=== PATIENT | male | born 1960 | race Caucasian/White ===

== ENCOUNTER 2016-08-20 18:14 | Emergency (ER) | payer OTHER ==
[2016-08-20 19:01] VITALS: BP 133/77; PULSE 77; TEMP 98.3; BMI 33.9
[2016-08-20] MEDS ORDERED: SODIUM CHLORIDE 0.9% 1000 ML INFUS.BAG IV ONE (19:52)
--- NOTE | 2016-08-20 20:05 | PDOC ---
History of Present Illness - General Chief Complaint: Pain Stated Complaint: LEG PAIN Time Seen by Provider: 08/20/16 19:13 - History of Present Illness Initial Comments: 08/20/16 19:59 CHIEF COMPLAINT: leg pain, blood sugar HISTORY OF PRESENT ILLNESS: 56 yo M with hx of HTN, IDDM, and HLD presents to ED with pain to left leg starting this afternoon at 5 pm. Patient reports that he went to his doctor around 4 pm today and was told that he needed to go to the hospital for a blood sugar of over 600, but he didn't want to go to the hospital at first. Around 5 pm he was walking with his son and suddenly he felt pain to his left leg down to the knee, "like a nerve pain and a cramping." PAST MEDICAL HISTORY: as per HPI FAMILY HISTORY: Denies SOCIAL HISTORY: Denies tobacco, alcohol, illicit drug use. SURGICAL HISTORY: Denies ALLERGIES: No known drug allergies REVIEW OF SYSTEMS General/Constitutional: Denies fever or chills. Denies weakness, weight change. HEENT: Denies change in vision. Denies ear pain or discharge. Denies sore throat. Cardiovascular: Denies chest pain or shortness of breath. Respiratory: Denies cough, wheezing, or hemoptysis. Gastrointestinal: Denies nausea, vomiting, diarrhea or constipation. Denies rectal bleeding. Genitourinary: Denies dysuria, frequency, or change in urination. Musculoskeletal: Pain to left leg, from groin to knee. Right lower back pain. Skin and breasts: Denies rash or easy bruising. Neurologic: Denies headache, vertigo, loss of consciousness, or loss of sensation. PHYSICAL EXAM General Appearance: Well-appearing, appropriately dressed. No apparent distress. HEENT: EOMI, PERRLA, normal ENT inspection, normal voice, TMs normal, pharynx normal. No conjunctival pallor. No photophobia, scleral icterus. Neck: Supple. Trachea midline. No tenderness, rigidity, carotid bruit, stridor , lymphadenopathy, or thyromegaly. Respiratory/Chest: Lungs CTAB. No shortness of breath, chest tenderness, respiratory distress, accessory muscle use. No crackles, rales, rhonchi, stridor , wheezing, dullness Cardiovascular: RRR. S1, S2. No JVD, murmur, bradycardia, tachycardia. Vascular Pulses: Dorsalis-Pedis (R): 2+, Dorsalis-Pedis (L): 2+ Gastrointestinal/Abdominal: Normal bowel sounds. Abdomen soft, non-distended. No tenderness or rebound tenderness. No organomegaly, pulsatile mass, guarding , hernia, hepatomegaly, splenomegaly. Lymphatic: No adenopathy, tenderness. Musculoskeletal/Extremities: Pain elicited to left leg with knee flexion, negative straight leg test. FROM of all other extremities, normal capillary refill. Pelvis Stable. No CVA tenderness. No tenderness to extremities, pedal edema, swelling, erythema or deformity. Integumentary: Appropriate color, dry, warm. 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 Fully oriented, alert. Appropriate mood/affect. Motor strength 5/5. No appreciable EOM palsy, facial droop or sensory deficit. Past History - Past Medical History Allergies/Adverse Reactions: Allergies Allergy/AdvReac Type Severity Reaction Status Date / Time No Known Allergies Allergy Verified 06/09/15 10:05 Home Medications: Ambulatory Orders Insulin (Levemir) [Levemir Vial] 2 unit SQ DAILY 08/20/16 Losartan Potassium 25 mg PO DAILY 08/20/16 Simvastatin 20 mg PO DAILY 08/20/16 Anemia: No Asthma: No Cancer: No Cardiac Disorders: No CVA: No COPD: No DVT: No Dementia: No Diabetes: Yes GI Disorders: No Disorders: No HTN: Yes Hypercholesterolemia: Yes HIV: No Kidney Stones: No Liver Disease: No Psychiatric Problems: No Seizures: No Thyroid Disease: No Lung CA: No Other medical history: Bilateral Inguinal Hernias - Surgical History Appendectomy: Yes - Psycho/Social/Smoking Cessation Hx Suicidal Ideation: No Smoking History: Never smoked Hx Alcohol Use: No Drug/Substance Use Hx: No Substance Use Type: None *Physical Exam - Vital Signs Last Vital Signs Temp Pulse Resp BP Pulse Ox 98.3 F 77 20 133/77 99 08/20/16 18:55 08/20/16 18:55 08/20/16 18:55 08/20/16 18:55 08/20/16 18:55 ED Treatment Course - LABORATORY CBC & Chemistry Diagram: 08/20/16 20:12 08/20/16 20:12 Medical Decision Making - Medical Decision Making 08/20/16 20:05 56 yo M with hx of HTN, IDDM, and HLD presents to ED with pain to left leg starting this afternoon at 5 pm. Concern for rhabdo -CBC, CMP, Mg, CPK, Acetone -Dopple US r/o DVT Labs: Creatinine 2.5, no baseline for comparison, otherwise unremarkable. -1L VS US negative for DVT. At this time patient reports that his leg pain has resolved. Advised patient to f/u with PMD for further evaluation of renal failure and of signs and symptoms for return to ER. Patient verbalized understanding and agrees to plan. *DC/Admit/Observation/Transfer Diagnosis at time of Disposition: Acute kidney injury, Left leg pain - Discharge Dispostion Disposition: HOME Condition at time of disposition: Stable Admit: No - Referrals Referrals: Jace Tatum [Primary Care Provider] - Marcel Martin MD [Staff Physician] - - Patient Instructions Printed Discharge Instructions: DI for Kidney Failure Additional Instructions: You must follow up with the urologist within the next week for further evaluation of your kidneys. Please monitor your blood sugar daily and take your diabetes medication as prescribed by your doctor. If you experience any worsening leg pain, shortness of breath, chest pain, dizziness, or any new or worsening symptoms, please return to the ER. Debe seguir con el urlogo en la prxima semana para satish evaluacin ms profunda de stevie riones. Por favor, monitoree caldera nivel de azcar en la tee diariamente y tome stevie medicamentos para la diabetes segn lo recetado por caldera m dico. Si experimenta cualquier empeoramiento del dolor en las piernas, dificultad para respirar, dolor en el pecho, mareos, o cualquier nuevo o empeoramiento de los sntomas, por favor regrese a la medina de emergencias. Print Language: HAITIAN - Post Discharge Activity Work/School Note: Back to Work
--- NOTE | 2016-08-20 20:15 | PDOC ---
*Physical Exam - Vital Signs Last Vital Signs Temp Pulse Resp BP Pulse Ox 98.3 F 77 20 133/77 99 08/20/16 18:55 08/20/16 18:55 08/20/16 18:55 08/20/16 18:55 08/20/16 18:55 Medical Decision Making - Medical Decision Making 08/20/16 20:14 agree with care from FILM CRITIC Lopez
[2016-08-20 20:26] LABS: BASOPHIL 1.1 % (0-2.0); EOSINOPHIL 4.1 % (0-4.5); MCH 29.1 pg (25.7-33.7); MCHC 34.2 g/dl (32.0-35.9); MEAN CELL VOLUME 85.2 fl (80-96); MEAN PLT VOLUME 8.1 fl (7.5-11.1); NEUTROPHILS 41.4 % (42.8-82.8); PLATELET COUNT 218 K/MM3 (134-434); RDW 12.8 % (11.9-15.9); WHITE BLOOD COUNT 4.2 K/mm3 (4.0-10.0)
[2016-08-20 20:38] LABS: INR 0.97 (0.82-1.09); PROTHROMBIN TIME (PATIENT) 10.7 SEC (9.98-11.88)
[2016-08-20 20:42] LABS: URINE APPEARANCE CLEAR; URINE BILIRUBIN NEGATIVE (NEGATIVE); URINE COLOR LTYELLOW; URINE GLUCOSE (UA) 2+ (NEGATIVE); URINE KETONE NEGATIVE (NEGATIVE); URINE LEUK ESTERASE NEGATIVE (NEGATIVE); URINE NITRITE NEGATIVE (NEGATIVE); URINE UROBILINOGEN NEGATIVE E.U./dl (0.2-1.0)
[2016-08-20 20:48] LABS: URINE BLOOD 1+ (NEGATIVE); URINE PROTEIN 2+ (NEGATIVE)
[2016-08-20 20:49] LABS: URINE MUCUS RARE; URINE RBC 1 /hpf (0-3); URINE WBC <1 /hpf (3-5)
[2016-08-20 21:08] LABS: ALBUMIN 3.3 g/dl (3.4-5.0); ANION GAP 7 (8-16); CALCIUM 8.9 mg/dL (8.5-10.1); CO2 26 mmol/L (21-32); GLUCOSE,RANDOM 104 mg/dL (74-106)
[2016-08-20 21:12] LABS: ALK PHOS 109 U/L (45-117); BILIRUBIN,TOTAL 0.3 mg/dL (0.2-1.0); CREATININE 2.5 mg/dL (0.7-1.3); SGOT/AST 14 U/L (15-37); SGPT/ALT 26 U/L (12-78)
[2016-08-20 22:33] LABS: ACETONE SERUM NEGATIVE (NEGATIVE)
== END 2016-08-21 00:11 | disposition home or self-care (01) ==
LOC: JER 18:14
DX: M79.605 Pain in left leg (principal); N17.9 Acute kidney failure, unspecified; E11.9 Type 2 diabetes mellitus without complications; Z79.4 Long term (current) use of insulin; I10 Essential (primary) hypertension; E78.00 Pure hypercholesterolemia, unspecified
CPT/HCPCS: 36415; 80053; 81003; 81015; 82009; 82550; 82553; 83735; 85025; 85610; 87086; 93971-TC; 99281-25

== ENCOUNTER 2018-08-27 16:02 | Inpatient (IN) | payer OTHER ==
[2018-08-27] MEDS ORDERED: ALBUTEROL SO4 2.5/IPRATROPIUM 0.5 INH SOL 3 ML VIAL.NEB. NEB ONE ×3 (16:37→18:01)
[2018-08-27] MEDS ORDERED: guaiFENesin/CODEINE 10 ML UNIT-DOSE CUPS PO ONE (16:37)
[2018-08-27] MEDS ORDERED: guaiFENesin/CODEINE 10 ML UNIT-DOSE CUPS ONE (16:43)
[2018-08-27] MEDS ORDERED: AZITHROMYCIN 250 MG TABLET PO ONE (16:45)
--- NOTE | 2018-08-27 16:59 | PDOC ---
Documentation entered by Ninfa Luna SCRIBE, acting as scribe for Prachi Mendiola MD. Prachi Mendiola MD: This documentation has been prepared by the scribe, Ninfa Luna SCRIBE, under my direction and personally reviewed by me in its entirety. I confirm that the documentation accurately reflects all work, treatment, procedures, and medical decision making performed by me. History of Present Illness - General Chief Complaint: Cold Symptoms Stated Complaint: COUGH,FEVER Time Seen by Provider: 08/27/18 16:04 History Source: Patient Exam Limitations: No Limitations - History of Present Illness Initial Comments: 08/27/18 16:41 The patient is a 58-year-old male with a past medical history significant for HTN, DM, anemia, HLD, and prior surgical history of appendectomy presents to the emergency department with a cough, fever, shortness of breath, elevated blood sugar and elevated blood pressure. Per daughter at bedside, the patients been having a 1-day history of a cough, associated with high-grade fever to 103s. The daughter reports, the patient took Tylenol last night. The patient was also noted to have elevated blood pressure, states the machine was unable to read it, and elevated glucose levels. The daughter reports the patient has a blocked vein in his heart, for which he was scheduled for a procedure, which he was unable to complete secondary to kidney not working. Allergies: NKA Social history: No tobacco, alcohol or recreational drug use reported. PCP: Dr. Mable Tatum. Past History - Past Medical History Allergies/Adverse Reactions: Allergies Allergy/AdvReac Type Severity Reaction Status Date / Time No Known Allergies Allergy Verified 08/27/18 16:04 Home Medications: Ambulatory Orders Losartan Potassium 25 mg PO DAILY 08/20/16 Atorvastatin Ca [Lipitor] 20 mg PO HS 08/27/18 Carvedilol 3.125 mg PO DAILY 08/27/18 Insulin Degludec [Tresiba Flextouch U-100] 40 unit SQ DAILY 08/27/18 Anemia: No Asthma: No Cancer: No Cardiac Disorders: No CVA: No COPD: No DVT: No Dementia: No Diabetes: Yes GI Disorders: No Disorders: No HTN: Yes Hypercholesterolemia: Yes Kidney Stones: No Liver Disease: No Psychiatric Problems: No Seizures: No Thyroid Disease: No Lung CA: No - Surgical History Appendectomy: Yes - Suicide/Smoking/Psychosocial Hx Smoking History: Never smoked Hx Alcohol Use: No Drug/Substance Use Hx: No Substance Use Type: None Review of Systems - Review of Systems Able to Perform ROS?: Yes Comments:: 08/27/18 16:19 GENERAL/CONSTITUTIONAL: +fever. No chills. No weakness. HEAD, EYES, EARS, NOSE AND THROAT: No change in vision. No ear pain or discharge. No sore throat. CARDIOVASCULAR: +elevated BP. No chest pain or shortness of breath. RESPIRATORY: +cough. No wheezing, or hemoptysis. GASTROINTESTINAL: No nausea, vomiting, diarrhea or constipation. GENITOURINARY: No dysuria, frequency, or change in urination. MUSCULOSKELETAL: No joint or muscle swelling or pain. No neck or back pain. SKIN: No rash NEUROLOGIC: No headache, vertigo, loss of consciousness, or change in strength/ sensation. ENDOCRINE: +elevated glucose levels. No increased thirst. No abnormal weight change. HEMATOLOGIC/LYMPHATIC: No anemia, easy bleeding, or history of blood clots. ALLERGIC/IMMUNOLOGIC: No hives or skin allergy. *Physical Exam - Vital Signs Last Vital Signs Temp Pulse Resp BP Pulse Ox 99.6 F 88 20 190/90 H 95 08/27/18 16:03 08/27/18 16:03 08/27/18 16:03 08/27/18 16:03 08/27/18 16:03 - Physical Exam Comments: GENERAL: Awake, alert, and fully oriented, in no acute distress HEAD: No signs of trauma EYES: PERRLA, EOMI, sclera anicteric, conjunctiva clear ENT: Auricles normal inspection, hearing grossly normal, nares patent, oropharynx clear without exudates. Moist mucosa NECK: Normal ROM, supple, no lymphadenopathy, JVD, or masses LUNGS: Mild tachypnea. Dec air entry B/L with exp wheezes on L side. No rhonchi , no rales. HEART: Regular rate and rhythm, normal S1 and S2, no murmurs, rubs or gallops ABDOMEN: Soft, nontender, normoactive bowel sounds. No guarding, no rebound. No masses EXTREMITIES: Normal range of motion, no edema. No clubbing or cyanosis. No cords, erythema, or tenderness NEUROLOGICAL: Cranial nerves II through XII grossly intact. Normal speech, normal gait. Motor and sensation intact SKIN: Warm, Dry, normal turgor, no rashes or lesions noted. ED Treatment Course - LABORATORY CBC & Chemistry Diagram: 08/27/18 17:45 08/27/18 17:45 - RADIOLOGY Radiology Studies Ordered: Category Date Time Status CHEST PA & LAT [RAD] Stat Radiology 08/27/18 16:30 Ordered Medical Decision Making - Medical Decision Making 08/27/18 16:36 DDx includes flu vs pna vs bronchitis. Will give albuterol and robitussin AC for symptoms. CXR to r/o pna. Flu swab. 08/27/18 16:54 CXR c/w pneumonia. Will treat symptomatically. If he does not significantly improve, will admit. 08/27/18 17:36 Pt reassessed. Wheezing has worsened, but air movement has improved. Will send labs and add IV fluids, rocephin, and additional nebs. Will plan for admission. 08/27/18 18:40 Pt accepted for admission by Dr. Perez. *DC/Admit/Observation/Transfer Diagnosis at time of Disposition: Community acquired pneumonia Qualifiers: Laterality: right Lung location: middle lobe of lung Qualified Code(s): J18.1 - Lobar pneumonia, unspecified organism - Discharge Dispostion Condition at time of disposition: Stable Decision to Admit order: Yes - Referrals - Patient Instructions - Post Discharge Activity
[2018-08-27] MEDS ORDERED: AZITHROMYCIN 500 MG TABLET ONE (17:00)
[2018-08-27] MEDS ORDERED: CEFTRIAXONE 1 GM in DEXTROSE 5%-WATER - 50 ML IVPB ONE (17:35)
[2018-08-27] MEDS ORDERED: SODIUM CHLORIDE 1,000 ML IV STA (17:35)
[2018-08-27] MEDS ORDERED: cefTRIAXone SODIUM 1 GM VIAL ONE (18:00)
[2018-08-27] MEDS: ALBUTEROL SO4 2.5/IPRATROPIUM 0.5 INH SOL 3 ML VIAL.NEB. NEB SCH ×3 (18:01→18:20)
[2018-08-27 18:14] LABS: BASO % 1.1 % (0-2.0); EOS % 0.9 % (0-4.5); HEMOGLOBIN 9.7 GM/dl (11.7-16.9); LYMPH % 9.9 % (8-40); MCH 28.6 pg (25.7-33.7); MCHC 32.3 g/dl (32.0-35.9); MEAN CELL VOLUME 88.7 fl (80-96); MEAN PLT VOLUME 8.6 fl (7.5-11.1); MONO % 6.3 % (3.8-10.2); NEUT % 81.8 % (42.8-82.8); PLATELET COUNT 251 K/MM3 (134-434); RBC 3.38 M/mm3 (4.00-5.60); RDW 14.1 % (11.9-15.9); WHITE BLOOD COUNT 9.9 K/mm3 (4.0-10.8)
[2018-08-27 18:23] LABS: ALBUMIN 3.3 g/dl (3.4-5.0); BILIRUBIN,TOTAL 0.9 mg/dl (0.2-1); CALCIUM 8.1 mg/dl (8.5-10); CREATININE 3.1 mg/dl (0.55-1.3); POTASSIUM 5.1 mmol/L (3.5-5.1); TOT PROT 6.9 g/dl (6.4-8.2)
--- NOTE | 2018-08-27 20:20 | HP ---
CHIEF COMPLAINT: SOB, Fever, Elevated BP PCP: Dr. Jace Tatum HISTORY OF PRESENT ILLNESS: This is a 58 y/o man with a PMHx of HTN, DM, Renal Insufficiency, Anemia. Who presents to the ED with his family for SOB, fever, productive yellow cough, elevated BP and BS. The patient is Korean speaking and the daughter translated. Per the daughter the patient had subjective fevers of 103 at home yesterday and he was having difficulty breathing and generalized bodyaches. Per the daughter patient was suppose to have a procedure for a "artery blockage" but it was cancelled due to his kidney function. Patient missed his home meds today due to feeling ill. Patient denies dizziness, CP, palpitations, AP, N/V/D , constipation, dysuria. Patient had recent travel [place] 2 months ago. ER course was notable for: (1) Hgb 9.7 (2) Influenza A+B Negative (3) Recent Travel: [facility] PAST MEDICAL HISTORY: See Above PAST SURGICAL HISTORY: Social History: Smoking: Never Alcohol: None Drugs: None Lives with family Family History: Non-Contributory Allergies No Known Allergies Allergy (Verified 08/27/18 16:04) HOME MEDICATIONS: Home Medications Medication Instructions Recorded Losartan Potassium 25 mg PO DAILY 08/20/16 Atorvastatin Ca [Lipitor] 20 mg PO HS 08/27/18 Carvedilol 3.125 mg PO DAILY 08/27/18 Insulin Degludec [Tresiba 40 unit SQ DAILY 08/27/18 Flextouch U-100] REVIEW OF SYSTEMS CONSTITUTIONAL: fever, chills ,malaise Absent: diaphoresis, generalized weakness, loss of appetite, weight change HEENT: Absent: rhinorrhea, nasal congestion, throat pain, throat swelling, difficulty swallowing, mouth swelling, ear pain, eye pain, visual changes CARDIOVASCULAR: Absent: chest pain, syncope, palpitations, irregular heart rate, lightheadedness , peripheral edema RESPIRATORY: cough, shortness of breath, dyspnea with exertion, Absent: orthopnea, wheezing, stridor, hemoptysis GASTROINTESTINAL: Absent: abdominal pain, abdominal distension, nausea, vomiting, diarrhea, constipation, melena, hematochezia GENITOURINARY: Absent: dysuria, frequency, urgency, hesitancy, hematuria, flank pain, genital pain MUSCULOSKELETAL: myalgia Absent: arthralgia, joint swelling, back pain, neck pain SKIN: Absent: rash, itching, pallor HEMATOLOGIC/IMMUNOLOGIC: Absent: easy bleeding, easy bruising, lymphadenopathy, frequent infections ENDOCRINE: Absent: unexplained weight gain, unexplained weight loss, heat intolerance, cold intolerance NEUROLOGIC: Absent: headache, focal weakness or paresthesias, dizziness, unsteady gait, seizure, mental status changes, bladder or bowel incontinence PSYCHIATRIC: Absent: anxiety, depression, suicidal or homicidal ideation, hallucinations. PHYSICAL EXAMINATION Vital Signs - 24 hr 08/27/18 08/27/18 16:03 19:10 Temperature 99.6 F 99.2 F Pulse Rate 88 Pulse Rate [ 88 Radial] Respiratory 20 18 Rate Blood Pressure 190/90 H Blood Pressure 185/91 H [Arm] O2 Sat by Pulse 95 95 Oximetry (%) GENERAL: Awake, alert, and fully oriented, in mild resp distress. HEAD: Normal with no signs of trauma. EYES: Pupils equal, round and reactive to light, extraocular movements intact, sclera anicteric, conjunctiva clear. No lid lag. EARS, NOSE, THROAT: Ears normal, nares patent, oropharynx clear without exudates. Dry mucous membranes. NECK: Normal range of motion, supple without lymphadenopathy, JVD, or masses. LUNGS: Breath sounds diminished bilaterally. +wheezes, + crackles. + accessory muscle use. HEART: Regular rate and rhythm, normal S1 and S2 without murmur, rub or gallop. ABDOMEN: Soft, nontender, not distended, normoactive bowel sounds, no guarding, no rebound, no masses. No hepatomegaly or splenomegaly. MUSCULOSKELETAL: Normal range of motion at all joints. No bony deformities or tenderness. No CVA tenderness. UPPER EXTREMITIES: 2+ pulses, warm, well-perfused. No cyanosis. No clubbing. No peripheral edema. LOWER EXTREMITIES: 2+ pulses, warm, well-perfused. No calf tenderness.+2 peripheral edema bilaterally. NEUROLOGICAL: Cranial nerves II-XII intact. Normal speech. Normal gait. PSYCHIATRIC: Cooperative. Good eye contact. Appropriate mood and affect. SKIN: Warm, dry, normal turgor, no rashes or lesions noted, normal capillary refill. Laboratory Results - last 24 hr 08/27/18 08/27/18 08/27/18 16:47 17:45 17:45 WBC 9.9 RBC 3.38 L Hgb 9.7 L Hct 30.0 L MCV 88.7 MCH 28.6 MCHC 32.3 RDW 14.1 Plt Count 251 MPV 8.6 Absolute Neuts (auto) 8.1 Neutrophils % 81.8 Lymphocytes % 9.9 Monocytes % 6.3 Eosinophils % 0.9 Basophils % 1.1 Sodium 138 Potassium 5.1 Chloride 111 H Carbon Dioxide 20 L Anion Gap 7 L BUN 42.0 H Creatinine 3.1 H Est GFR (CKD-EPI)AfAm 24.21 Est GFR (CKD-EPI)NonAf 20.89 Random Glucose 101 Calcium 8.1 L Total Bilirubin 0.9 AST 21 ALT 18 Alkaline Phosphatase 58 Total Protein 6.9 Albumin 3.3 L Influenza A (Rapid) Negative Influenza B (Rapid) Negative ASSESSMENT/PLAN: This is a 58 y/o man admitted for Community Acquired Pneumonia, Acute Respiratory Failure, Acute on Chronic CKD for further evaluation of their emergent condition. Plan: See Problem List FEN PO Fluids as tolerated Replete lytes prn Low Na Diabetic Diet DVT ppx OOB SCDs Heparin SQ Dispo: Requires Inpatient Care Problem List - Problem (1) Community acquired pneumonia Assessment/Plan: CURB65 1 Blood Cultures-pending Urine Cultures- pending Urine Legionella Chest Xray image RML Infiltrate, ? LLL Infiltrate Ceftriaxone, Azithromycin given in ED, will continue O2 Duonebs Monitor CBC, BMP Tylenol prn Code(s): J18.9 - PNEUMONIA, UNSPECIFIED ORGANISM Qualifiers: Laterality: right Lung location: middle lobe of lung Qualified Code(s): J18.1 - Lobar pneumonia, unspecified organism (2) Acute kidney injury Assessment/Plan: Likely acute on chronic CKD Patient and patient's daughter report seeing Dr Dumont outpatient Monitor BMP Renal US Consider Nephrology consult if no improvement Avoid Nephrotoxic drugs Code(s): N17.9 - ACUTE KIDNEY FAILURE, UNSPECIFIED (3) HTN (hypertension) Assessment/Plan: sub optimal Per patient's daughter patient did not take his home meds today due to illness Continue home meds Monitor BP Code(s): I10 - ESSENTIAL (PRIMARY) HYPERTENSION (4) HLD (hyperlipidemia) Assessment/Plan: Continue home med Code(s): E78.5 - HYPERLIPIDEMIA, UNSPECIFIED (5) Anemia Assessment/Plan: Likely secondary to CKD Hgb 9.7 Will transfuse if Hgb < 7.0 Monitor CBC Code(s): D64.9 - ANEMIA, UNSPECIFIED Visit type - Emergency Visit Emergency Visit: Yes ED Registration Date: 08/27/18 Care time: The patient presented to the Emergency Department on the above date and was hospitalized for further evaluation of their emergent condition. - New Patient This patient is new to me today: Yes Date on this admission: 08/27/18 - Critical Care Critical Care patient: No
[2018-08-27] MEDS ORDERED: ATORVASTATIN CA 80 MG TABLET (FP) PO SCH (22:00)
[2018-08-27] MEDS: INSULIN SLIDING SCALE (NOVOLOG) 1 VIAL SQ SCH (22:04)
[2018-08-27] MEDS: HEPARIN NA (PORCINE) 5,000 UNITS/ML 1ML VIAL SQ SCH (22:12)
[2018-08-27] MEDS: CARVEDILOL 3.125 MG TABLET (FP) PO SCH (22:12)
[2018-08-27 22:47] LABS: EPITHELIAL CELLS FEW /hpf
[2018-08-28] MEDS: INSULIN SLIDING SCALE (NOVOLOG) 1 VIAL SQ SCH ×4 (06:37→21:31)
--- NOTE | 2018-08-28 08:14 | PN ---
Physical Exam: SUBJECTIVE: Patient seen and examined, pt c/o persistent dry cough,sob, epigastric pain, denies cp, palpitations, N/V/D or urinary symptoms. OBJECTIVE: Vital Signs Period Temp Pulse Resp BP Sys/Newman Pulse Ox Last 24 Hr 98.6 F-99.8 F 71-88 18-21 148-190/70-95 95-100 GENERAL: The patient is awake, alert, and fully oriented, in no acute distress. HEAD: Normal with no signs of trauma. EYES: PERRL, extraocular movements intact, sclera anicteric, conjunctiva clear. No ptosis. ENT: Ears normal, nares patent, oropharynx clear without exudates, moist mucous membranes. NECK: Trachea midline, full range of motion, supple. LUNGS: Breath sounds equal, diminished bilaterally, no wheezes, no crackles, no accessory muscle use. HEART: Regular rate and rhythm, S1, S2 without murmur, rub or gallop. ABDOMEN: Soft, mild epigastric tenderness, non-distended, nor-moactive bowel sounds, no guarding, no rebound, no hepatosplenomegaly, no masses. EXTREMITIES: 2+ pulses, warm, well-perfused, no edema. NEUROLOGICAL: Cranial nerves II through XII grossly intact. Normal speech, gait not observed. PSYCH: Normal mood, normal affect. SKIN: Warm, dry, normal turgor, no rashes or lesions noted Laboratory Results - last 24 hr 08/27/18 08/27/18 08/27/18 16:47 17:45 17:45 WBC 9.9 RBC 3.38 L Hgb 9.7 L Hct 30.0 L MCV 88.7 MCH 28.6 MCHC 32.3 RDW 14.1 Plt Count 251 MPV 8.6 Absolute Neuts (auto) 8.1 Neutrophils % 81.8 Lymphocytes % 9.9 Monocytes % 6.3 Eosinophils % 0.9 Basophils % 1.1 Sodium 138 Potassium 5.1 Chloride 111 H Carbon Dioxide 20 L Anion Gap 7 L BUN 42.0 H Creatinine 3.1 H Est GFR (CKD-EPI)AfAm 24.21 Est GFR (CKD-EPI)NonAf 20.89 POC Glucometer Random Glucose 101 Calcium 8.1 L Total Bilirubin 0.9 AST 21 ALT 18 Alkaline Phosphatase 58 Total Protein 6.9 Albumin 3.3 L Urine Color Urine Appearance Urine pH Urine Protein Urine Glucose (UA) Urine Ketones Urine Blood Urine Nitrite Urine Bilirubin Urine Urobilinogen Ur Leukocyte Esterase Urine RBC Urine WBC Ur Transition Epith Cell Urine Bacteria Influenza A (Rapid) Negative Influenza B (Rapid) Negative 08/27/18 08/27/18 08/28/18 20:59 22:15 06:04 WBC RBC Hgb Hct MCV MCH MCHC RDW Plt Count MPV Absolute Neuts (auto) Neutrophils % Lymphocytes % Monocytes % Eosinophils % Basophils % Sodium Potassium Chloride Carbon Dioxide Anion Gap BUN Creatinine Est GFR (CKD-EPI)AfAm Est GFR (CKD-EPI)NonAf POC Glucometer 107 103 Random Glucose Calcium Total Bilirubin AST ALT Alkaline Phosphatase Total Protein Albumin Urine Color Yellow Urine Appearance Clear Urine pH 5.5 Urine Protein 3+ H Urine Glucose (UA) Negative Urine Ketones Negative Urine Blood 2+ H Urine Nitrite Negative Urine Bilirubin Negative Urine Urobilinogen 0.2 Ur Leukocyte Esterase Negative Urine RBC 5-10 Urine WBC 0-2 Ur Transition Epith Cell Few Urine Bacteria Few Influenza A (Rapid) Influenza B (Rapid) Active Medications Generic Name Dose Route Start Last Admin Trade Name Freq PRN Reason Stop Dose Admin Albuterol/Ipratropium 1 amp 08/27/18 19:26 Duoneb - NEB Q6H PRN SHORTNESS OF BREATH Atorvastatin Calcium 20 mg 08/27/18 22:00 08/27/18 22:12 Lipitor - PO 20 mg HS [facility] Administration Carvedilol 3.125 mg 08/27/18 21:45 08/27/18 22:12 Coreg - PO 3.125 mg BID [facility] Administration Guaifenesin 10 ml 08/27/18 19:28 Robitussin Dm - PO Q6H PRN COUGH Heparin Sodium (Porcine) 5,000 unit 08/27/18 22:00 08/27/18 22:12 Heparin - SQ 5,000 unit BID [facility] Administration Azithromycin 500 mg in 250 mls @ 250 mls/hr 08/28/18 10:00 Zithromax 500mg Ivpb (Pre-Docked) IVPB DAILY [facility] Ceftriaxone Sodium 50 mls @ 100 mls/hr 08/28/18 10:00 Ceftriaxone 1 Gm-D5w Bag IVPB DAILY [facility] Protocol Insulin Aspart 1 vial 08/27/18 22:00 08/28/18 06:37 Novolog Vial Sliding Scale - SQ Not Given ACHS [facility] Protocol ASSESSMENT/PLAN: This is a 58 y/o man with a PMHx of HTN, DM,, CAD,Renal Insufficiency and Anemia , who presents to the ED with his family for SOB, fever, productive yellow cough , elevated BP and BS. Admitted with CAP and acute on chronic CKD. Dr. Leonard Tatum Card Dr. Cardenas Renal Dr. Dumont * Community acquired pneumonia -[id number] 1 -Blood Cultures-pending -Urine Cultures- pending -Urine Legionella neg - Influenza ruled out -Chest Xray image infiltrate and upper lung mass - pulmonary consulted - will get CT chest -will cont on Ceftriaxone, Azithromycin - afebrile with no leukocytosis - monitor O2 -Duonebs/ cough meds -Tylenol prn *r/o TB,recent travel to [facility] -CxR- Upper lung mass - isolation precautions - will check AFB/ sputum culture/ Quantiferon's - PPD ordered - CT chest * Acute kidney injury on chronic CKD - cre 2.5 on 08/20/16 - Bun/cre 42/3.1 >40/3.3 - Nephrology consult - Renal US - IV hydration - will hold off on Losartan -Renal US - will f/u on Gate Agent * CAD - follows with cardiology Dr. Cardenas - reports abnormal stress test, cardiac cath on hold due to CKD - denies cp - will resume on ASA, BB and Statin * HTN-elevated, likely due to medication non complains - will cont on Coreg -will hold off Losartan in view of MARIANO -Monitor BP *HLD - will cont on Statin * Anemia-Likely secondary to CKD -(12.2 on 08/20/16) -Hgb 9.7/30> 8.3/25.7 - will check stool OB, fe studies, b12,Folate -Will transfuse if Hgb < 7.0 -Monitor CBC * DM - FS - Lispro sliding scale - Tresiba NF- will substitute with Levemir (lower dose in view of low BS) - consistent carb diet * VTE: Heparin SQ * F/E/N: Diabetes diet/ IVF Visit type - Emergency Visit Emergency Visit: Yes ED Registration Date: 08/27/18 Care time: The patient presented to the Emergency Department on the above date and was hospitalized for further evaluation of their emergent condition. - New Patient This patient is new to me today: No - Critical Care Critical Care patient: No
[2018-08-28 09:48] LABS: EOS % 1.9 % (0-4.5); HEMATOCRIT 25.7 % (35.4-49); HEMOGLOBIN 8.3 GM/dl (11.7-16.9); MCH 28.5 pg (25.7-33.7); MCHC 32.2 g/dl (32.0-35.9); MEAN CELL VOLUME 88.4 fl (80-96); MEAN PLT VOLUME 8.7 fl (7.5-11.1); MONO % 8.5 % (3.8-10.2); NEUT % 71.6 % (42.8-82.8); PLATELET COUNT 169 K/MM3 (134-434); RBC 2.91 M/mm3 (4.00-5.60); RDW 13.6 % (11.9-15.9); WHITE BLOOD COUNT 6.2 K/mm3 (4.0-10.8)
[2018-08-28 09:52] LABS: CALCIUM 7.8 mg/dl (8.5-10); CREATININE 3.3 mg/dl (0.55-1.3); POTASSIUM 4.9 mmol/L (3.5-5.1)
[2018-08-28] MEDS: SODIUM CHLORIDE 1,000 ML IV SCH (10:13)
[2018-08-28] MEDS: ALBUTEROL SO4 2.5/IPRATROPIUM 0.5 INH SOL 3 ML VIAL.NEB. NEB PRN ×2 (10:14→18:14)
[2018-08-28] MEDS: CEFTRIAXONE 1 G/50 ML PREMIX 50 ML IVPB SCH (10:14)
[2018-08-28] MEDS: ASPIRIN COATED 81 MG TABLET.EC PO SCH (10:14)
[2018-08-28] MEDS: CARVEDILOL 3.125 MG TABLET (FP) PO SCH ×2 (10:14→21:19)
[2018-08-28] MEDS: PANTOPRAZOLE 40 MG TABLET (FP) PO SCH (10:14)
[2018-08-28] MEDS: AZITHROMYCIN IVPB 500 MG/250 ML BAG IVPB SCH (10:15)
[2018-08-28] MEDS: INSULIN (LEVEMIR) 100 UNITS/ML UNITS SQ SCH (10:15)
[2018-08-28] MEDS: HEPARIN NA (PORCINE) 5,000 UNITS/ML 1ML VIAL SQ SCH ×2 (10:16→21:20)
[2018-08-28] MEDS: guaiFENesin/D-METHORPHAN HB 10 ML UNIT-DOSE CUPS PO PRN ×3 (10:16→23:29)
[2018-08-28] MEDS ORDERED: TUBERCULIN PPD 5 TU/0.1ML SYRINGE (IN PATIENT USE ONLY) ID ONE (11:00)
--- NOTE | 2018-08-28 12:55 | EKG ---
Test Reason : Blood Pressure : / mmHG Vent. Rate : 087 BPM Atrial Rate : 087 BPM P-R Int : 162 ms QRS Dur : 072 ms QT Int : 352 ms P-R-T Axes : 060 008 086 degrees QTc Int : 423 ms NORMAL SINUS RHYTHM NORMAL ECG NO PREVIOUS ECGS AVAILABLE Confirmed by JUAN ONEIL MD ([id number]) on 08/28/2018 12:55:35 PM Referred By: DR CORDON Confirmed By:JUAN ONEIL MD
[2018-08-28] MEDS: amLODIPine BESYLATE 5 MG TABLET (FP) PO SCH (13:59)
--- NOTE | 2018-08-28 15:01 | CON.PULM ---
Consult Consult Specialty:: PULM/CCM Referred by:: Hospitalist Reason for Consultation:: SOB - History of Present Illness Chief Complaint: SOB History of Present Illness: 58 M, HTN, DM, Renal Insufficiency, Anemia, and remote smoking history. Patient is mostly Ethiopian speaking and is a poor historian. His family is at the bedside for further information and translation. They report that he was admitted for almost 2 months in the about 10 years ago in the . Does not sound as if he had respiratory failure. Apparently when [place] the [place] he had a normal CXR. No CXR since that time. No previous CT chest. Has had URI symptoms for the past week or so. [place] the [place] about 5 weeks ago. Reports fever, malaise, and pleuritic type CP. No reported hemoptysis or night sweats. No unexplained weight loss. No sick contacts. Family denies any previous P TB contacts. 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 - History Source History Provided By: Patient, Family Member Limitations to Obtaining History: Language Barrier - Past Medical History Pulmonary: Yes: Pneumonia, Other (prolonged 2 month hospitalization ). No: Asthma, Cancer, COPD, O2 Dependent, Previously Intubated, Pulmonary Embolus, Pulmonary Fibrosis, Sleep Apnea - Alcohol/Substance Use Hx Alcohol Use: No - Smoking History Smoking history: Never smoked Have you smoked in the past 12 months: No Home Medications - Allergies Allergies/Adverse Reactions: Allergies Allergy/AdvReac Type Severity Reaction Status Date / Time No Known Allergies Allergy Verified 08/27/18 16:04 - Home Medications Home Medications: Ambulatory Orders Losartan Potassium 25 mg PO DAILY 08/20/16 Atorvastatin Ca [Lipitor] 20 mg PO HS 08/27/18 Carvedilol 3.125 mg PO DAILY 08/27/18 Insulin Degludec [Tresiba Flextouch U-100] 40 unit SQ DAILY 08/27/18 Review of Systems - Review of Systems Constitutional: reports: Chills, Fever, Malaise. denies: Night Sweats Eyes: reports: No Symptoms HENT: reports: No Symptoms Neck: reports: No Symptoms Cardiovascular: reports: Chest Pain, Shortness of Breath. denies: Edema, Palpitations Respiratory: reports: Cough, Snoring, SOB, SOB on Exertion. denies: Hemoptysis , Wheezing Gastrointestinal: reports: No Symptoms Genitourinary: reports: No Symptoms Breasts: reports: No Symptoms Reported Musculoskeletal: reports: No Symptoms Integumentary: reports: No Symptoms Neurological: reports: No Symptoms Endocrine: reports: No Symptoms Hematology/Lymphatic: reports: No Symptoms Psychiatric: reports: No Symptoms Physical Exam Vital Sings: Vital Signs Temperature 99.1 F 08/28/18 12:59 Pulse Rate 66 08/28/18 12:59 Respiratory Rate 19 08/28/18 12:59 Blood Pressure 162/83 08/28/18 12:59 O2 Sat by Pulse Oximetry (%) 100 08/28/18 12:59 Constitutional: Yes: No Distress, Calm Eyes: Yes: Conjunctiva Clear, EOM Intact HENT: Yes: Atraumatic, Normocephalic Neck: Yes: Supple, Trachea Midline Cardiovascular: Yes: Regular Rate and Rhythm Respiratory: Yes: Cough, Diminished, Rhonchi, SOB, SOB on Exertion, Tachypnea. No: Accessory Muscle Use, Stridor, Wheezes ...Inspection: Yes: WNL ...Clubbing: No Gastrointestinal: Yes: Normal Bowel Sounds, Soft Renal/: Yes: WNL Musculoskeletal: Yes: WNL Extremities: Yes: WNL Edema: No Peripheral Pulses WNL: Yes Integumentary: Yes: WNL Neurological: Yes: WNL, Alert, Oriented ...Motor Strength: WNL Psychiatric: Yes: WNL, Alert, Oriented Labs: CBC, BMP 08/28/18 08:00 08/28/18 08:00 Imaging - Results Chest X-ray: Report Reviewed, Image Reviewed Problem List - Problems (1) Pleuritic chest pain Code(s): R07.81 - PLEURODYNIA (2) Anemia Code(s): D64.9 - ANEMIA, UNSPECIFIED (3) Community acquired pneumonia Code(s): J18.9 - PNEUMONIA, UNSPECIFIED ORGANISM Qualifiers: Laterality: right Lung location: middle lobe of lung Qualified Code(s): J18.1 - Lobar pneumonia, unspecified organism (4) HLD (hyperlipidemia) Code(s): E78.5 - HYPERLIPIDEMIA, UNSPECIFIED (5) HTN (hypertension) Code(s): I10 - ESSENTIAL (PRIMARY) HYPERTENSION (6) Bronchitis Code(s): J40 - BRONCHITIS, NOT SPECIFIED ACUTE OR CHRONIC Assessment/Plan Isolation Check AFB CT chest ABX: ID consult has been called O2 to maintain saturation No indication for systemic steroids at this time Quantiferon Gold No smoking counseled VTE prophylaxis Will need repeat imaging as an outpatient to document resolution of findings Will follow Thank you. Dr Cordon
[2018-08-28] MEDS ORDERED: morphine SULFATE 4 MG/ML VIAL IVPUSH PRN (15:08)
[2018-08-28] MEDS ORDERED: MORPHINE SULFATE 2 MG/ML VIAL IVPUSH PRN (15:08)
[2018-08-28] MEDS: ATORVASTATIN CA 20 MG TABLET (FP) PO SCH (21:19)
[2018-08-28] MEDS: MELATONIN 5 MG TABLETS PO PRN (21:19)
[2018-08-28] MEDS: ACETAMINOPHEN 325 MG TABLET (FP) PO PRN (21:19)
[2018-08-29] MEDS ORDERED: morphine CARPU-JECT 2 MG/1 ML DISP.SYRIN IVPUSH PRN (08:07)
[2018-08-29 08:08] LABS: SERUM IRON SATURATION 7 % (15-55); TOTAL IRON BINDING CAPACITY 197 ug/dL (250-450); UIBC 184 ug/dL (111-343)
[2018-08-29 08:17] LABS: BASO % 0.7 % (0-2.0); EOS % 3.3 % (0-4.5); HEMOGLOBIN 7.8 GM/dl (11.7-16.9); LYMPH % 15.6 % (8-40); MCH 27.9 pg (25.7-33.7); MCHC 31.4 g/dl (32.0-35.9); MEAN CELL VOLUME 88.9 fl (80-96); MEAN PLT VOLUME 8.6 fl (7.5-11.1); MONO % 9.2 % (3.8-10.2); NEUT % 71.2 % (42.8-82.8); PLATELET COUNT 162 K/MM3 (134-434); RBC 2.81 M/mm3 (4.00-5.60); RDW 13.9 % (11.9-15.9); WHITE BLOOD COUNT 5.4 K/mm3 (4.0-10.8)
[2018-08-29] MEDS: SODIUM CHLORIDE 1,000 ML IV SCH (09:00)
[2018-08-29 09:22] LABS: CALCIUM 7.6 mg/dl (8.5-10); CREATININE 3.4 mg/dl (0.55-1.3); POTASSIUM 4.7 mmol/L (3.5-5.1)
--- NOTE | 2018-08-29 09:25 | PN ---
Progress Note (short form) - Note Progress Note: ID CONSULT DICTATED MASS-LIKE R PNEUMONIC INFILTRATE RENAL FAILURE ANEMIA OBTAIN SPUTUM C/S SPUTUM AFB QUANTIFERON HIV TEST RENAL EVALUATION TB ISOLATION EMPIRIC CEFTRIAXONE/ZITHROMAX
[2018-08-29] MEDS: CARVEDILOL 3.125 MG TABLET (FP) PO SCH ×2 (09:32→21:29)
[2018-08-29] MEDS: AZITHROMYCIN IVPB 500 MG/250 ML BAG IVPB SCH (09:32)
[2018-08-29] MEDS: amLODIPine BESYLATE 5 MG TABLET (FP) PO SCH (09:32)
[2018-08-29] MEDS: HEPARIN NA (PORCINE) 5,000 UNITS/ML 1ML VIAL SQ SCH ×2 (09:32→21:29)
[2018-08-29] MEDS: PANTOPRAZOLE 40 MG TABLET (FP) PO SCH (09:33)
[2018-08-29] MEDS: ASPIRIN COATED 81 MG TABLET.EC PO SCH (09:33)
--- NOTE | 2018-08-29 09:33 | PN ---
Physical Exam: SUBJECTIVE: Patient seen and examined at bedside. Used [employer] tape coater [id number]. Feeling better. Denies fever, sweats, chills. +cough OBJECTIVE: Vital Signs Period Temp Pulse Resp BP Sys/Newman Pulse Ox Last 24 Hr 98.8 F-99.6 F 66-80 18-20 133-195/64-93 96-100 GENERAL: The patient is awake, alert, and fully oriented, in no acute distress. LUNGS: Diminished breath sounds, no wheezing HEART: Regular rate and rhythm, S1, S2 ABDOMEN: Soft, nontender, nondistended EXTREMITIES: 2+ pulses, warm, well-perfused, no edema. NEUROLOGICAL: Cranial nerves II through XII grossly intact. Normal speech, moves all extremities freely Laboratory Results - last 24 hr 08/28/18 08/28/18 08/28/18 08:00 08:00 11:49 WBC 6.2 RBC 2.91 L Hgb 8.3 L Hct 25.7 L MCV 88.4 MCH 28.5 MCHC 32.2 RDW 13.6 Plt Count 169 D MPV 8.7 Absolute Neuts (auto) 4.4 Neutrophils % 71.6 Lymphocytes % 17.0 D Monocytes % 8.5 Eosinophils % 1.9 D Basophils % 1.0 Sodium 139 Potassium 4.9 Chloride 110 H Carbon Dioxide 21 Anion Gap 8 BUN 40.0 H Creatinine 3.3 H Est GFR (CKD-EPI)AfAm 22.44 Est GFR (CKD-EPI)NonAf 19.36 POC Glucometer 117 Random Glucose 95 Calcium 7.8 L Iron TIBC Iron Saturation Unsaturated IBC Ferritin Vitamin B12 Serum Folate Ur Random Creatinine 08/28/18 08/28/18 08/28/18 12:09 12:09 12:09 WBC RBC Hgb Hct MCV MCH MCHC RDW Plt Count MPV Absolute Neuts (auto) Neutrophils % Lymphocytes % Monocytes % Eosinophils % Basophils % Sodium Potassium Chloride Carbon Dioxide Anion Gap BUN Creatinine Est GFR (CKD-EPI)AfAm Est GFR (CKD-EPI)NonAf POC Glucometer Random Glucose Calcium Iron 13 L TIBC 197 L Iron Saturation 7 L Unsaturated IBC 184 Ferritin 142.8 Cancelled Vitamin B12 437 Cancelled Serum Folate 31 H Ur Random Creatinine 08/28/18 08/28/18 08/28/18 14:35 16:17 21:26 WBC RBC Hgb Hct MCV MCH MCHC RDW Plt Count MPV Absolute Neuts (auto) Neutrophils % Lymphocytes % Monocytes % Eosinophils % Basophils % Sodium Potassium Chloride Carbon Dioxide Anion Gap BUN Creatinine Est GFR (CKD-EPI)AfAm Est GFR (CKD-EPI)NonAf POC Glucometer 126 173 Random Glucose Calcium Iron TIBC Iron Saturation Unsaturated IBC Ferritin Vitamin B12 Serum Folate Ur Random Creatinine 77.5 08/29/18 08/29/18 08/29/18 06:19 07:04 07:04 WBC 5.4 RBC 2.81 L Hgb 7.8 L Hct 25.0 L MCV 88.9 MCH 27.9 MCHC 31.4 L RDW 13.9 Plt Count 162 MPV 8.6 Absolute Neuts (auto) 3.8 Neutrophils % 71.2 Lymphocytes % 15.6 Monocytes % 9.2 Eosinophils % 3.3 Basophils % 0.7 Sodium 136 Potassium 4.7 Chloride 106 Carbon Dioxide 21 Anion Gap 9 BUN 41.0 H Creatinine 3.4 H Est GFR (CKD-EPI)AfAm 21.65 Est GFR (CKD-EPI)NonAf 18.68 POC Glucometer 95 Random Glucose 101 Calcium 7.6 L Iron TIBC Iron Saturation Unsaturated IBC Ferritin Vitamin B12 Serum Folate Ur Random Creatinine Active Medications Generic Name Dose Route Start Last Admin Trade Name Freq PRN Reason Stop Dose Admin Acetaminophen 650 mg 08/28/18 20:29 08/28/18 21:19 Tylenol - PO 650 mg Q6H PRN Administration PAIN OR FEVER Albuterol/Ipratropium 1 amp 08/27/18 19:26 08/28/18 18:14 Duoneb - NEB 1 amp Q6H PRN Administration SHORTNESS OF BREATH Amlodipine Besylate 5 mg 08/28/18 13:15 08/28/18 13:59 Norvasc - PO 5 mg DAILY [facility] Administration Aspirin 81 mg 08/28/18 10:00 08/28/18 10:14 Ecotrin - PO 81 mg DAILY [facility] Administration Atorvastatin Calcium 20 mg 08/28/18 22:00 08/28/18 21:19 Lipitor - PO 20 mg HS [facility] Administration Carvedilol 3.125 mg 08/27/18 21:45 08/28/18 21:19 Coreg - PO 3.125 mg BID [facility] Administration Guaifenesin 10 ml 08/27/18 19:28 06/23/19 23:29 Robitussin Dm - PO 10 ml Q6H PRN Administration COUGH Heparin Sodium (Porcine) 5,000 unit 08/27/18 22:00 08/28/18 21:20 Heparin - SQ 5,000 unit BID [facility] Administration Azithromycin 500 mg in 250 mls @ 250 mls/hr 08/28/18 10:00 08/28/18 10:15 Zithromax 500mg Ivpb (Pre-Docked) IVPB 250 mls/hr DAILY [facility] Administration Ceftriaxone Sodium 50 mls @ 100 mls/hr 08/28/18 10:00 08/28/18 10:14 Ceftriaxone 1 Gm-D5w Bag IVPB 100 mls/hr DAILY [facility] Administration Protocol Sodium Chloride 1,000 mls @ 75 mls/hr 08/28/18 09:00 08/28/18 10:13 Normal Saline - IV 75 mls/hr ASDIR [facility] Administration Insulin Aspart 1 vial 08/27/18 22:00 08/28/18 21:31 Novolog Vial Sliding Scale - SQ 2 units ACHS [facility] Administration Protocol Insulin Detemir 20 units 08/28/18 10:00 08/28/18 10:15 Levemir Vial SQ 20 units DAILY@0700 [facility] Administration Melatonin 5 mg 08/28/18 20:29 08/28/18 21:19 Melatonin PO 5 mg HS PRN Administration INSOMNIA Morphine Sulfate 4 mg 08/28/18 15:08 08/28/18 16:20 Morphine Sulfate IVPUSH 4 mg Q4H PRN Administration PAIN LEVEL 6-10 Morphine Sulfate 2 mg 08/29/18 08:07 Morphine Injection - IVPUSH Q4H PRN PAIN LEVEL 1-5 Pantoprazole Sodium 40 mg 08/28/18 10:00 08/28/18 10:14 Protonix - PO 40 mg DAILY [facility] Administration PCP: Dr. Jace Tatum Nephrology: Dr. Aguiar ASSESSMENT/PLAN 58 year-old male with a PMH significant for HTN, HLD, IDDM, CKD, and anemia. Admitted for CAP, MARIANO. CAP Right lung mass --CXR: rounded mass or pseudotumor by the right horizontal fissure; CT done pending dictation --afebrile, no leukocytosis --continue ceftriaxone, azithromycin --continue duonebs --Legionella negative, flu negative --ID following r/o TB --sputum culture, AFB, Quantiferon ordered --HIV ordered --TB isolation Acute on chronic kidney disease --Cr 3.1 on admission, 3.4 today; baseline unknown (2.5 in 08/2016) --follows with Dr. Aguiar, consult placed Hypertension --continue carvedilol, amlodipine; hold losartan due to MARIANO Hyperlipidemia --continue atorvastatin IDDM --Novolog sliding scale coverage --Levemir 20U FEN Fluids: NS@75mL/hr Electrolytes: replete as indicated Nutrition: diabetic, low sodium DVT prophylaxis: subq heparin Dispo: continues to require inpatient care. Full code. Visit type - Emergency Visit Emergency Visit: Yes ED Registration Date: 08/27/18 Care time: The patient presented to the Emergency Department on the above date and was hospitalized for further evaluation of their emergent condition. - New Patient This patient is new to me today: Yes Date on this admission: 08/29/18 - Critical Care Critical Care patient: No
[2018-08-29] MEDS: INSULIN (LEVEMIR) 100 UNITS/ML UNITS SQ SCH (11:00)
[2018-08-29] MEDS: CEFTRIAXONE 1 G/50 ML PREMIX 50 ML IVPB SCH (11:00)
[2018-08-29] MEDS: guaiFENesin/D-METHORPHAN HB 10 ML UNIT-DOSE CUPS PO PRN ×2 (15:00→21:38)
[2018-08-29] MEDS: INSULIN SLIDING SCALE (NOVOLOG) 1 VIAL SQ SCH ×4 (15:28→21:29)
--- NOTE | 2018-08-29 16:58 | CONSULT ---
Consult Consult Specialty:: Nephrology Reason for Consultation:: MARIANO - History of Present Illness Chief Complaint: cough and SOB History of Present Illness: Pt is a 58 year old male with pmhx of CKD, HTN, DM, anemia, and HLD who presents to the ER complaining of cough, fever and shortness of breath. He says that he has had the cough for a few days. He was found to have elevated creatinine and I was called to evaluate him. He does not know his baseline guide visitor. He denies dysuria or hematuria. He denies chest pain. He was found to have a lung lesion and is being transferred to [facility]. - History Source History Provided By: Patient, Medical Record - Past Medical History Cardio/Vascular: Yes: HTN, Hyperlipdemia Pulmonary: Yes: Pneumonia, Other (prolonged 2 month hospitalization ) Renal/: Yes: Renal Inusuff Endocrine: Yes: Diabetes Mellitus - Alcohol/Substance Use Hx Alcohol Use: No - Smoking History Smoking history: Never smoked Have you smoked in the past 12 months: No Home Medications - Allergies Allergies/Adverse Reactions: Allergies Allergy/AdvReac Type Severity Reaction Status Date / Time No Known Allergies Allergy Verified 08/27/18 16:04 - Home Medications Home Medications: Ambulatory Orders Losartan Potassium 25 mg PO DAILY 08/20/16 Atorvastatin Ca [Lipitor] 20 mg PO HS 08/27/18 Carvedilol 3.125 mg PO DAILY 08/27/18 Insulin Degludec [Tresiba Flextouch U-100] 40 unit SQ DAILY 08/27/18 Family Disease History - Family Disease History Family History: Denies Review of Systems - Review of Systems Constitutional: reports: Fever, Malaise Eyes: reports: No Symptoms HENT: reports: No Symptoms Cardiovascular: reports: Shortness of Breath. denies: Chest Pain, Edema, Palpitations Respiratory: reports: Cough, SOB, SOB on Exertion Gastrointestinal: reports: No Symptoms Genitourinary: reports: No Symptoms Musculoskeletal: reports: No Symptoms Integumentary: reports: No Symptoms Neurological: reports: No Symptoms Endocrine: reports: No Symptoms Hematology/Lymphatic: reports: No Symptoms Psychiatric: reports: No Symptoms Physical Exam Vital Signs: Vital Signs Temperature 98.8 F 08/29/18 07:08 Pulse Rate 66 08/29/18 07:08 Respiratory Rate 19 08/29/18 07:08 Blood Pressure 163/79 08/29/18 07:08 O2 Sat by Pulse Oximetry (%) 98 08/29/18 08:06 Constitutional: Yes: Calm Eyes: Yes: Conjunctiva Clear HENT: Yes: Atraumatic Neck: Yes: Supple Cardiovascular: Yes: S1, S2 Respiratory: Yes: CTA Bilaterally Gastrointestinal: Yes: Normal Bowel Sounds, Soft Renal/: Yes: WNL Musculoskeletal: Yes: WNL Edema: No Neurological: Yes: Oriented Psychiatric: Yes: Oriented Labs: CBC, BMP 08/29/18 07:04 08/29/18 07:04 Laboratory Tests 08/20/16 08/27/18 08/27/18 20:12 16:47 17:45 Hgb Creatinine 2.5 H 3.1 H Urine Protein Urine Blood Influenza A (Rapid) Negative Influenza B (Rapid) Negative TB Test (QFT) 08/27/18 08/28/18 08/28/18 22:15 08:00 08:00 Hgb 8.3 L Creatinine 3.3 H Urine Protein 3+ H Urine Blood 2+ H Influenza A (Rapid) Influenza B (Rapid) TB Test (QFT) 08/28/18 08/29/18 08/29/18 12:50 07:04 07:04 Hgb 7.8 L Creatinine 3.4 H Urine Protein Urine Blood Influenza A (Rapid) Influenza B (Rapid) TB Test (QFT) Pending Imaging - Results Ultrasound: Report Reviewed Problem List - Problems (1) CKD (chronic kidney disease) Code(s): N18.9 - CHRONIC KIDNEY DISEASE, UNSPECIFIED (2) Anemia Code(s): D64.9 - ANEMIA, UNSPECIFIED (3) Community acquired pneumonia Code(s): J18.9 - PNEUMONIA, UNSPECIFIED ORGANISM Qualifiers: Laterality: right Lung location: middle lobe of lung Qualified Code(s): J18.1 - Lobar pneumonia, unspecified organism (4) HTN (hypertension) Code(s): I10 - ESSENTIAL (PRIMARY) HYPERTENSION Assessment/Plan Current Medications Generic Name Dose Route Start Last Admin Trade Name Freq PRN Reason Stop Dose Admin Acetaminophen 650 mg 08/28/18 20:29 08/28/18 21:19 Tylenol - PO 650 mg Q6H PRN Administration PAIN OR FEVER Albuterol/Ipratropium 1 amp 08/27/18 19:26 08/28/18 18:14 Duoneb - NEB 1 amp Q6H PRN Administration SHORTNESS OF BREATH Amlodipine Besylate 5 mg 08/28/18 13:15 08/29/18 09:32 Norvasc - PO 5 mg DAILY [facility] Administration Aspirin 81 mg 08/28/18 10:00 08/29/18 09:33 Ecotrin - PO 81 mg DAILY [facility] Administration Atorvastatin Calcium 20 mg 08/28/18 22:00 08/28/18 21:19 Lipitor - PO 20 mg HS [facility] Administration Carvedilol 3.125 mg 08/27/18 21:45 08/29/18 09:32 Coreg - PO 3.125 mg BID [facility] Administration Guaifenesin 10 ml 08/27/18 19:28 08/29/18 15:00 Robitussin Dm - PO 10 ml Q6H PRN Administration COUGH Heparin Sodium (Porcine) 5,000 unit 08/27/18 22:00 08/29/18 09:32 Heparin - SQ 5,000 unit BID [facility] Administration Azithromycin 500 mg in 250 mls @ 250 mls/hr 08/28/18 10:00 08/29/18 09:32 Zithromax 500mg Ivpb (Pre-Docked) IVPB 250 mls/hr DAILY [facility] Administration Ceftriaxone Sodium 50 mls @ 100 mls/hr 08/28/18 10:00 08/29/18 11:00 Ceftriaxone 1 Gm-D5w Bag IVPB 100 mls/hr DAILY [facility] Administration Protocol Sodium Chloride 1,000 mls @ 75 mls/hr 08/28/18 09:00 08/29/18 09:00 Normal Saline - IV 75 mls/hr ASDIR [facility] Administration Insulin Aspart 1 vial 08/27/18 22:00 08/29/18 16:11 Novolog Vial Sliding Scale - SQ Not Given ACHS [facility] Protocol Insulin Detemir 20 units 08/28/18 10:00 08/29/18 11:00 Levemir Vial SQ 20 units DAILY@0700 [facility] Administration Melatonin 5 mg 08/28/18 20:29 08/28/18 21:19 Melatonin PO 5 mg HS PRN Administration INSOMNIA Morphine Sulfate 2 mg 08/29/18 08:07 Morphine Injection - IVPUSH Q4H PRN PAIN LEVEL 1-5 Pantoprazole Sodium 40 mg 08/28/18 10:00 08/29/18 09:33 Protonix - PO 40 mg DAILY [facility] Administration Impression 1. CKD with unclear baseline 2. HTN 3. DM 4. HLD 5. possible lung mass Plan - cont to monitor renal function - renal ultrasound reviewed - repeat labs in am - can stop fluids for now - monitor volume status - will call for outpt records to evaluate baseline - follow ct chest results - check ua with abbe
--- NOTE | 2018-08-29 19:26 | CONS ---
INFECTIOUS DISEASE CONSULTATION DATE OF CONSULTATION: DATE OF DICTATION: 08/29/2018 The patient is a 58-year-old male evaluated for pneumonia. He was admitted to the hospital on August 27, 2018, with complaints of cough and fever. He had developed a cough approximately 1 day prior to admission, productive of yellowish sputum, associated with shortness of breath and fever to 103. He presented to the emergency room where a chest x-ray was performed and showed a round mass-like consolidation in the right lung field. He was empirically treated with Zithromax and ceftriaxone. The patient reports cough productive of yellowish sputum. He denies any hemoptysis. No reports of chest pain. He denies any weight loss. The patient is originally from the [facility], has been residing in the . He denies any recent travel. No known ill contacts. He is a nonsmoker. His HIV status is not known. PAST MEDICAL HISTORY: Positive for hypertension, diabetes, hyperlipidemia, chronic renal insufficiency. PAST SURGICAL HISTORY: Status post appendectomy. ALLERGIES: No known allergies. MEDICATIONS: Losartan, Lipitor, carvedilol, insulin. SOCIAL HISTORY: Originally from the [place]. 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 He is a nonsmoker, nondrinker. LABORATORY DATA: White count 5.4, hematocrit 25.1, platelets 162. BUN 40, creatinine 3.3. Liver enzymes normal. Urinalysis: White cells 0-2, red cells 5-10. Influenza swab negative. PHYSICAL EXAMINATION: General: He is awake and alert. He is not acutely toxic appearing. Vital Signs: Temperature 99.8; blood pressure 163/79; pulse 66, regular; respirations 18 per minute. HEENT: Sclerae anicteric. Heart: Sounds S1, S2. Lungs: Scattered rhonchi bilaterally. Abdomen: Soft. No tenderness elicited. No mass, rebound, or rigidity. Extremities: Negative for edema. IMPRESSION: 1. Mass-like, right-sided pneumonic infiltrate. 2. Renal failure. 3. Anemia. Etiology of lung consolidation/mass not clear. Would obtain sputum culture, urine legionella, and pneumococcal antigens. Obtain sputum AFB and PCR. Obtain QuantiFERON, HIV test, blood cultures. Empiric antibiotic coverage with Zithromax and ceftriaxone. AFB precautions pending workup. Pulmonary and renal evaluation. Requires workup for possible vasculitis including Goodpasture's and Carmen's involving abnormal chest x-ray and renal function. Will follow. Thank you for the kind referral. JUAN STEIN M.D. [facility]IAN/[id number]
[2018-08-29] MEDS: ALBUTEROL SO4 2.5/IPRATROPIUM 0.5 INH SOL 3 ML VIAL.NEB. NEB PRN (21:00)
[2018-08-29 21:09] LABS: RATIO URIN PROTEIN/URIN CREAT 6.26 MG/DL
[2018-08-29] MEDS: ATORVASTATIN CA 20 MG TABLET (FP) PO SCH (21:29)
[2018-08-29] MEDS ORDERED: MORPHINE SULFATE 2 MG/ML VIAL IVPUSH PRN (21:36)
--- NOTE | 2018-08-29 22:55 | HOSP ---
Subjective - Review of Symptoms Events since last encounter: Hospitalist Encounter Patient was transferred from [place] [facility] [place] Negative Pressure room r/o TB secondary to ?right lung mass Patient is awake, alert and oriented, family all at bedside The daughter translated, patient is Romansh speaking. Per the daughter the patient is still SOB worse on exertion, coughing and has abdominal pain when he coughs. Pulmonary: Yes: Dyspnea, Cough Gastrointestinal: Yes: Abdominal Pain Physical Examination Vital Signs: Vital Signs Temperature 98.4 F 08/29/18 19:00 Pulse Rate 80 08/29/18 19:00 Respiratory Rate 20 08/29/18 19:00 Blood Pressure 170/100 08/29/18 19:00 O2 Sat by Pulse Oximetry (%) 98 08/29/18 08:06 Constitutional: Yes: Mild Distress, Obese Eyes: Yes: WNL, Conjunctiva Clear, EOM Intact HENT: Yes: WNL, Atraumatic, Normocephalic Neck: Yes: WNL, Supple, Trachea Midline Cardiovascular: Yes: WNL, Regular Rate and Rhythm, S1, S2 Respiratory: Yes: Diminished, On Nasal O2, Rhonchi, SOB, SOB on Exertion Gastrointestinal: Yes: WNL, Normal Bowel Sounds, Soft, Abdomen, Obese Peripheral Pulses WNL: Yes Neurological: Yes: WNL, Alert, Oriented ...Motor Strength: WNL Psychiatric: Yes: WNL, Alert, Oriented Labs: CBC, BMP 08/29/18 07:04 08/29/18 07:04 Hospitalist Encounter Assessment: This is a 58 y/o man with a PMH significant for HTN, HLD, IDDM, CKD, and anemia. Admitted for CAP, MARIANO. Outcome: Continue Isolation Precautions- Airborne Continue with current regimen ID following Pulm following Continue to monitor
[2018-08-29] MEDS: MELATONIN 5 MG TABLETS PO PRN (23:16)
[2018-08-30] MEDS: ACETAMINOPHEN 325 MG TABLET (FP) PO PRN ×3 (01:56→20:35)
[2018-08-30] MEDS: INSULIN (LEVEMIR) 100 UNITS/ML UNITS SQ SCH (06:53)
[2018-08-30] MEDS: INSULIN SLIDING SCALE (NOVOLOG) 1 VIAL SQ SCH ×4 (06:54→22:43)
--- NOTE | 2018-08-30 08:07 | PN ---
Progress Note, Physician Chief Complaint: shortness of breath History of Present Illness: This is a 58 y/o man with a PMHx of HTN, DM, Renal Insufficiency, Anemia. Who presents to the ED with his family for SOB, fever, productive yellow cough, elevated BP and BS. The patient is Malawian speaking and the daughter translated. Per the daughter the patient had subjective fevers of 103 at home yesterday and he was having difficulty breathing and generalized bodyaches. Per the daughter patient was suppose to have a procedure for a "artery blockage" but it was cancelled due to his kidney function. Patient missed his home meds today due to feeling ill. Patient denies dizziness, CP, palpitations, AP, N/V/D , constipation, dysuria. Patient had recent travel [place] 2 months ago. - Current Medication List Current Medications: Active Medications Acetaminophen (Tylenol -) 650 mg PO Q6H PRN PRN Reason: PAIN OR FEVER Last Admin: 08/30/18 01:56 Dose: 650 mg Albuterol/Ipratropium (Duoneb -) 1 amp NEB Q6H PRN PRN Reason: SHORTNESS OF BREATH Last Admin: 08/29/18 21:00 Dose: 1 amp Amlodipine Besylate (Norvasc -) 5 mg PO DAILY [facility] Last Admin: 08/29/18 09:32 Dose: 5 mg Aspirin (Ecotrin -) 81 mg PO DAILY [facility] Last Admin: 08/29/18 09:33 Dose: 81 mg Atorvastatin Calcium (Lipitor -) 20 mg PO HS [facility] Last Admin: 08/29/18 21:29 Dose: 20 mg Carvedilol (Coreg -) 3.125 mg PO BID [facility] Last Admin: 08/29/18 21:29 Dose: 3.125 mg Guaifenesin (Robitussin Dm -) 10 ml PO Q6H PRN PRN Reason: COUGH Last Admin: 08/29/18 21:38 Dose: 10 ml Heparin Sodium (Porcine) (Heparin -) 5,000 unit SQ BID [facility] Last Admin: 08/29/18 21:29 Dose: 5,000 unit Azithromycin (Zithromax 500mg Ivpb (Pre-Docked)) 500 mg in 250 mls @ 250 mls/ hr IVPB DAILY [facility] Last Admin: 08/29/18 09:32 Dose: 250 mls/hr Ceftriaxone Sodium (Ceftriaxone 1 Gm-D5w Bag) 50 mls @ 100 mls/hr IVPB DAILY [facility]; Protocol Last Admin: 08/29/18 11:00 Dose: 100 mls/hr Insulin Aspart (Novolog Vial Sliding Scale -) 1 vial SQ ACHS [facility]; Protocol Last Admin: 08/30/18 06:54 Dose: Not Given Insulin Detemir (Levemir Vial) 20 units SQ DAILY@0700 [facility] Last Admin: 08/30/18 06:53 Dose: 20 units Melatonin (Melatonin) 5 mg PO HS PRN PRN Reason: INSOMNIA Last Admin: 08/29/18 23:16 Dose: 5 mg Morphine Sulfate (Morphine Sulfate) 2 mg IVPUSH Q4H PRN PRN Reason: PAIN LEVEL 1-5 Pantoprazole Sodium (Protonix -) 40 mg PO DAILY [facility] Last Admin: 08/29/18 09:33 Dose: 40 mg - Objective Vital Signs: Vital Signs Temperature 98.9 F 08/30/18 06:00 Pulse Rate 80 08/30/18 06:00 Respiratory Rate 20 08/30/18 06:00 Blood Pressure 158/84 08/30/18 06:00 O2 Sat by Pulse Oximetry (%) 96 08/29/18 21:00 Constitutional: Yes: Well Nourished, No Distress, Calm Eyes: Yes: WNL, Conjunctiva Clear, EOM Intact HENT: Yes: WNL, Atraumatic, Normocephalic Neck: Yes: WNL, Supple, Trachea Midline Cardiovascular: Yes: WNL, Regular Rate and Rhythm Respiratory: Yes: WNL, Regular, CTA Bilaterally (at bases), Diminished Gastrointestinal: Yes: WNL, Normal Bowel Sounds, Soft ...Rectal Exam: Yes: Deferred Genitourinary: Yes: WNL Musculoskeletal: Yes: WNL Extremities: Yes: WNL Edema: No Peripheral Pulses WNL: Yes Integumentary: Yes: WNL Neurological: Yes: WNL, Alert, Oriented, Other (marshallese speaking, cyracom translation) ...Motor Strength: WNL Psychiatric: Yes: WNL, Alert, Oriented Labs: CBC, BMP 08/29/18 07:04 08/29/18 07:04 - ....Imaging Chest X-ray: Report Reviewed (BL pleural effusion, RML opacity), Image Reviewed Ultrasound: Report Reviewed (Renal:no acute pathology) Problem List - Problems (1) Community acquired pneumonia Assessment/Plan: continue azithromycin and ceftriaxone -cultures as follows: Bcx NGTD, Sputum for AFB pending, legionalla negative - Isolation precautions with HEPA filter in room -Quantiferon Gold pending -continue bronchdilators -supplemental O2 to mainatin sat >92 % Code(s): J18.9 - PNEUMONIA, UNSPECIFIED ORGANISM Qualifiers: Laterality: right Lung location: middle lobe of lung Qualified Code(s): J18.1 - Lobar pneumonia, unspecified organism (2) HLD (hyperlipidemia) Assessment/Plan: continue home nagel of atrovastatin low cholesterol/low fat diet Code(s): E78.5 - HYPERLIPIDEMIA, UNSPECIFIED (3) HTN (hypertension) Assessment/Plan: continue home dose of carvedilol Code(s): I10 - ESSENTIAL (PRIMARY) HYPERTENSION (4) [id number]-[id number] kidney injury Assessment/Plan: Cr 3.4 now,unclear to baseline -cont to monitor renal function - renal ultrasound reviewed by Dr Martin and no acute pathology seen -urine lytes: Una95, Ucr77.5, FeNa 2.95%, suggestive or pre-renal state given any absence of pathology on renal US -IVF stopped, continue to monitor volume status Code(s): N17.9 - ACUTE KIDNEY FAILURE, UNSPECIFIED; N18.9 - CHRONIC KIDNEY DISEASE, UNSPECIFIED (5) Pleuritic chest pain Assessment/Plan: MSO4/tylenol PRN for pain encourage patient to use a pillow to splint when coughing Code(s): R07.81 - PLEURODYNIA (6) Prophylactic measure Assessment/Plan: FEN low fat/cholesterol diabetic diet no need for IVF at this time daily CMP DVT Proph heparin 5000 u bid DIspo mainatin as in patient full code discharge planning Code(s): Z29.9 - ENCOUNTER FOR PROPHYLACTIC MEASURES, UNSPECIFIED (7) Diabetes Assessment/Plan: BGM AC/qhs novolog sliding scale continue am levemir Code(s): E11.9 - TYPE 2 DIABETES MELLITUS WITHOUT COMPLICATIONS (8) Lung mass Assessment/Plan: BL pleural effusion, RML opacity SPutum cx, QUANTIFERON & HIV pending Code(s): R91.8 - OTHER NONSPECIFIC ABNORMAL FINDING OF LUNG FIELD Impression/Plan Impression/Plan: Isolation Check AFB ABX per ID O2 to maintain saturation Follow Quantiferon Gold No smoking counseled VTE prophylaxis May need cardiac workup prior to any anticipated procedures (ie need for Bronch / biopsy) Visit type - Emergency Visit Emergency Visit: Yes ED Registration Date: 08/27/18 Care time: The patient presented to the Emergency Department on the above date and was hospitalized for further evaluation of their emergent condition. - New Patient This patient is new to me today: Yes Date on this admission: 08/30/18 - Critical Care Critical Care patient: No - Discharge Referral Referred to [facility] No
[2018-08-30 08:40] LABS: BASO % 0.4 % (0-2.0); EOS % 2.2 % (0-4.5); HEMATOCRIT 24.1 % (35.4-49); LYMPH % 16.2 % (8-40); MCH 29.2 pg (25.7-33.7); MCHC 33.3 g/dl (32.0-35.9); MEAN CELL VOLUME 87.8 fl (80-96); MEAN PLT VOLUME 9.1 fl (7.5-11.1); MONO % 8.7 % (3.8-10.2); NEUT % 72.5 % (42.8-82.8); RBC 2.75 M/mm3 (4.00-5.60); RDW 14.1 % (11.9-15.9); WHITE BLOOD COUNT 5.3 K/mm3 (4.0-10.0)
[2018-08-30 08:44] LABS: ALBUMIN 2.5 g/dl (3.4-5.0); BILIRUBIN,TOTAL 0.4 mg/dL (0.2-1); CALCIUM 7.8 mg/dL (8.5-10.1); CREATININE 3.4 mg/dL (0.55-1.3); MAGNESIUM 2.2 mg/dL (1.8-2.4); POTASSIUM 4.4 mmol/L (3.5-5.1)
[2018-08-30 09:27] LABS: PLATELET COUNT 162 K/MM3 (134-434)
--- NOTE | 2018-08-30 10:36 | PN ---
Progress Note (short form) - Note Progress Note: Reports pleuritic type CP when coughing. No hemoptysis. Still with SOB and CLEMENTE. Intake & Output 08/27/18 08/28/18 08/29/18 08/30/18 23:59 23:59 23:59 23:59 Intake Total 1000 750 825 300 Output Total 300 Balance 1000 450 825 300 Weight 223 lb 3 oz 221 lb 7 oz 224 lb 6 oz 229 lb 1.6 oz Last Vital Signs Temp Pulse Resp BP Pulse Ox 98.9 F 80 20 158/84 96 08/30/18 06:00 08/30/18 06:00 08/30/18 06:00 08/30/18 06:00 08/29/18 21:00 Active Medications Acetaminophen (Tylenol -) 650 mg PO Q6H PRN PRN Reason: PAIN OR FEVER Last Admin: 08/30/18 01:56 Dose: 650 mg Albuterol/Ipratropium (Duoneb -) 1 amp NEB Q6H PRN PRN Reason: SHORTNESS OF BREATH Last Admin: 08/29/18 21:00 Dose: 1 amp Amlodipine Besylate (Norvasc -) 5 mg PO DAILY [facility] Last Admin: 08/29/18 09:32 Dose: 5 mg Aspirin (Ecotrin -) 81 mg PO DAILY [facility] Last Admin: 08/29/18 09:33 Dose: 81 mg Atorvastatin Calcium (Lipitor -) 20 mg PO HS [facility] Last Admin: 08/29/18 21:29 Dose: 20 mg Carvedilol (Coreg -) 3.125 mg PO BID [facility] Last Admin: 08/29/18 21:29 Dose: 3.125 mg Guaifenesin (Robitussin Dm -) 10 ml PO Q6H PRN PRN Reason: COUGH Last Admin: 08/29/18 21:38 Dose: 10 ml Heparin Sodium (Porcine) (Heparin -) 5,000 unit SQ BID [facility] Last Admin: 08/29/18 21:29 Dose: 5,000 unit Azithromycin (Zithromax 500mg Ivpb (Pre-Docked)) 500 mg in 250 mls @ 250 mls/ hr IVPB DAILY [facility] Last Admin: 08/29/18 09:32 Dose: 250 mls/hr Ceftriaxone Sodium (Ceftriaxone 1 Gm-D5w Bag) 50 mls @ 100 mls/hr IVPB DAILY [facility]; Protocol Last Admin: 08/29/18 11:00 Dose: 100 mls/hr Insulin Aspart (Novolog Vial Sliding Scale -) 1 vial SQ ACHS [facility]; Protocol Last Admin: 08/30/18 06:54 Dose: Not Given Insulin Detemir (Levemir Vial) 20 units SQ DAILY@0700 [facility] Last Admin: 08/30/18 06:53 Dose: 20 units Melatonin (Melatonin) 5 mg PO HS PRN PRN Reason: INSOMNIA Last Admin: 08/29/18 23:16 Dose: 5 mg Morphine Sulfate (Morphine Sulfate) 2 mg IVPUSH Q4H PRN PRN Reason: PAIN LEVEL 1-5 Pantoprazole Sodium (Protonix -) 40 mg PO DAILY [facility] Last Admin: 08/29/18 09:33 Dose: 40 mg Constitutional: Yes: Awake and alert, No Distress Eyes: Yes: Conjunctiva Clear, EOM Intact HENT: Yes: Atraumatic, Normocephalic Neck: Yes: Supple, Trachea Midline Cardiovascular: Yes: Regular Rate and Rhythm Respiratory: Yes: Cough, Diminished, Rhonchi, SOB, SOB on Exertion, Tachypnea. No: Accessory Muscle Use, Stridor, Wheezes ...Inspection: Yes: WNL ...Clubbing: No Gastrointestinal: Yes: Normal Bowel Sounds, Soft Renal/: Yes: WNL Musculoskeletal: Yes: WNL Extremities: Yes: WNL Edema: No Peripheral Pulses WNL: Yes Integumentary: Yes: WNL Neurological: Yes: WNL, Alert, Oriented ...Motor Strength: WNL Psychiatric: Yes: WNL, Alert, Oriented Labs: Laboratory Results - last 24 hr 08/29/18 08/29/18 08/29/18 15:41 17:30 17:30 WBC RBC Hgb Hct MCV MCH MCHC RDW Plt Count MPV Absolute Neuts (auto) Neutrophils % Lymphocytes % Monocytes % Eosinophils % Basophils % Nucleated RBC % Sodium Potassium Chloride Carbon Dioxide Anion Gap BUN Creatinine Est GFR (CKD-EPI)AfAm Est GFR (CKD-EPI)NonAf POC Glucometer 124 Random Glucose Calcium Magnesium Total Bilirubin AST ALT Alkaline Phosphatase Total Protein Albumin Urine Color Yellow Urine Appearance Clear Urine pH 5.0 Urine Protein 3+ H Urine Glucose (UA) Negative Urine Ketones Negative Urine Blood 2+ H Urine Nitrite Negative Urine Bilirubin Negative Urine Urobilinogen 0.2 Ur Leukocyte Esterase Negative Urine RBC 2-5 Urine WBC 0-2 Ur Random Creatinine U Random Total Protein Ur Random Sodium 95 Ur Random Potassium 17.0 L Ur Random Chloride 93 L Urine Creatinine Protein/Creatinin Ratio 08/29/18 08/29/18 08/29/18 17:30 17:30 21:27 WBC RBC Hgb Hct MCV MCH MCHC RDW Plt Count MPV Absolute Neuts (auto) Neutrophils % Lymphocytes % Monocytes % Eosinophils % Basophils % Nucleated RBC % Sodium Potassium Chloride Carbon Dioxide Anion Gap BUN Creatinine Est GFR (CKD-EPI)AfAm Est GFR (CKD-EPI)NonAf POC Glucometer 105 Random Glucose Calcium Magnesium Total Bilirubin AST ALT Alkaline Phosphatase Total Protein Albumin Urine Color Urine Appearance Urine pH Urine Protein Urine Glucose (UA) Urine Ketones Urine Blood Urine Nitrite Urine Bilirubin Urine Urobilinogen Ur Leukocyte Esterase Urine RBC Urine WBC Ur Random Creatinine 55.2 U Random Total Protein 319.3 H Ur Random Sodium Ur Random Potassium Ur Random Chloride Urine Creatinine 51.0 Protein/Creatinin Ratio 6.260 08/30/18 08/30/18 08/30/18 06:18 07:19 07:19 WBC 5.3 RBC 2.75 L Hgb 8.0 L Hct 24.1 L D MCV 87.8 MCH 29.2 MCHC 33.3 RDW 14.1 D Plt Count 162 D MPV 9.1 D Absolute Neuts (auto) 3.8 Neutrophils % 72.5 D Lymphocytes % 16.2 D Monocytes % 8.7 Eosinophils % 2.2 Basophils % 0.4 Nucleated RBC % 0 Sodium 141 Potassium 4.4 Chloride 113 H Carbon Dioxide 20 L Anion Gap 8 BUN 38.0 H Creatinine 3.4 H Est GFR (CKD-EPI)AfAm 21.65 Est GFR (CKD-EPI)NonAf 18.68 POC Glucometer 126 Random Glucose 120 H Calcium 7.8 L Magnesium 2.2 Total Bilirubin 0.4 AST 17 ALT 17 Alkaline Phosphatase 54 Total Protein 6.0 L Albumin 2.5 L Urine Color Urine Appearance Urine pH Urine Protein Urine Glucose (UA) Urine Ketones Urine Blood Urine Nitrite Urine Bilirubin Urine Urobilinogen Ur Leukocyte Esterase Urine RBC Urine WBC Ur Random Creatinine U Random Total Protein Ur Random Sodium Ur Random Potassium Ur Random Chloride Urine Creatinine Protein/Creatinin Ratio Problem List - Problems (1) Pleuritic chest pain Code(s): R07.81 - PLEURODYNIA (2) Anemia Code(s): D64.9 - ANEMIA, UNSPECIFIED (3) Community acquired pneumonia Code(s): J18.9 - PNEUMONIA, UNSPECIFIED ORGANISM Qualifiers: Laterality: right Lung location: middle lobe of lung Qualified Code(s): J18.1 - Lobar pneumonia, unspecified organism (4) HLD (hyperlipidemia) Code(s): E78.5 - HYPERLIPIDEMIA, UNSPECIFIED (5) HTN (hypertension) Code(s): I10 - ESSENTIAL (PRIMARY) HYPERTENSION (6) Bronchitis Code(s): J40 - BRONCHITIS, NOT SPECIFIED ACUTE OR CHRONIC Assessment/Plan Isolation Check AFB ABX per ID O2 to maintain saturation Follow Quantiferon Gold No smoking counseled VTE prophylaxis May need cardiac workup prior to any anticipated procedures (ie need for Bronch / biopsy) Dr Cordon Problem List - Problems (1) Pleuritic chest pain Code(s): R07.81 - PLEURODYNIA (2) Anemia Code(s): D64.9 - ANEMIA, UNSPECIFIED (3) Community acquired pneumonia Code(s): J18.9 - PNEUMONIA, UNSPECIFIED ORGANISM Qualifiers: Laterality: right Lung location: middle lobe of lung Qualified Code(s): J18.1 - Lobar pneumonia, unspecified organism (4) HLD (hyperlipidemia) Code(s): E78.5 - HYPERLIPIDEMIA, UNSPECIFIED (5) HTN (hypertension) Code(s): I10 - ESSENTIAL (PRIMARY) HYPERTENSION (6) Bronchitis Code(s): J40 - BRONCHITIS, NOT SPECIFIED ACUTE OR CHRONIC
[2018-08-30] MEDS: ALBUTEROL SO4 0.083% IH SOL 2.5 MG/3 ML VIAL.NEB. NEB PRN (11:15)
[2018-08-30] MEDS: guaiFENesin/D-METHORPHAN HB 10 ML UNIT-DOSE CUPS PO PRN ×2 (11:26→22:34)
[2018-08-30] MEDS: ASPIRIN COATED 81 MG TABLET.EC PO SCH (11:27)
[2018-08-30] MEDS: CARVEDILOL 3.125 MG TABLET (FP) PO SCH ×2 (11:27→22:34)
[2018-08-30] MEDS: amLODIPine BESYLATE 5 MG TABLET (FP) PO SCH (11:28)
[2018-08-30] MEDS: HEPARIN NA (PORCINE) 5,000 UNITS/ML 1ML VIAL SQ SCH ×2 (11:28→22:34)
[2018-08-30] MEDS: AZITHROMYCIN IVPB 500 MG/250 ML BAG IVPB SCH (11:30)
[2018-08-30] MEDS: PANTOPRAZOLE 40 MG TABLET (FP) PO SCH (11:30)
[2018-08-30] MEDS ORDERED: CEFTRIAXONE 1 GM in DEXTROSE 5%-WATER - 50 ML IVPB SCH (13:19)
[2018-08-30] MEDS ORDERED: DEXTROSE 5%-WATER - 50 ML IVPB ONE (14:13)
[2018-08-30] MEDS ORDERED: cefTRIAXone SODIUM 1 GM VIAL ONE (14:13)
[2018-08-30] MEDS: CEFTRIAXONE 1 GM in DEXTROSE 5%-WATER - 50 ML IVPB SCH (14:17)
[2018-08-30] MEDS: CEFTRIAXONE 1 G/50 ML PREMIX 50 ML IVPB SCH (14:30)
[2018-08-30] MEDS: ALBUTEROL SO4 2.5/IPRATROPIUM 0.5 INH SOL 3 ML VIAL.NEB. NEB SCH ×2 (14:50→21:10)
--- NOTE | 2018-08-30 19:03 | PN ---
Progress Note, Physician History of Present Illness: Pt seen and examined at bedside. He is awake and alert. He denies shortness of breath. - Current Medication List Current Medications: Active Medications Acetaminophen (Tylenol -) 650 mg PO Q6H PRN PRN Reason: PAIN OR FEVER Last Admin: 08/30/18 11:27 Dose: 650 mg Albuterol Sulfate (Ventolin 0.083% Nebulizer Soln -) 1 amp NEB Q4H PRN PRN Reason: SHORT OF BREATH/WHEEZING Last Admin: 08/30/18 11:15 Dose: 1 amp Albuterol/Ipratropium (Duoneb -) 1 amp NEB TID [facility] Last Admin: 08/30/18 14:50 Dose: 1 amp Amlodipine Besylate (Norvasc -) 5 mg PO DAILY [facility] Last Admin: 08/30/18 11:28 Dose: 5 mg Aspirin (Ecotrin -) 81 mg PO DAILY [facility] Last Admin: 08/30/18 11:27 Dose: 81 mg Atorvastatin Calcium (Lipitor -) 20 mg PO HS [facility] Last Admin: 08/29/18 21:29 Dose: 20 mg Carvedilol (Coreg -) 3.125 mg PO BID [facility] Last Admin: 08/30/18 11:27 Dose: 3.125 mg Guaifenesin (Robitussin Dm -) 10 ml PO Q6H PRN PRN Reason: COUGH Last Admin: 08/30/18 11:26 Dose: 10 ml Heparin Sodium (Porcine) (Heparin -) 5,000 unit SQ BID [facility] Last Admin: 08/30/18 11:28 Dose: 5,000 unit Azithromycin (Zithromax 500mg Ivpb (Pre-Docked)) 500 mg in 250 mls @ 250 mls/ hr IVPB DAILY [facility] Last Admin: 08/30/18 11:30 Dose: 250 mls/hr Ceftriaxone Sodium 1 gm/ (Dextrose) 50 mls @ 100 mls/hr IVPB DAILY [facility]; Protocol Last Admin: 08/30/18 14:17 Dose: 100 mls/hr Insulin Aspart (Novolog Vial Sliding Scale -) 1 vial SQ ACHS [facility]; Protocol Last Admin: 08/30/18 11:33 Dose: Not Given Insulin Detemir (Levemir Vial) 20 units SQ DAILY@0700 [facility] Last Admin: 08/30/18 06:53 Dose: 20 units Melatonin (Melatonin) 5 mg PO HS PRN PRN Reason: INSOMNIA Last Admin: 08/29/18 23:16 Dose: 5 mg Morphine Sulfate (Morphine Sulfate) 2 mg IVPUSH Q4H PRN PRN Reason: PAIN LEVEL 1-5 Pantoprazole Sodium (Protonix -) 40 mg PO DAILY [facility] Last Admin: 08/30/18 11:30 Dose: 40 mg - Objective Vital Signs: Vital Signs Temperature 98.0 F 08/30/18 15:00 Pulse Rate 76 08/30/18 15:00 Respiratory Rate 22 H 08/30/18 15:00 Blood Pressure 143/114 H 08/30/18 15:00 O2 Sat by Pulse Oximetry (%) 96 08/30/18 09:00 Constitutional: Yes: Calm Eyes: Yes: Conjunctiva Clear HENT: Yes: Atraumatic Neck: Yes: Supple Cardiovascular: Yes: S1, S2 Respiratory: Yes: On Nasal O2 Gastrointestinal: Yes: Soft Genitourinary: Yes: WNL Musculoskeletal: Yes: WNL Edema: Yes Edema: LLE: 1+, RLE: 1+ Neurological: Yes: Oriented Psychiatric: Yes: Oriented Labs: CBC, BMP 08/30/18 07:19 08/30/18 07:19 Problem List - Problems (1) CKD (chronic kidney disease) Code(s): N18.9 - CHRONIC KIDNEY DISEASE, UNSPECIFIED (2) Anemia Code(s): D64.9 - ANEMIA, UNSPECIFIED (3) Community acquired pneumonia Code(s): J18.9 - PNEUMONIA, UNSPECIFIED ORGANISM Qualifiers: Laterality: right Lung location: middle lobe of lung Qualified Code(s): J18.1 - Lobar pneumonia, unspecified organism (4) HTN (hypertension) Code(s): I10 - ESSENTIAL (PRIMARY) HYPERTENSION Assessment/Plan Current Medications Generic Name Dose Route Start Last Admin Trade Name Freq PRN Reason Stop Dose Admin Acetaminophen 650 mg 08/28/18 20:29 08/30/18 11:27 Tylenol - PO 650 mg Q6H PRN Administration PAIN OR FEVER Albuterol Sulfate 1 amp 08/30/18 10:37 08/30/18 11:15 Ventolin 0.083% Nebulizer Soln - NEB 1 amp Q4H PRN Administration SHORT OF BREATH/WHEEZING Albuterol/Ipratropium 1 amp 08/30/18 14:00 08/30/18 14:50 Duoneb - NEB 1 amp TID [facility] Administration Amlodipine Besylate 5 mg 08/28/18 13:15 08/30/18 11:28 Norvasc - PO 5 mg DAILY [facility] Administration Aspirin 81 mg 08/28/18 10:00 08/30/18 11:27 Ecotrin - PO 81 mg DAILY [facility] Administration Atorvastatin Calcium 20 mg 08/28/18 22:00 08/29/18 21:29 Lipitor - PO 20 mg HS [facility] Administration Carvedilol 3.125 mg 08/27/18 21:45 08/30/18 11:27 Coreg - PO 3.125 mg BID [facility] Administration Guaifenesin 10 ml 08/27/18 19:28 08/30/18 11:26 Robitussin Dm - PO 10 ml Q6H PRN Administration COUGH Heparin Sodium (Porcine) 5,000 unit 08/27/18 22:00 08/30/18 11:28 Heparin - SQ 5,000 unit BID [facility] Administration Azithromycin 500 mg in 250 mls @ 250 mls/hr 08/28/18 10:00 08/30/18 11:30 Zithromax 500mg Ivpb (Pre-Docked) IVPB 250 mls/hr DAILY [facility] Administration Ceftriaxone Sodium 1 gm/ 50 mls @ 100 mls/hr 08/30/18 13:30 08/30/18 14:17 Dextrose IVPB 100 mls/hr DAILY [facility] Administration Protocol Insulin Aspart 1 vial 08/27/18 22:00 08/30/18 11:33 Novolog Vial Sliding Scale - SQ Not Given ACHS [facility] Protocol Insulin Detemir 20 units 08/28/18 10:00 08/30/18 06:53 Levemir Vial SQ 20 units DAILY@0700 [facility] Administration Melatonin 5 mg 08/28/18 20:29 08/29/18 23:16 Melatonin PO 5 mg HS PRN Administration INSOMNIA Morphine Sulfate 2 mg 08/29/18 21:36 Morphine Sulfate IVPUSH Q4H PRN PAIN LEVEL 1-5 Pantoprazole Sodium 40 mg 08/28/18 10:00 08/30/18 11:30 Protonix - PO 40 mg DAILY [facility] Administration Laboratory Tests 08/29/18 08/29/18 17:30 17:30 Urine Protein 3+ H Protein/Creatinin Ratio 6.260 Impression 1. CKD with unclear baseline 2. HTN 3. DM 4. HLD 5. possible lung mass 6. 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
[2018-08-30] MEDS: ATORVASTATIN CA 20 MG TABLET (FP) PO SCH (22:34)
[2018-08-30] MEDS: MELATONIN 5 MG TABLETS PO PRN (22:34)
[2018-08-31] MEDS: INSULIN SLIDING SCALE (NOVOLOG) 1 VIAL SQ SCH ×4 (06:30→22:05)
[2018-08-31] MEDS: INSULIN (LEVEMIR) 100 UNITS/ML UNITS SQ SCH (06:31)
[2018-08-31 08:25] LABS: BASO % 1.2 % (0-2.0); EOS % 4.3 % (0-4.5); HEMATOCRIT 23.5 % (35.4-49); HEMOGLOBIN 7.9 GM/dL (11.7-16.9); LYMPH % 11.8 % (8-40); MCH 28.5 pg (25.7-33.7); MCHC 33.5 g/dl (32.0-35.9); MEAN CELL VOLUME 85.1 fl (80-96); MEAN PLT VOLUME 9.1 fl (7.5-11.1); MONO % 8.1 % (3.8-10.2); NEUT % 74.6 % (42.8-82.8); PLATELET COUNT 198 K/MM3 (134-434); RBC 2.76 M/mm3 (4.00-5.60); RDW 14.2 % (11.9-15.9); WHITE BLOOD COUNT 4.8 K/mm3 (4.0-10.0)
[2018-08-31] MEDS: ALBUTEROL SO4 2.5/IPRATROPIUM 0.5 INH SOL 3 ML VIAL.NEB. NEB SCH ×3 (08:35→21:25)
[2018-08-31 08:51] LABS: ALBUMIN 2.6 g/dl (3.4-5.0); BILIRUBIN,TOTAL 0.4 mg/dL (0.2-1); BLOOD UREA NITROGEN 35.1 mg/dL (7-18); CALCIUM 8.1 mg/dL (8.5-10.1); MAGNESIUM 2.2 mg/dL (1.8-2.4); POTASSIUM 4.9 mmol/L (3.5-5.1); TOT PROT 6.2 g/dl (6.4-8.2)
[2018-08-31] MEDS ORDERED: cefTRIAXone SODIUM 1 GM VIAL ONE (09:15)
[2018-08-31] MEDS ORDERED: DEXTROSE 5%-WATER - 50 ML IVPB ONE (09:16)
[2018-08-31] MEDS: CEFTRIAXONE 1 GM in DEXTROSE 5%-WATER - 50 ML IVPB SCH (11:10)
[2018-08-31] MEDS: AZITHROMYCIN IVPB 500 MG/250 ML BAG IVPB SCH (11:10)
[2018-08-31] MEDS: ASPIRIN COATED 81 MG TABLET.EC PO SCH (11:11)
[2018-08-31] MEDS: PANTOPRAZOLE 40 MG TABLET (FP) PO SCH (11:11)
[2018-08-31] MEDS: CARVEDILOL 3.125 MG TABLET (FP) PO SCH (11:11)
[2018-08-31] MEDS: amLODIPine BESYLATE 5 MG TABLET (FP) PO SCH (11:11)
[2018-08-31] MEDS: HEPARIN NA (PORCINE) 5,000 UNITS/ML 1ML VIAL SQ SCH ×2 (11:11→22:04)
[2018-08-31] MEDS ORDERED: INSULIN (NOVOLOG) ASPART 100 UNITS/ML 10ML VIAL ONE (12:57)
--- NOTE | 2018-08-31 13:12 | PN ---
Progress Note, Physician History of Present Illness: Pt seen and examined at bedside. He is awake and alert. He denies dysuria. - Current Medication List Current Medications: Active Medications Acetaminophen (Tylenol -) 650 mg PO Q6H PRN PRN Reason: PAIN OR FEVER Last Admin: 08/30/18 20:35 Dose: 650 mg Albuterol Sulfate (Ventolin 0.083% Nebulizer Soln -) 1 amp NEB Q4H PRN PRN Reason: SHORT OF BREATH/WHEEZING Last Admin: 08/30/18 11:15 Dose: 1 amp Albuterol/Ipratropium (Duoneb -) 1 amp NEB TID [facility] Last Admin: 08/31/18 08:35 Dose: 1 amp Amlodipine Besylate (Norvasc -) 5 mg PO DAILY [facility] Last Admin: 08/31/18 11:11 Dose: 5 mg Aspirin (Ecotrin -) 81 mg PO DAILY [facility] Last Admin: 08/31/18 11:11 Dose: 81 mg Atorvastatin Calcium (Lipitor -) 20 mg PO HS [facility] Last Admin: 08/30/18 22:34 Dose: 20 mg Carvedilol (Coreg -) 3.125 mg PO BID [facility] Last Admin: 08/31/18 11:11 Dose: 3.125 mg Guaifenesin (Robitussin Dm -) 10 ml PO Q6H PRN PRN Reason: COUGH Last Admin: 08/30/18 22:34 Dose: 10 ml Heparin Sodium (Porcine) (Heparin -) 5,000 unit SQ BID [facility] Last Admin: 08/31/18 11:11 Dose: 5,000 unit Azithromycin (Zithromax 500mg Ivpb (Pre-Docked)) 500 mg in 250 mls @ 250 mls/ hr IVPB DAILY [facility] Last Admin: 08/31/18 11:10 Dose: 250 mls/hr Ceftriaxone Sodium 1 gm/ (Dextrose) 50 mls @ 100 mls/hr IVPB DAILY [facility]; Protocol Last Admin: 08/31/18 11:10 Dose: 100 mls/hr Insulin Aspart (Novolog Vial Sliding Scale -) 1 vial SQ ACHS [facility]; Protocol Last Admin: 08/31/18 13:01 Dose: 2 units Insulin Detemir (Levemir Vial) 20 units SQ DAILY@0700 [facility] Last Admin: 08/31/18 06:31 Dose: 20 units Melatonin (Melatonin) 5 mg PO HS PRN PRN Reason: INSOMNIA Last Admin: 08/30/18 22:34 Dose: 5 mg Morphine Sulfate (Morphine Sulfate) 2 mg IVPUSH Q4H PRN PRN Reason: PAIN LEVEL 1-5 Pantoprazole Sodium (Protonix -) 40 mg PO DAILY [facility] Last Admin: 08/31/18 11:11 Dose: 40 mg - Objective Vital Signs: Vital Signs Temperature 97.9 F 08/31/18 10:00 Pulse Rate 88 08/31/18 10:00 Respiratory Rate 18 08/31/18 10:00 Blood Pressure 170/90 08/31/18 10:00 O2 Sat by Pulse Oximetry (%) 95 08/30/18 21:00 Constitutional: Yes: Calm Eyes: Yes: Conjunctiva Clear HENT: Yes: Atraumatic Neck: Yes: Supple Cardiovascular: Yes: S1, S2 Respiratory: Yes: CTA Bilaterally, On Nasal O2 Gastrointestinal: Yes: Normal Bowel Sounds, Soft Genitourinary: Yes: WNL Extremities: Yes: WNL Edema: No Integumentary: Yes: WNL Neurological: Yes: Oriented Psychiatric: Yes: Oriented Labs: CBC, BMP 08/31/18 07:20 08/31/18 07:20 Problem List - Problems (1) CKD (chronic kidney disease) Code(s): N18.9 - CHRONIC KIDNEY DISEASE, UNSPECIFIED (2) Anemia Code(s): D64.9 - ANEMIA, UNSPECIFIED (3) Community acquired pneumonia Code(s): J18.9 - PNEUMONIA, UNSPECIFIED ORGANISM Qualifiers: Laterality: right Lung location: middle lobe of lung Qualified Code(s): J18.1 - Lobar pneumonia, unspecified organism (4) HTN (hypertension) Code(s): I10 - ESSENTIAL (PRIMARY) HYPERTENSION Assessment/Plan Current Medications Generic Name Dose Route Start Last Admin Trade Name Freq PRN Reason Stop Dose Admin Acetaminophen 650 mg 08/28/18 20:29 08/30/18 20:35 Tylenol - PO 650 mg Q6H PRN Administration PAIN OR FEVER Albuterol Sulfate 1 amp 08/30/18 10:37 08/30/18 11:15 Ventolin 0.083% Nebulizer Soln - NEB 1 amp Q4H PRN Administration SHORT OF BREATH/WHEEZING Albuterol/Ipratropium 1 amp 08/30/18 14:00 08/31/18 08:35 Duoneb - NEB 1 amp TID [facility] Administration Amlodipine Besylate 5 mg 08/28/18 13:15 08/31/18 11:11 Norvasc - PO 5 mg DAILY [facility] Administration Aspirin 81 mg 08/28/18 10:00 08/31/18 11:11 Ecotrin - PO 81 mg DAILY [facility] Administration Atorvastatin Calcium 20 mg 08/28/18 22:00 08/30/18 22:34 Lipitor - PO 20 mg HS [facility] Administration Carvedilol 3.125 mg 08/27/18 21:45 08/31/18 11:11 Coreg - PO 3.125 mg BID [facility] Administration Guaifenesin 10 ml 08/27/18 19:28 08/30/18 22:34 Robitussin Dm - PO 10 ml Q6H PRN Administration COUGH Heparin Sodium (Porcine) 5,000 unit 08/27/18 22:00 08/31/18 11:11 Heparin - SQ 5,000 unit BID [facility] Administration Azithromycin 500 mg in 250 mls @ 250 mls/hr 08/28/18 10:00 08/31/18 11:10 Zithromax 500mg Ivpb (Pre-Docked) IVPB 250 mls/hr DAILY [facility] Administration Ceftriaxone Sodium 1 gm/ 50 mls @ 100 mls/hr 08/30/18 13:30 08/31/18 11:10 Dextrose IVPB 100 mls/hr DAILY [facility] Administration Protocol Insulin Aspart 1 vial 08/27/18 22:00 08/31/18 13:01 Novolog Vial Sliding Scale - SQ 2 units ACHS [facility] Administration Protocol Insulin Detemir 20 units 08/28/18 10:00 08/31/18 06:31 Levemir Vial SQ 20 units DAILY@0700 [facility] Administration Melatonin 5 mg 08/28/18 20:29 08/30/18 22:34 Melatonin PO 5 mg HS PRN Administration INSOMNIA Morphine Sulfate 2 mg 08/29/18 21:36 Morphine Sulfate IVPUSH Q4H PRN PAIN LEVEL 1-5 Pantoprazole Sodium 40 mg 08/28/18 10:00 08/31/18 11:11 Protonix - PO 40 mg DAILY [facility] Administration Laboratory Tests 08/31/18 08/31/18 08/31/18 07:20 07:20 07:20 JUAN A M-Yakov Pending JULIANA Screen Pending c-ANCA Pending Proteinase 3 (PR3) Pending p-ANCA Pending Atypical p-ANCA Pending Myeloperoxidase Ab Pending Double Strand DNA Ab Pending Glomerular Base Memb Ab Pending Hepatitis A Ab Total Pending Hep Bs Antigen Pending Hep Bs Antibody Pending Hep B Core Total Ab Pending Hep B Core IgM Ab Pending Hepatitis Be Antibody Pending Hepatitis Be Antigen Pending HCV Quantitation Pending Laboratory Tests 08/31/18 07:20 Hemoglobin A1c % 6.9 H Impression 1. CKD with unclear baseline 2. HTN 3. DM 4. HLD 5. possible lung mass 6. nephrotic range proteinuria Plan - manager federal is improving - renal workup in progress - monitor bp and titrate up the dose of coreg as tolerated - pt with nephrotic range prteinuria, a1c is 6.9 - may need kidney biopsy when more stable - pulmonary input appreciated \
--- NOTE | 2018-08-31 13:29 | PN ---
Progress Note, Physician Chief Complaint: sob History of Present Illness: no acute events overnight, has pleuritic chest pain when coughing - Current Medication List Current Medications: Active Medications Acetaminophen (Tylenol -) 650 mg PO Q6H PRN PRN Reason: PAIN OR FEVER Last Admin: 08/30/18 20:35 Dose: 650 mg Albuterol Sulfate (Ventolin 0.083% Nebulizer Soln -) 1 amp NEB Q4H PRN PRN Reason: SHORT OF BREATH/WHEEZING Last Admin: 08/30/18 11:15 Dose: 1 amp Albuterol/Ipratropium (Duoneb -) 1 amp NEB TID [facility] Last Admin: 08/31/18 08:35 Dose: 1 amp Amlodipine Besylate (Norvasc -) 5 mg PO DAILY [facility] Last Admin: 08/31/18 11:11 Dose: 5 mg Aspirin (Ecotrin -) 81 mg PO DAILY [facility] Last Admin: 08/31/18 11:11 Dose: 81 mg Atorvastatin Calcium (Lipitor -) 20 mg PO HS [facility] Last Admin: 08/30/18 22:34 Dose: 20 mg Carvedilol (Coreg -) 3.125 mg PO BID [facility] Last Admin: 08/31/18 11:11 Dose: 3.125 mg Guaifenesin (Robitussin Dm -) 10 ml PO Q6H PRN PRN Reason: COUGH Last Admin: 08/30/18 22:34 Dose: 10 ml Heparin Sodium (Porcine) (Heparin -) 5,000 unit SQ BID [facility] Last Admin: 08/31/18 11:11 Dose: 5,000 unit Azithromycin (Zithromax 500mg Ivpb (Pre-Docked)) 500 mg in 250 mls @ 250 mls/ hr IVPB DAILY [facility] Last Admin: 08/31/18 11:10 Dose: 250 mls/hr Ceftriaxone Sodium 1 gm/ (Dextrose) 50 mls @ 100 mls/hr IVPB DAILY [facility]; Protocol Last Admin: 08/31/18 11:10 Dose: 100 mls/hr Insulin Aspart (Novolog Vial Sliding Scale -) 1 vial SQ ACHS [facility]; Protocol Last Admin: 08/31/18 13:01 Dose: 2 units Insulin Detemir (Levemir Vial) 20 units SQ DAILY@0700 [facility] Last Admin: 08/31/18 06:31 Dose: 20 units Melatonin (Melatonin) 5 mg PO HS PRN PRN Reason: INSOMNIA Last Admin: 08/30/18 22:34 Dose: 5 mg Morphine Sulfate (Morphine Sulfate) 2 mg IVPUSH Q4H PRN PRN Reason: PAIN LEVEL 1-5 Pantoprazole Sodium (Protonix -) 40 mg PO DAILY [facility] Last Admin: 08/31/18 11:11 Dose: 40 mg - Objective Vital Signs: Vital Signs Temperature 97.9 F 08/31/18 10:00 Pulse Rate 88 08/31/18 10:00 Respiratory Rate 18 08/31/18 10:00 Blood Pressure 170/90 08/31/18 10:00 O2 Sat by Pulse Oximetry (%) 95 08/30/18 21:00 Constitutional: Yes: Well Nourished, No Distress, Calm Cardiovascular: Yes: WNL, Regular Rate and Rhythm Respiratory: Yes: Cough, Rhonchi, Wheezes. No: Accessory Muscle Use Gastrointestinal: Yes: WNL, Normal Bowel Sounds, Soft, Abdomen, Obese Musculoskeletal: Yes: WNL Extremities: Yes: WNL Edema: No Labs: CBC, BMP 08/31/18 07:20 08/31/18 07:20 Problem List - Problems (1) [id number] kidney injury Code(s): N17.9 - ACUTE KIDNEY FAILURE, UNSPECIFIED; N18.9 - CHRONIC KIDNEY DISEASE, UNSPECIFIED (2) Community acquired pneumonia Code(s): J18.9 - PNEUMONIA, UNSPECIFIED ORGANISM Qualifiers: Laterality: right Lung location: middle lobe of lung Qualified Code(s): J18.1 - Lobar pneumonia, unspecified organism (3) Diabetes Code(s): E11.9 - TYPE 2 DIABETES MELLITUS WITHOUT COMPLICATIONS (4) HLD (hyperlipidemia) Code(s): E78.5 - HYPERLIPIDEMIA, UNSPECIFIED (5) HTN (hypertension) Code(s): I10 - ESSENTIAL (PRIMARY) HYPERTENSION (6) Pleuritic chest pain Code(s): R07.81 - PLEURODYNIA (7) Acute kidney injury Code(s): N17.9 - ACUTE KIDNEY FAILURE, UNSPECIFIED Assessment/Plan Assessment: Community acquired pneumonia HLD (hyperlipidemia) HTN (hypertension) [id number] kidney injury Pleuritic chest pain Diabetes Anemia Plan: -continue IV abx -sputum for AFB pending, quantiferon gold pending, c/w isolation precautions -inhaled BD -supplemental O2 as needed -pain control adequate -smoking cessation counseling HLD on statin HTN -uncontrolled -will increase coreg and norvasc doses Acute on chronic kidney disease -renal us unremarkable -workup under way per nephro -monitor DM -c/w current regimen -BS checks -A1C 6.9 Anemia-normocytic -will check basic workup -monitor counts and transfuse if hb<7
--- NOTE | 2018-08-31 14:04 | PN ---
Progress Note (short form) - Note Progress Note: PULMONARY Denies shortness of breath, cough. No fevers or chills. Vital Signs Period Temp Pulse Resp BP Sys/Newman Pulse Ox Last 24 Hr 97.9 F-98.7 F 76-88 18-22 143-197/84-114 95 Gen: NAD at rest Heart: RRR Lung: decreased breath sounds at the bases Abd: soft, nontender Ext: no edema CBC, BMP 08/31/18 07:20 08/31/18 07:20 Active Medications Acetaminophen (Tylenol -) 650 mg PO Q6H PRN PRN Reason: PAIN OR FEVER Last Admin: 08/30/18 20:35 Dose: 650 mg Albuterol Sulfate (Ventolin 0.083% Nebulizer Soln -) 1 amp NEB Q4H PRN PRN Reason: SHORT OF BREATH/WHEEZING Last Admin: 08/30/18 11:15 Dose: 1 amp Albuterol/Ipratropium (Duoneb -) 1 amp NEB TID [facility] Last Admin: 08/31/18 13:47 Dose: 1 amp Amlodipine Besylate (Norvasc -) 10 mg PO DAILY [facility] Aspirin (Ecotrin -) 81 mg PO DAILY [facility] Last Admin: 08/31/18 11:11 Dose: 81 mg Atorvastatin Calcium (Lipitor -) 20 mg PO HS [facility] Last Admin: 08/30/18 22:34 Dose: 20 mg Carvedilol (Coreg -) 6.25 mg PO BID [facility] Guaifenesin (Robitussin Dm -) 10 ml PO Q6H PRN PRN Reason: COUGH Last Admin: 08/30/18 22:34 Dose: 10 ml Heparin Sodium (Porcine) (Heparin -) 5,000 unit SQ BID [facility] Last Admin: 08/31/18 11:11 Dose: 5,000 unit Azithromycin (Zithromax 500mg Ivpb (Pre-Docked)) 500 mg in 250 mls @ 250 mls/ hr IVPB DAILY [facility] Last Admin: 08/31/18 11:10 Dose: 250 mls/hr Ceftriaxone Sodium 1 gm/ (Dextrose) 50 mls @ 100 mls/hr IVPB DAILY [facility]; Protocol Last Admin: 08/31/18 11:10 Dose: 100 mls/hr Insulin Aspart (Novolog Vial Sliding Scale -) 1 vial SQ ACHS [facility]; Protocol Last Admin: 08/31/18 13:01 Dose: 2 units Insulin Detemir (Levemir Vial) 20 units SQ DAILY@0700 [facility] Last Admin: 08/31/18 06:31 Dose: 20 units Melatonin (Melatonin) 5 mg PO HS PRN PRN Reason: INSOMNIA Last Admin: 08/30/18 22:34 Dose: 5 mg Morphine Sulfate (Morphine Sulfate) 2 mg IVPUSH Q4H PRN PRN Reason: PAIN LEVEL 1-5 Pantoprazole Sodium (Protonix -) 40 mg PO DAILY [facility] Last Admin: 08/31/18 11:11 Dose: 40 mg A/P r/o Pneumonia Acute on Chronic Renal Failure HTN DM Hyperlipidmemia Anemia - continue antibiotics - f/u cultures - CT chest findings suggestive of fluid in the fissue, will need outpt f/u of chest imaging to ensure resolution - DVT prophylaxis
[2018-08-31] MEDS: guaiFENesin/D-METHORPHAN HB 10 ML UNIT-DOSE CUPS PO PRN (17:29)
[2018-08-31] MEDS: MELATONIN 5 MG TABLETS PO PRN (22:04)
[2018-08-31] MEDS: CARVEDILOL 6.25 MG TABLET (FP) PO SCH (22:04)
[2018-08-31] MEDS: ATORVASTATIN CA 20 MG TABLET (FP) PO SCH (22:04)
[2018-09-01] MEDS: LIDOCAINE 5% TOPICAL PATCH TP SCH (00:01)
[2018-09-01] MEDS: INSULIN SLIDING SCALE (NOVOLOG) 1 VIAL SQ SCH ×4 (06:26→21:42)
[2018-09-01] MEDS: INSULIN (LEVEMIR) 100 UNITS/ML UNITS SQ SCH (06:28)
[2018-09-01] MEDS: ALBUTEROL SO4 2.5/IPRATROPIUM 0.5 INH SOL 3 ML VIAL.NEB. NEB SCH ×3 (07:31→20:16)
--- NOTE | 2018-09-01 07:45 | PN ---
Progress Note, Physician Chief Complaint: shortness of breath, abdominal pain from coughing History of Present Illness: This is a 58 y/o man with a PMHx of HTN, DM, Renal Insufficiency, Anemia. Who presents to the ED with his family for SOB, fever, productive yellow cough, elevated BP and BS. The patient is Icelandic speaking and the daughter translated. Per the daughter the patient had subjective fevers of 103 at home yesterday and he was having difficulty breathing and generalized bodyaches. Per the daughter patient was suppose to have a procedure for a "artery blockage" but it was cancelled due to his kidney function. Patient missed his home meds today due to feeling ill. Patient denies dizziness, CP, palpitations, AP, N/V/D , constipation, dysuria. Patient had recent travel [place] 2 months ago. - Current Medication List Current Medications: Active Medications Acetaminophen (Tylenol -) 650 mg PO Q6H PRN PRN Reason: PAIN OR FEVER Last Admin: 08/30/18 20:35 Dose: 650 mg Albuterol Sulfate (Ventolin 0.083% Nebulizer Soln -) 1 amp NEB Q4H PRN PRN Reason: SHORT OF BREATH/WHEEZING Last Admin: 08/30/18 11:15 Dose: 1 amp Albuterol/Ipratropium (Duoneb -) 1 amp NEB RTID [facility] Last Admin: 09/01/18 07:31 Dose: 1 amp Amlodipine Besylate (Norvasc -) 10 mg PO DAILY [facility] Aspirin (Ecotrin -) 81 mg PO DAILY [facility] Last Admin: 08/31/18 11:11 Dose: 81 mg Atorvastatin Calcium (Lipitor -) 20 mg PO HS [facility] Last Admin: 08/31/18 22:04 Dose: 20 mg Carvedilol (Coreg -) 6.25 mg PO BID [facility] Last Admin: 08/31/18 22:04 Dose: 6.25 mg Guaifenesin (Robitussin Dm -) 10 ml PO Q6H PRN PRN Reason: COUGH Last Admin: 08/31/18 17:29 Dose: 10 ml Heparin Sodium (Porcine) (Heparin -) 5,000 unit SQ BID [facility] Last Admin: 08/31/18 22:04 Dose: 5,000 unit Azithromycin (Zithromax 500mg Ivpb (Pre-Docked)) 500 mg in 250 mls @ 250 mls/ hr IVPB DAILY [facility] Last Admin: 08/31/18 11:10 Dose: 250 mls/hr Ceftriaxone Sodium 1 gm/ (Dextrose) 50 mls @ 100 mls/hr IVPB DAILY [facility]; Protocol Last Admin: 08/31/18 11:10 Dose: 100 mls/hr Insulin Aspart (Novolog Vial Sliding Scale -) 1 vial SQ ACHS [facility]; Protocol Last Admin: 09/01/18 06:26 Dose: Not Given Insulin Detemir (Levemir Vial) 20 units SQ DAILY@0700 [facility] Last Admin: 09/01/18 06:28 Dose: 20 units Lidocaine (Lidoderm Patch -) 1 patch TP DAILY@0000 [facility] Last Admin: 09/01/18 00:01 Dose: 1 patch Melatonin (Melatonin) 5 mg PO HS PRN PRN Reason: INSOMNIA Last Admin: 08/31/18 22:04 Dose: 5 mg Miscellaneous (Lidoderm Patch Removal) 1 each MC DAILY@1200 [facility] Morphine Sulfate (Morphine Sulfate) 2 mg IVPUSH Q4H PRN PRN Reason: PAIN LEVEL 1-5 Pantoprazole Sodium (Protonix -) 40 mg PO DAILY [facility] Last Admin: 08/31/18 11:11 Dose: 40 mg - Objective Vital Signs: Vital Signs Temperature 99.6 F 09/01/18 06:30 Pulse Rate 80 09/01/18 06:30 Respiratory Rate 20 09/01/18 06:30 Blood Pressure 134/76 09/01/18 06:30 O2 Sat by Pulse Oximetry (%) 94 L 08/31/18 21:00 Constitutional: Yes: Well Nourished, No Distress, Calm Eyes: Yes: WNL, Conjunctiva Clear, EOM Intact HENT: Yes: WNL, Atraumatic, Normocephalic Neck: Yes: WNL, Supple, Trachea Midline Cardiovascular: Yes: WNL, Regular Rate and Rhythm Respiratory: Yes: WNL, Regular, Diminished (at bases), Rhonchi (scattered) Gastrointestinal: Yes: WNL, Normal Bowel Sounds, Soft ...Rectal Exam: Yes: Deferred Genitourinary: Yes: WNL Musculoskeletal: Yes: WNL Extremities: Yes: WNL Edema: No Peripheral Pulses WNL: Yes Integumentary: Yes: WNL Neurological: Yes: WNL, Alert, Oriented ...Motor Strength: WNL Psychiatric: Yes: WNL, Alert, Oriented Labs: CBC, BMP 08/31/18 07:20 08/31/18 07:20 - ....Imaging Chest X-ray: Report Reviewed, Image Reviewed Problem List - Problems (1) Community acquired pneumonia Assessment/Plan: continue azithromycin and ceftriaxone -cultures as follows: Bcx NGTD, Sputum for AFB negatie x 2, legionalla negative , sputum cx 08/31 with GPC, GPB - Isolation precautions with HEPA filter in room -Quantiferon Gold pending -continue bronchdilators -supplemental O2 to mainatin sat >92 % Code(s): J18.9 - PNEUMONIA, UNSPECIFIED ORGANISM Qualifiers: Laterality: right Lung location: middle lobe of lung Qualified Code(s): J18.1 - Lobar pneumonia, unspecified organism (2) HLD (hyperlipidemia) Assessment/Plan: continue home nagel of atrovastatin low cholesterol/low fat diet Code(s): E78.5 - HYPERLIPIDEMIA, UNSPECIFIED (3) HTN (hypertension) Assessment/Plan: increase home dose of carvedilol to 12.5 BID Code(s): I10 - ESSENTIAL (PRIMARY) HYPERTENSION (4) Xwlcy-ro-hivgwsg kidney injury Assessment/Plan: Cr 3.2 now,unclear to baseline -cont to monitor renal function - renal ultrasound reviewed by Dr Martin and no acute pathology seen -urine lytes: Una95, Ucr77.5, FeNa 2.95%, suggestive or pre-renal state given any absence of pathology on renal US -IVF stopped, continue to monitor volume status -renal biopsy when more stable Code(s): N17.9 - ACUTE KIDNEY FAILURE, UNSPECIFIED; N18.9 - CHRONIC KIDNEY DISEASE, UNSPECIFIED (5) Pleuritic chest pain Assessment/Plan: MSO4/tylenol PRN for pain encourage patient to use a pillow to splint when coughing Code(s): R07.81 - PLEURODYNIA (6) Prophylactic measure Assessment/Plan: FEN low fat/cholesterol diabetic diet no need for IVF at this time daily CMP DVT Proph heparin 5000 u bid Dispo mainatin as in patient full code discharge planning Code(s): Z29.9 - ENCOUNTER FOR PROPHYLACTIC MEASURES, UNSPECIFIED (7) Diabetes Assessment/Plan: BGM AC/qhs novolog sliding scale continue am levemir Code(s): E11.9 - TYPE 2 DIABETES MELLITUS WITHOUT COMPLICATIONS (8) Lung mass Assessment/Plan: BL pleural effusion, RML opacity will need further imaging as outpt SPutum cx, QUANTIFERON & HIV pending Code(s): R91.8 - OTHER NONSPECIFIC ABNORMAL FINDING OF LUNG FIELD Visit type - Emergency Visit Emergency Visit: Yes ED Registration Date: 08/27/18 Care time: The patient presented to the Emergency Department on the above date and was hospitalized for further evaluation of their emergent condition. - New Patient This patient is new to me today: No - Critical Care Critical Care patient: No - Discharge Referral Referred to [facility] Med P.C.: No
[2018-09-01] MEDS ORDERED: DEXTROSE 5%-WATER - 50 ML IVPB ONE (09:38)
[2018-09-01] MEDS ORDERED: cefTRIAXone SODIUM 1 GM VIAL ONE (09:38)
[2018-09-01] MEDS: CARVEDILOL 6.25 MG TABLET (FP) PO SCH (09:43)
[2018-09-01] MEDS: PANTOPRAZOLE 40 MG TABLET (FP) PO SCH (09:43)
[2018-09-01] MEDS: ASPIRIN COATED 81 MG TABLET.EC PO SCH (09:43)
[2018-09-01] MEDS: HEPARIN NA (PORCINE) 5,000 UNITS/ML 1ML VIAL SQ SCH ×2 (09:43→21:20)
[2018-09-01] MEDS: CEFTRIAXONE 1 GM in DEXTROSE 5%-WATER - 50 ML IVPB SCH (09:43)
[2018-09-01] MEDS: amLODIPine BESYLATE 10 MG TABLET (FP) PO SCH (09:43)
[2018-09-01] MEDS: AZITHROMYCIN IVPB 500 MG/250 ML BAG IVPB SCH (10:43)
[2018-09-01 11:11] LABS: BASO % 0.7 % (0-2.0); EOS % 5.3 % (0-4.5); HEMATOCRIT 24.4 % (35.4-49); HEMOGLOBIN 8.2 GM/dL (11.7-16.9); LYMPH % 18.3 % (8-40); MCH 28.6 pg (25.7-33.7); MCHC 33.5 g/dl (32.0-35.9); MEAN CELL VOLUME 85.3 fl (80-96); MEAN PLT VOLUME 8.5 fl (7.5-11.1); NEUT % 65.7 % (42.8-82.8); PLATELET COUNT 202 K/MM3 (134-434); RBC 2.86 M/mm3 (4.00-5.60); WHITE BLOOD COUNT 4.5 K/mm3 (4.0-10.0)
[2018-09-01 11:38] LABS: ALBUMIN 2.5 g/dl (3.4-5.0); BILIRUBIN,TOTAL 0.3 mg/dL (0.2-1); BLOOD UREA NITROGEN 34.1 mg/dL (7-18); CALCIUM 8.3 mg/dL (8.5-10.1); CREATININE 3.2 mg/dL (0.55-1.3); POTASSIUM 5.2 mmol/L (3.5-5.1); TOT PROT 6.2 g/dl (6.4-8.2)
--- NOTE | 2018-09-01 13:18 | PN ---
Progress Note (short form) - Note Progress Note: PULMONARY Still feels weak, some shortness of breath with exertion. No fevers or chills. Vital Signs Period Temp Pulse Resp BP Sys/Newman Pulse Ox Last 24 Hr 98.2 F-99.6 F 80-82 18-22 134-167/76-86 94 Gen: NAD at rest Heart: RRR Lung: decreased breath sounds at the bases Abd: soft, nontender Ext: no edema CBC, BMP 09/01/18 10:35 09/01/18 10:35 Active Medications Acetaminophen (Tylenol -) 650 mg PO Q6H PRN PRN Reason: PAIN OR FEVER Last Admin: 08/30/18 20:35 Dose: 650 mg Albuterol Sulfate (Ventolin 0.083% Nebulizer Soln -) 1 amp NEB Q4H PRN PRN Reason: SHORT OF BREATH/WHEEZING Last Admin: 08/30/18 11:15 Dose: 1 amp Albuterol/Ipratropium (Duoneb -) 1 amp NEB RTID [facility] Last Admin: 09/01/18 07:31 Dose: 1 amp Amlodipine Besylate (Norvasc -) 10 mg PO DAILY [facility] Last Admin: 09/01/18 09:43 Dose: 10 mg Aspirin (Ecotrin -) 81 mg PO DAILY [facility] Last Admin: 09/01/18 09:43 Dose: 81 mg Atorvastatin Calcium (Lipitor -) 20 mg PO HS [facility] Last Admin: 08/31/18 22:04 Dose: 20 mg Carvedilol (Coreg -) 6.25 mg PO BID [facility] Last Admin: 09/01/18 09:43 Dose: 6.25 mg Guaifenesin (Robitussin Dm -) 10 ml PO Q6H PRN PRN Reason: COUGH Last Admin: 08/31/18 17:29 Dose: 10 ml Heparin Sodium (Porcine) (Heparin -) 5,000 unit SQ BID [facility] Last Admin: 09/01/18 09:43 Dose: 5,000 unit Azithromycin (Zithromax 500mg Ivpb (Pre-Docked)) 500 mg in 250 mls @ 250 mls/ hr IVPB DAILY [facility] Last Admin: 09/01/18 10:43 Dose: 250 mls/hr Ceftriaxone Sodium 1 gm/ (Dextrose) 50 mls @ 100 mls/hr IVPB DAILY [facility]; Protocol Last Admin: 09/01/18 09:43 Dose: 100 mls/hr Insulin Aspart (Novolog Vial Sliding Scale -) 1 vial SQ ACHS [facility]; Protocol Last Admin: 09/01/18 12:12 Dose: Not Given Insulin Detemir (Levemir Vial) 20 units SQ DAILY@0700 [facility] Last Admin: 09/01/18 06:28 Dose: 20 units Lidocaine (Lidoderm Patch -) 1 patch TP DAILY@0000 [facility] Last Admin: 09/01/18 00:01 Dose: 1 patch Melatonin (Melatonin) 5 mg PO HS PRN PRN Reason: INSOMNIA Last Admin: 08/31/18 22:04 Dose: 5 mg Miscellaneous (Lidoderm Patch Removal) 1 each MC DAILY@1200 [facility] Morphine Sulfate (Morphine Sulfate) 2 mg IVPUSH Q4H PRN PRN Reason: PAIN LEVEL 1-5 Pantoprazole Sodium (Protonix -) 40 mg PO DAILY [facility] Last Admin: 09/01/18 09:43 Dose: 40 mg A/P r/o Pneumonia Acute on Chronic Renal Failure HTN DM Hyperlipidmemia Anemia - continue antibiotics - f/u cultures - CT chest findings suggestive of fluid in the fissue, will need outpt f/u of chest imaging to ensure resolution - DVT prophylaxis
[2018-09-01] MEDS: LIDOCAINE PATCH REMOVAL MC SCH (14:06)
[2018-09-01] MEDS: BUDESONIDE/FORMETEROL FUMARATE 160/4.5 mcg INHALER IH SCH ×2 (14:36→21:43)
--- NOTE | 2018-09-01 15:00 | PN ---
Progress Note, Physician History of Present Illness: AWAKE, ALERT SUPINE IN BED REPORTS COUGH, WHITE SPUTUM NO HEMOPTYSIS NO C/O CHEST PAIN/ DYSPNEA NO F/C - Current Medication List Current Medications: Active Medications Acetaminophen (Tylenol -) 650 mg PO Q6H PRN PRN Reason: PAIN OR FEVER Last Admin: 08/30/18 20:35 Dose: 650 mg Albuterol Sulfate (Ventolin 0.083% Nebulizer Soln -) 1 amp NEB Q4H PRN PRN Reason: SHORT OF BREATH/WHEEZING Last Admin: 08/30/18 11:15 Dose: 1 amp Albuterol/Ipratropium (Duoneb -) 1 amp NEB RTID [facility] Last Admin: 09/01/18 13:30 Dose: 1 amp Amlodipine Besylate (Norvasc -) 10 mg PO DAILY [facility] Last Admin: 09/01/18 09:43 Dose: 10 mg Aspirin (Ecotrin -) 81 mg PO DAILY [facility] Last Admin: 09/01/18 09:43 Dose: 81 mg Atorvastatin Calcium (Lipitor -) 20 mg PO HS [facility] Last Admin: 08/31/18 22:04 Dose: 20 mg Budesonide/Formoterol Fumarate (Symbicort 160/4.5mcg -) 2 puff IH BID [facility] Last Admin: 09/01/18 14:36 Dose: 2 puff Carvedilol (Coreg -) 6.25 mg PO BID [facility] Last Admin: 09/01/18 09:43 Dose: 6.25 mg Guaifenesin (Robitussin Dm -) 10 ml PO Q6H PRN PRN Reason: COUGH Last Admin: 08/31/18 17:29 Dose: 10 ml Heparin Sodium (Porcine) (Heparin -) 5,000 unit SQ BID [facility] Last Admin: 09/01/18 09:43 Dose: 5,000 unit Azithromycin (Zithromax 500mg Ivpb (Pre-Docked)) 500 mg in 250 mls @ 250 mls/ hr IVPB DAILY [facility] Last Admin: 09/01/18 10:43 Dose: 250 mls/hr Ceftriaxone Sodium 1 gm/ (Dextrose) 50 mls @ 100 mls/hr IVPB DAILY [facility]; Protocol Last Admin: 09/01/18 09:43 Dose: 100 mls/hr Insulin Aspart (Novolog Vial Sliding Scale -) 1 vial SQ ACHS [facility]; Protocol Last Admin: 09/01/18 12:12 Dose: Not Given Insulin Detemir (Levemir Vial) 20 units SQ DAILY@0700 [facility] Last Admin: 09/01/18 06:28 Dose: 20 units Lidocaine (Lidoderm Patch -) 1 patch TP DAILY@0000 [facility] Last Admin: 09/01/18 00:01 Dose: 1 patch Melatonin (Melatonin) 5 mg PO HS PRN PRN Reason: INSOMNIA Last Admin: 08/31/18 22:04 Dose: 5 mg Miscellaneous (Lidoderm Patch Removal) 1 each MC DAILY@1200 [facility] Last Admin: 09/01/18 14:06 Dose: 1 each Morphine Sulfate (Morphine Sulfate) 2 mg IVPUSH Q4H PRN PRN Reason: PAIN LEVEL 1-5 Pantoprazole Sodium (Protonix -) 40 mg PO DAILY [facility] Last Admin: 09/01/18 09:43 Dose: 40 mg - Objective Vital Signs: Vital Signs Temperature 98.7 F 09/01/18 09:00 Pulse Rate 76 09/01/18 09:00 Respiratory Rate 20 09/01/18 11:00 Blood Pressure 123/76 09/01/18 09:00 O2 Sat by Pulse Oximetry (%) 94 L 09/01/18 11:00 Constitutional: Yes: No Distress Eyes: Yes: Conjunctiva Clear Cardiovascular: Yes: Regular Rate and Rhythm, S1, S2 Respiratory: Yes: Rhonchi Gastrointestinal: Yes: Normal Bowel Sounds, Soft. No: Tenderness Labs: CBC, BMP 09/01/18 10:35 09/01/18 10:35 Assessment/Plan MASS-LIKE RUL CONSOLIDATION/ LOCULATED FLUID COLLECTION RENAL INSUFICIENCY AWAIT SPUTUM [employer] CONTINUE ZITHROMAX/ CEFTRIXONE
--- NOTE | 2018-09-01 16:12 | PN ---
Progress Note, Physician History of Present Illness: Pt seen and examined at bedside. He is awake and alert. He denies shortness of breath. - Current Medication List Current Medications: Active Medications Acetaminophen (Tylenol -) 650 mg PO Q6H PRN PRN Reason: PAIN OR FEVER Last Admin: 08/30/18 20:35 Dose: 650 mg Albuterol Sulfate (Ventolin 0.083% Nebulizer Soln -) 1 amp NEB Q4H PRN PRN Reason: SHORT OF BREATH/WHEEZING Last Admin: 08/30/18 11:15 Dose: 1 amp Albuterol/Ipratropium (Duoneb -) 1 amp NEB RTID [facility] Last Admin: 09/01/18 13:30 Dose: 1 amp Amlodipine Besylate (Norvasc -) 10 mg PO DAILY [facility] Last Admin: 09/01/18 09:43 Dose: 10 mg Aspirin (Ecotrin -) 81 mg PO DAILY [facility] Last Admin: 09/01/18 09:43 Dose: 81 mg Atorvastatin Calcium (Lipitor -) 20 mg PO HS [facility] Last Admin: 08/31/18 22:04 Dose: 20 mg Budesonide/Formoterol Fumarate (Symbicort 160/4.5mcg -) 2 puff IH BID [facility] Last Admin: 09/01/18 14:36 Dose: 2 puff Carvedilol (Coreg -) 6.25 mg PO BID [facility] Last Admin: 09/01/18 09:43 Dose: 6.25 mg Guaifenesin (Robitussin Dm -) 10 ml PO Q6H PRN PRN Reason: COUGH Last Admin: 08/31/18 17:29 Dose: 10 ml Heparin Sodium (Porcine) (Heparin -) 5,000 unit SQ BID [facility] Last Admin: 09/01/18 09:43 Dose: 5,000 unit Azithromycin (Zithromax 500mg Ivpb (Pre-Docked)) 500 mg in 250 mls @ 250 mls/ hr IVPB DAILY [facility] Last Admin: 09/01/18 10:43 Dose: 250 mls/hr Ceftriaxone Sodium 1 gm/ (Dextrose) 50 mls @ 100 mls/hr IVPB DAILY [facility]; Protocol Last Admin: 09/01/18 09:43 Dose: 100 mls/hr Insulin Aspart (Novolog Vial Sliding Scale -) 1 vial SQ ACHS [facility]; Protocol Last Admin: 09/01/18 12:12 Dose: Not Given Insulin Detemir (Levemir Vial) 20 units SQ DAILY@0700 [facility] Last Admin: 09/01/18 06:28 Dose: 20 units Lidocaine (Lidoderm Patch -) 1 patch TP DAILY@0000 [facility] Last Admin: 09/01/18 00:01 Dose: 1 patch Melatonin (Melatonin) 5 mg PO HS PRN PRN Reason: INSOMNIA Last Admin: 08/31/18 22:04 Dose: 5 mg Miscellaneous (Lidoderm Patch Removal) 1 each MC DAILY@1200 [facility] Last Admin: 09/01/18 14:06 Dose: 1 each Morphine Sulfate (Morphine Sulfate) 2 mg IVPUSH Q4H PRN PRN Reason: PAIN LEVEL 1-5 Pantoprazole Sodium (Protonix -) 40 mg PO DAILY [facility] Last Admin: 09/01/18 09:43 Dose: 40 mg - Objective Vital Signs: Vital Signs Temperature 99.4 F 09/01/18 15:00 Pulse Rate 74 09/01/18 15:00 Respiratory Rate 20 09/01/18 15:00 Blood Pressure 168/102 H 09/01/18 15:00 O2 Sat by Pulse Oximetry (%) 94 L 09/01/18 11:00 Constitutional: Yes: Calm Eyes: Yes: Conjunctiva Clear HENT: Yes: Atraumatic Neck: Yes: Supple Cardiovascular: Yes: S1, S2 Respiratory: Yes: CTA Bilaterally, On Nasal O2 Gastrointestinal: Yes: Soft Genitourinary: Yes: WNL Musculoskeletal: Yes: WNL Edema: No Neurological: Yes: Oriented Psychiatric: Yes: Oriented Labs: CBC, BMP 09/01/18 10:35 09/01/18 10:35 Problem List - Problems (1) CKD (chronic kidney disease) Code(s): N18.9 - CHRONIC KIDNEY DISEASE, UNSPECIFIED (2) Anemia Code(s): D64.9 - ANEMIA, UNSPECIFIED (3) Community acquired pneumonia Code(s): J18.9 - PNEUMONIA, UNSPECIFIED ORGANISM Qualifiers: Laterality: right Lung location: middle lobe of lung Qualified Code(s): J18.1 - Lobar pneumonia, unspecified organism (4) HTN (hypertension) Code(s): I10 - ESSENTIAL (PRIMARY) HYPERTENSION Assessment/Plan Current Medications Generic Name Dose Route Start Last Admin Trade Name Freq PRN Reason Stop Dose Admin Acetaminophen 650 mg 08/28/18 20:29 08/30/18 20:35 Tylenol - PO 650 mg Q6H PRN Administration PAIN OR FEVER Albuterol Sulfate 1 amp 08/30/18 10:37 08/30/18 11:15 Ventolin 0.083% Nebulizer Soln - NEB 1 amp Q4H PRN Administration SHORT OF BREATH/WHEEZING Albuterol/Ipratropium 1 amp 09/01/18 08:00 09/01/18 13:30 Duoneb - NEB 1 amp RTID [facility] Administration Amlodipine Besylate 10 mg 08/31/18 13:48 09/01/18 09:43 Norvasc - PO 10 mg DAILY [facility] Administration Aspirin 81 mg 08/28/18 10:00 09/01/18 09:43 Ecotrin - PO 81 mg DAILY [facility] Administration Atorvastatin Calcium 20 mg 08/28/18 22:00 08/31/18 22:04 Lipitor - PO 20 mg HS [facility] Administration Budesonide/Formoterol Fumarate 2 puff 09/01/18 13:45 09/01/18 14:36 Symbicort 160/4.5mcg - IH 2 puff BID [facility] Administration Carvedilol 6.25 mg 08/31/18 13:48 09/01/18 09:43 Coreg - PO 6.25 mg BID [facility] Administration Guaifenesin 10 ml 08/27/18 19:28 08/31/18 17:29 Robitussin Dm - PO 10 ml Q6H PRN Administration COUGH Heparin Sodium (Porcine) 5,000 unit 08/27/18 22:00 09/01/18 09:43 Heparin - SQ 5,000 unit BID [facility] Administration Azithromycin 500 mg in 250 mls @ 250 mls/hr 08/28/18 10:00 09/01/18 10:43 Zithromax 500mg Ivpb (Pre-Docked) IVPB 250 mls/hr DAILY [facility] Administration Ceftriaxone Sodium 1 gm/ 50 mls @ 100 mls/hr 08/30/18 13:30 09/01/18 09:43 Dextrose IVPB 100 mls/hr DAILY [facility] Administration Protocol Insulin Aspart 1 vial 08/27/18 22:00 09/01/18 12:12 Novolog Vial Sliding Scale - SQ Not Given ACHS [facility] Protocol Insulin Detemir 20 units 08/28/18 10:00 09/01/18 06:28 Levemir Vial SQ 20 units DAILY@0700 [facility] Administration Lidocaine 1 patch 09/01/18 00:00 09/01/18 00:01 Lidoderm Patch - TP 1 patch DAILY@0000 [facility] Administration Melatonin 5 mg 08/28/18 20:29 08/31/18 22:04 Melatonin PO 5 mg HS PRN Administration INSOMNIA Miscellaneous 1 each 09/01/18 12:00 09/01/18 14:06 Lidoderm Patch Removal MC 1 each DAILY@1200 [facility] Administration Morphine Sulfate 2 mg 08/29/18 21:36 Morphine Sulfate IVPUSH Q4H PRN PAIN LEVEL 1-5 Pantoprazole Sodium 40 mg 08/28/18 10:00 09/01/18 09:43 Protonix - PO 40 mg DAILY [facility] Administration Impression 1. CKD with unclear baseline 2. HTN 3. DM 4. HLD 5. possible lung mass 6. nephrotic range proteinuria 7. hyperkalemia Plan - follow renal workup - repeat labs in am - discussed low potassium diet - increase coreg dose - may need kidney biopsy when more stable - pulmonary input appreciated
[2018-09-01] MEDS ORDERED: INSULIN (NOVOLOG) ASPART 100 UNITS/ML 10ML VIAL ONE ×2 (17:41→20:31)
[2018-09-01 19:12] LABS: HEP A AB, IGM Negative (Negative); HEP B CORE AB, TOT Negative (Negative)
[2018-09-01] MEDS: CARVEDILOL 12.5 MG TABLET (FP) PO SCH (21:19)
[2018-09-01] MEDS: ATORVASTATIN CA 20 MG TABLET (FP) PO SCH (21:24)
[2018-09-02] MEDS: LIDOCAINE 5% TOPICAL PATCH TP SCH ×2 (01:14→23:40)
[2018-09-02] MEDS: ALBUTEROL SO4 0.083% IH SOL 2.5 MG/3 ML VIAL.NEB. NEB PRN (03:15)
[2018-09-02] MEDS: INSULIN SLIDING SCALE (NOVOLOG) 1 VIAL SQ SCH ×4 (06:03→21:29)
[2018-09-02] MEDS: INSULIN (LEVEMIR) 100 UNITS/ML UNITS SQ SCH (06:04)
--- NOTE | 2018-09-02 07:41 | PN ---
Progress Note, Physician Chief Complaint: shortness of breath, abdominal pain from coughing History of Present Illness: This is a 58 y/o man with a PMHx of HTN, DM, Renal Insufficiency, Anemia. Who presents to the ED with his family for SOB, fever, productive yellow cough, elevated BP and BS. The patient is Citizen [place] speaking and the daughter translated. Per the daughter the patient had subjective fevers of 103 at home yesterday and he was having difficulty breathing and generalized bodyaches. Per the daughter patient was suppose to have a procedure for a "artery blockage" but it was cancelled due to his kidney function. Patient missed his home meds today due to feeling ill. Patient denies dizziness, CP, palpitations, AP, N/V/D , constipation, dysuria. Patient had recent travel [place] 2 months ago. - Current Medication List Current Medications: Active Medications Acetaminophen (Tylenol -) 650 mg PO Q6H PRN PRN Reason: PAIN OR FEVER Last Admin: 08/30/18 20:35 Dose: 650 mg Albuterol Sulfate (Ventolin 0.083% Nebulizer Soln -) 1 amp NEB Q4H PRN PRN Reason: SHORT OF BREATH/WHEEZING Last Admin: 09/02/18 03:15 Dose: 1 amp Albuterol/Ipratropium (Duoneb -) 1 amp NEB RTID [facility] Last Admin: 09/01/18 20:16 Dose: 1 amp Amlodipine Besylate (Norvasc -) 10 mg PO DAILY [facility] Last Admin: 09/01/18 09:43 Dose: 10 mg Aspirin (Ecotrin -) 81 mg PO DAILY [facility] Last Admin: 09/01/18 09:43 Dose: 81 mg Atorvastatin Calcium (Lipitor -) 20 mg PO HS [facility] Last Admin: 09/01/18 21:24 Dose: 20 mg Budesonide/Formoterol Fumarate (Symbicort 160/4.5mcg -) 2 puff IH BID [facility] Last Admin: 09/01/18 21:43 Dose: 2 puff Carvedilol (Coreg -) 12.5 mg PO BID [facility] Last Admin: 09/01/18 21:19 Dose: 12.5 mg Guaifenesin (Robitussin Dm -) 10 ml PO Q6H PRN PRN Reason: COUGH Last Admin: 08/31/18 17:29 Dose: 10 ml Heparin Sodium (Porcine) (Heparin -) 5,000 unit SQ BID [facility] Last Admin: 09/01/18 21:20 Dose: 5,000 unit Azithromycin (Zithromax 500mg Ivpb (Pre-Docked)) 500 mg in 250 mls @ 250 mls/ hr IVPB DAILY [facility] Last Admin: 09/01/18 10:43 Dose: 250 mls/hr Ceftriaxone Sodium 1 gm/ (Dextrose) 50 mls @ 100 mls/hr IVPB DAILY [facility]; Protocol Last Admin: 09/01/18 09:43 Dose: 100 mls/hr Insulin Aspart (Novolog Vial Sliding Scale -) 1 vial SQ ACHS [facility]; Protocol Last Admin: 09/02/18 06:03 Dose: Not Given Insulin Detemir (Levemir Vial) 20 units SQ DAILY@0700 [facility] Last Admin: 09/02/18 06:04 Dose: 20 units Lidocaine (Lidoderm Patch -) 1 patch TP DAILY@0000 [facility] Last Admin: 09/02/18 01:14 Dose: 1 patch Melatonin (Melatonin) 5 mg PO HS PRN PRN Reason: INSOMNIA Last Admin: 08/31/18 22:04 Dose: 5 mg Miscellaneous (Lidoderm Patch Removal) 1 each MC DAILY@1200 [facility] Last Admin: 09/01/18 14:06 Dose: 1 each Pantoprazole Sodium (Protonix -) 40 mg PO DAILY [facility] Last Admin: 09/01/18 09:43 Dose: 40 mg - Objective Vital Signs: Vital Signs Temperature 99.3 F 09/02/18 06:00 Pulse Rate 87 09/02/18 06:00 Respiratory Rate 20 09/02/18 06:00 Blood Pressure 178/84 H 09/02/18 06:00 O2 Sat by Pulse Oximetry (%) 93 L 09/01/18 22:15 Constitutional: Yes: Well Nourished, No Distress, Calm Eyes: Yes: WNL, Conjunctiva Clear, EOM Intact HENT: Yes: WNL, Atraumatic, Normocephalic Neck: Yes: WNL, Supple, Trachea Midline Cardiovascular: Yes: WNL, Regular Rate and Rhythm Respiratory: Yes: WNL, Regular, CTA Bilaterally, Diminished (at bases) Gastrointestinal: Yes: WNL, Normal Bowel Sounds, Soft, Other (abdmonial muscle pain secondary to coughing) ...Rectal Exam: Yes: Deferred Genitourinary: Yes: WNL Musculoskeletal: Yes: WNL Extremities: Yes: WNL Edema: No Peripheral Pulses WNL: Yes Integumentary: Yes: WNL Neurological: Yes: WNL, Alert, Oriented ...Motor Strength: WNL Psychiatric: Yes: WNL, Alert, Oriented - ....Imaging Chest X-ray: Report Reviewed, Image Reviewed Cat Scan: Image Reviewed Problem List - Problems (1) Community acquired pneumonia Assessment/Plan: continue azithromycin and ceftriaxone -will consult with pulm to change abx to augmentin 875MG PO BID 7D -cultures as follows: Bcx NGTD, Sputum for AFB negatie x 3, legionalla negative , sputum cx 08/31 with [facility], GPB - Isolation precautions lifted -Quantiferon Gold pending -continue bronchdilators -supplemental O2 to mainatin sat >92 % -needs F/U chest CT post discharge Code(s): J18.9 - PNEUMONIA, UNSPECIFIED ORGANISM Qualifiers: Laterality: right Lung location: middle lobe of lung Qualified Code(s): J18.1 - Lobar pneumonia, unspecified organism (2) HLD (hyperlipidemia) Assessment/Plan: continue home nagel of atrovastatin low cholesterol/low fat diet Code(s): E78.5 - HYPERLIPIDEMIA, UNSPECIFIED (3) HTN (hypertension) Assessment/Plan: remains hypertensive increase home dose of carvedilol to 25mg bid, will continue to monitor Code(s): I10 - ESSENTIAL (PRIMARY) HYPERTENSION (4) [id number] kidney injury Assessment/Plan: Cr 3.2 now,unclear to baseline -cont to monitor renal function - renal ultrasound reviewed by Dr Martin and no acute pathology seen -urine lytes: Una95, Ucr77.5, FeNa 2.95%, suggestive or pre-renal state given any absence of pathology on renal US -IVF stopped, continue to monitor volume status -renal biopsy when more stable Code(s): N17.9 - ACUTE KIDNEY FAILURE, UNSPECIFIED; N18.9 - CHRONIC KIDNEY DISEASE, UNSPECIFIED (5) Pleuritic chest pain Assessment/Plan: MSO4/tylenol PRN for pain encourage patient to use a pillow to splint when coughing Code(s): R07.81 - PLEURODYNIA (6) Prophylactic measure Assessment/Plan: FEN low fat/cholesterol diabetic diet no need for IVF at this time daily CMP DVT Proph heparin 5000 u bid Dispo mainatin as in patient full code discharge planning Code(s): Z29.9 - ENCOUNTER FOR PROPHYLACTIC MEASURES, UNSPECIFIED (7) Diabetes Assessment/Plan: BGM AC/qhs novolog sliding scale continue am levemir Code(s): E11.9 - TYPE 2 DIABETES MELLITUS WITHOUT COMPLICATIONS (8) Lung mass Assessment/Plan: BL pleural effusion, RML opacity will need further imaging as outpt SPutum for AFB neagtive x QUANTIFERON pending & HIV negative Code(s): R91.8 - OTHER NONSPECIFIC ABNORMAL FINDING OF LUNG FIELD Visit type - Emergency Visit Emergency Visit: Yes ED Registration Date: 08/27/18 Care time: The patient presented to the Emergency Department on the above date and was hospitalized for further evaluation of their emergent condition. - New Patient This patient is new to me today: No - Critical Care Critical Care patient: No - Discharge Referral Referred to [facility] Med P.C.: No
[2018-09-02 07:43] LABS: EOS % 4.4 % (0-4.5); HEMATOCRIT 23.1 % (35.4-49); HEMOGLOBIN 7.8 GM/dL (11.7-16.9); LYMPH % 20.6 % (8-40); MCH 28.8 pg (25.7-33.7); MCHC 33.8 g/dl (32.0-35.9); MEAN CELL VOLUME 85.1 fl (80-96); MEAN PLT VOLUME 8.8 fl (7.5-11.1); MONO % 9.2 % (3.8-10.2); NEUT % 64.8 % (42.8-82.8); RBC 2.72 M/mm3 (4.00-5.60); RDW 14.1 % (11.9-15.9)
[2018-09-02 07:51] LABS: ALBUMIN 2.5 g/dl (3.4-5.0); BILIRUBIN,TOTAL 0.3 mg/dL (0.2-1); BLOOD UREA NITROGEN 35.6 mg/dL (7-18); CALCIUM 8.1 mg/dL (8.5-10.1); CREATININE 3.2 mg/dL (0.55-1.3); PHOSPHOROUS 3.7 mg/dL (2.5-4.9); POTASSIUM 5.2 mmol/L (3.5-5.1); TOT PROT 6.1 g/dl (6.4-8.2)
[2018-09-02] MEDS: ALBUTEROL SO4 2.5/IPRATROPIUM 0.5 INH SOL 3 ML VIAL.NEB. NEB SCH ×3 (07:52→21:45)
[2018-09-02 08:12] LABS: PLATELET COUNT 204 K/MM3 (134-434)
[2018-09-02] MEDS ORDERED: DEXTROSE 5%-WATER - 50 ML IVPB ONE (08:43)
[2018-09-02] MEDS ORDERED: cefTRIAXone SODIUM 1 GM VIAL ONE (08:43)
[2018-09-02] MEDS: CEFTRIAXONE 1 GM in DEXTROSE 5%-WATER - 50 ML IVPB SCH (09:06)
[2018-09-02] MEDS: HEPARIN NA (PORCINE) 5,000 UNITS/ML 1ML VIAL SQ SCH ×2 (09:07→21:27)
[2018-09-02] MEDS: ASPIRIN COATED 81 MG TABLET.EC PO SCH (09:07)
[2018-09-02] MEDS: PANTOPRAZOLE 40 MG TABLET (FP) PO SCH (09:07)
[2018-09-02] MEDS: amLODIPine BESYLATE 10 MG TABLET (FP) PO SCH (09:07)
[2018-09-02] MEDS: CARVEDILOL 12.5 MG TABLET (FP) PO SCH (09:07)
[2018-09-02] MEDS: BUDESONIDE/FORMETEROL FUMARATE 160/4.5 mcg INHALER IH SCH ×3 (09:08→21:31)
[2018-09-02 10:10] LABS: ANTIGLOMERULAR BASEMENT MEN.AB 4 units (0-20)
[2018-09-02] MEDS: AZITHROMYCIN IVPB 500 MG/250 ML BAG IVPB SCH (10:26)
--- NOTE | 2018-09-02 11:29 | EKG ---
Test Reason : Blood Pressure : / mmHG Vent. Rate : 086 BPM Atrial Rate : 086 BPM P-R Int : 154 ms QRS Dur : 072 ms QT Int : 362 ms P-R-T Axes : 054 017 097 degrees QTc Int : 433 ms NORMAL SINUS RHYTHM NONSPECIFIC T WAVE ABNORMALITY ABNORMAL ECG WHEN COMPARED WITH ECG OF 27-AUG-2018 19:43, NO SIGNIFICANT CHANGE WAS FOUND Confirmed by JUAN ONEIL MD ([id number]) on 09/02/2018 11:29:37 AM Referred By: Confirmed By:JUAN ONEIL MD
--- NOTE | 2018-09-02 13:11 | PN ---
Progress Note, Physician History of Present Illness: Pt seen and examined at bedside. He is awake and alert. He denies shortness of breath. - Current Medication List Current Medications: Active Medications Acetaminophen (Tylenol -) 650 mg PO Q6H PRN PRN Reason: PAIN OR FEVER Last Admin: 08/30/18 20:35 Dose: 650 mg Albuterol Sulfate (Ventolin 0.083% Nebulizer Soln -) 1 amp NEB Q4H PRN PRN Reason: SHORT OF BREATH/WHEEZING Last Admin: 09/02/18 03:15 Dose: 1 amp Albuterol/Ipratropium (Duoneb -) 1 amp NEB RTID [facility] Last Admin: 09/02/18 07:52 Dose: 1 amp Amlodipine Besylate (Norvasc -) 10 mg PO DAILY [facility] Last Admin: 09/02/18 09:07 Dose: 10 mg Aspirin (Ecotrin -) 81 mg PO DAILY [facility] Last Admin: 09/02/18 09:07 Dose: 81 mg Atorvastatin Calcium (Lipitor -) 20 mg PO HS [facility] Last Admin: 09/01/18 21:24 Dose: 20 mg Budesonide/Formoterol Fumarate (Symbicort 160/4.5mcg -) 2 puff IH BID [facility] Last Admin: 09/02/18 09:13 Dose: Not Given Carvedilol (Coreg -) 12.5 mg PO BID [facility] Last Admin: 09/02/18 09:07 Dose: 12.5 mg Guaifenesin (Robitussin Dm -) 10 ml PO Q6H PRN PRN Reason: COUGH Last Admin: 08/31/18 17:29 Dose: 10 ml Heparin Sodium (Porcine) (Heparin -) 5,000 unit SQ BID [facility] Last Admin: 09/02/18 09:07 Dose: 5,000 unit Azithromycin (Zithromax 500mg Ivpb (Pre-Docked)) 500 mg in 250 mls @ 250 mls/ hr IVPB DAILY [facility] Last Admin: 09/02/18 10:26 Dose: 250 mls/hr Ceftriaxone Sodium 1 gm/ (Dextrose) 50 mls @ 100 mls/hr IVPB DAILY [facility]; Protocol Last Admin: 09/02/18 09:06 Dose: 100 mls/hr Insulin Aspart (Novolog Vial Sliding Scale -) 1 vial SQ ACHS [facility]; Protocol Last Admin: 09/02/18 06:03 Dose: Not Given Insulin Detemir (Levemir Vial) 20 units SQ DAILY@0700 [facility] Last Admin: 09/02/18 06:04 Dose: 20 units Lidocaine (Lidoderm Patch -) 1 patch TP DAILY@0000 [facility] Last Admin: 09/02/18 01:14 Dose: 1 patch Melatonin (Melatonin) 5 mg PO HS PRN PRN Reason: INSOMNIA Last Admin: 08/31/18 22:04 Dose: 5 mg Miscellaneous (Lidoderm Patch Removal) 1 each MC DAILY@1200 [facility] Last Admin: 09/01/18 14:06 Dose: 1 each Pantoprazole Sodium (Protonix -) 40 mg PO DAILY [facility] Last Admin: 09/02/18 09:07 Dose: 40 mg - Objective Vital Signs: Vital Signs Temperature 99.3 F 09/02/18 06:00 Pulse Rate 87 09/02/18 06:00 Respiratory Rate 20 09/02/18 06:00 Blood Pressure 178/84 H 09/02/18 06:00 O2 Sat by Pulse Oximetry (%) 93 L 09/01/18 22:15 Constitutional: Yes: Calm Eyes: Yes: Conjunctiva Clear HENT: Yes: Atraumatic Neck: Yes: Supple Cardiovascular: Yes: S1, S2 Respiratory: Yes: CTA Bilaterally, On Nasal O2 Gastrointestinal: Yes: Soft Genitourinary: Yes: WNL Musculoskeletal: Yes: WNL Edema: No Integumentary: Yes: WNL Neurological: Yes: Oriented Psychiatric: Yes: Oriented Labs: CBC, BMP 09/02/18 06:08 09/02/18 06:08 Problem List - Problems (1) CKD (chronic kidney disease) Code(s): N18.9 - CHRONIC KIDNEY DISEASE, UNSPECIFIED (2) Anemia Code(s): D64.9 - ANEMIA, UNSPECIFIED (3) Community acquired pneumonia Code(s): J18.9 - PNEUMONIA, UNSPECIFIED ORGANISM Qualifiers: Laterality: right Lung location: middle lobe of lung Qualified Code(s): J18.1 - Lobar pneumonia, unspecified organism (4) HTN (hypertension) Code(s): I10 - ESSENTIAL (PRIMARY) HYPERTENSION Assessment/Plan Current Medications Generic Name Dose Route Start Last Admin Trade Name Freq PRN Reason Stop Dose Admin Acetaminophen 650 mg 08/28/18 20:29 08/30/18 20:35 Tylenol - PO 650 mg Q6H PRN Administration PAIN OR FEVER Albuterol Sulfate 1 amp 08/30/18 10:37 09/02/18 03:15 Ventolin 0.083% Nebulizer Soln - NEB 1 amp Q4H PRN Administration SHORT OF BREATH/WHEEZING Albuterol/Ipratropium 1 amp 09/01/18 08:00 09/02/18 07:52 Duoneb - NEB 1 amp RTID [facility] Administration Amlodipine Besylate 10 mg 08/31/18 13:48 09/02/18 09:07 Norvasc - PO 10 mg DAILY [facility] Administration Aspirin 81 mg 08/28/18 10:00 09/02/18 09:07 Ecotrin - PO 81 mg DAILY [facility] Administration Atorvastatin Calcium 20 mg 08/28/18 22:00 09/01/18 21:24 Lipitor - PO 20 mg HS [facility] Administration Budesonide/Formoterol Fumarate 2 puff 09/01/18 13:45 09/02/18 09:13 Symbicort 160/4.5mcg - IH Not Given BID [facility] Carvedilol 12.5 mg 09/01/18 22:00 09/02/18 09:07 Coreg - PO 12.5 mg BID [facility] Administration Guaifenesin 10 ml 08/27/18 19:28 08/31/18 17:29 Robitussin Dm - PO 10 ml Q6H PRN Administration COUGH Heparin Sodium (Porcine) 5,000 unit 08/27/18 22:00 09/02/18 09:07 Heparin - SQ 5,000 unit BID [facility] Administration Azithromycin 500 mg in 250 mls @ 250 mls/hr 08/28/18 10:00 09/02/18 10:26 Zithromax 500mg Ivpb (Pre-Docked) IVPB 250 mls/hr DAILY [facility] Administration Ceftriaxone Sodium 1 gm/ 50 mls @ 100 mls/hr 08/30/18 13:30 09/02/18 09:06 Dextrose IVPB 100 mls/hr DAILY [facility] Protocol Insulin Aspart 1 vial 08/27/18 22:00 09/02/18 06:03 Novolog Vial Sliding Scale - SQ Not Given ACHS [facility] Protocol Insulin Detemir 20 units 08/28/18 10:00 09/02/18 06:04 Levemir Vial SQ 20 units DAILY@0700 [facility] Administration Lidocaine 1 patch 06/27/19 00:00 09/02/18 01:14 Lidoderm Patch - TP 1 patch DAILY@0000 [facility] Administration Melatonin 5 mg 08/28/18 20:29 08/31/18 22:04 Melatonin PO 5 mg HS PRN Administration INSOMNIA Miscellaneous 1 each 09/01/18 12:00 09/01/18 14:06 Lidoderm Patch Removal MC 1 each DAILY@1200 [facility] Administration Pantoprazole Sodium 40 mg 08/28/18 10:00 09/02/18 09:07 Protonix - PO 40 mg DAILY [facility] Administration Impression 1. CKD with unclear baseline 2. HTN 3. DM 4. HLD 5. possible lung mass 6. nephrotic range proteinuria 7. hyperkalemia Plan - low potassium diet - monitor renal function - unable to start yasmin or arb at this time - pulm workup in progress - will need kidney biopsy once stable - monitor bp on 12.5 of coreg and titrate to 25 bid if bp is not controlled
[2018-09-02] MEDS: LIDOCAINE PATCH REMOVAL MC SCH (13:12)
--- NOTE | 2018-09-02 13:19 | PN ---
Progress Note, Physician History of Present Illness: AWAKE, ALERT OOB IN CHAIR OCCASIONAL COUGH NON PRODUCTIVE NO HEMOPTYSIS C/O EPIGASTRIC PAIN WITH COUGH NO F/C - Current Medication List Current Medications: Active Medications Acetaminophen (Tylenol -) 650 mg PO Q6H PRN PRN Reason: PAIN OR FEVER Last Admin: 08/30/18 20:35 Dose: 650 mg Albuterol Sulfate (Ventolin 0.083% Nebulizer Soln -) 1 amp NEB Q4H PRN PRN Reason: SHORT OF BREATH/WHEEZING Last Admin: 09/02/18 03:15 Dose: 1 amp Albuterol/Ipratropium (Duoneb -) 1 amp NEB RTID [facility] Last Admin: 09/02/18 07:52 Dose: 1 amp Amlodipine Besylate (Norvasc -) 10 mg PO DAILY [facility] Last Admin: 09/02/18 09:07 Dose: 10 mg Aspirin (Ecotrin -) 81 mg PO DAILY [facility] Last Admin: 09/02/18 09:07 Dose: 81 mg Atorvastatin Calcium (Lipitor -) 20 mg PO HS [facility] Last Admin: 09/01/18 21:24 Dose: 20 mg Budesonide/Formoterol Fumarate (Symbicort 160/4.5mcg -) 2 puff IH BID [facility] Last Admin: 09/02/18 09:13 Dose: Not Given Carvedilol (Coreg -) 12.5 mg PO BID [facility] Last Admin: 09/02/18 09:07 Dose: 12.5 mg Guaifenesin (Robitussin Dm -) 10 ml PO Q6H PRN PRN Reason: COUGH Last Admin: 08/31/18 17:29 Dose: 10 ml Heparin Sodium (Porcine) (Heparin -) 5,000 unit SQ BID [facility] Last Admin: 09/02/18 09:07 Dose: 5,000 unit Azithromycin (Zithromax 500mg Ivpb (Pre-Docked)) 500 mg in 250 mls @ 250 mls/ hr IVPB DAILY [facility] Last Admin: 09/02/18 10:26 Dose: 250 mls/hr Ceftriaxone Sodium 1 gm/ (Dextrose) 50 mls @ 100 mls/hr IVPB DAILY [facility]; Protocol Last Admin: 09/02/18 09:06 Dose: 100 mls/hr Insulin Aspart (Novolog Vial Sliding Scale -) 1 vial SQ ACHS [facility]; Protocol Last Admin: 09/02/18 13:12 Dose: 2 units Insulin Detemir (Levemir Vial) 20 units SQ DAILY@0700 [facility] Last Admin: 09/02/18 06:04 Dose: 20 units Lidocaine (Lidoderm Patch -) 1 patch TP DAILY@0000 [facility] Last Admin: 09/02/18 01:14 Dose: 1 patch Melatonin (Melatonin) 5 mg PO HS PRN PRN Reason: INSOMNIA Last Admin: 08/31/18 22:04 Dose: 5 mg Miscellaneous (Lidoderm Patch Removal) 1 each MC DAILY@1200 [facility] Last Admin: 09/02/18 13:12 Dose: 1 each Pantoprazole Sodium (Protonix -) 40 mg PO DAILY [facility] Last Admin: 09/02/18 09:07 Dose: 40 mg - Objective Vital Signs: Vital Signs Temperature 99.3 F 09/02/18 06:00 Pulse Rate 87 09/02/18 06:00 Respiratory Rate 20 09/02/18 06:00 Blood Pressure 178/84 H 09/02/18 06:00 O2 Sat by Pulse Oximetry (%) 93 L 09/01/18 22:15 Constitutional: Yes: No Distress Cardiovascular: Yes: Regular Rate and Rhythm Respiratory: Yes: Diminished, Other (DECREASED BS BASES) Gastrointestinal: Yes: Normal Bowel Sounds, Soft. No: Tenderness Labs: CBC, BMP 09/02/18 06:08 09/02/18 06:08 Assessment/Plan MASS-LIKE RUL CONSOLIDATION/ LOCULATED FLUID COLLECTION RENAL INSUFICIENCY SPUTUM [employer] (-) X 3 D/C AFB PRECAUTIONS CONTINUE CEFTRIXONE F/U CXR IF OK WITH PULM SUBSTITUTE AUGMENTIN 875MG PO BID 7D NEEDS F/U CT CHEST POST DISCHARGE TO DOCUMENT CLEARING OF CONSOLIDATION/ LOCULATED FLUID
--- NOTE | 2018-09-02 15:44 | PN ---
Progress Note, Physician History of Present Illness: pulmonary alert,feeling better,-sob at rest, nagel+ cough - Current Medication List Current Medications: Active Medications Acetaminophen (Tylenol -) 650 mg PO Q6H PRN PRN Reason: PAIN OR FEVER Last Admin: 08/30/18 20:35 Dose: 650 mg Albuterol Sulfate (Ventolin 0.083% Nebulizer Soln -) 1 amp NEB Q4H PRN PRN Reason: SHORT OF BREATH/WHEEZING Last Admin: 09/02/18 03:15 Dose: 1 amp Albuterol/Ipratropium (Duoneb -) 1 amp NEB RTID [facility] Last Admin: 09/02/18 13:53 Dose: 1 amp Amlodipine Besylate (Norvasc -) 10 mg PO DAILY [facility] Last Admin: 09/02/18 09:07 Dose: 10 mg Aspirin (Ecotrin -) 81 mg PO DAILY [facility] Last Admin: 09/02/18 09:07 Dose: 81 mg Atorvastatin Calcium (Lipitor -) 20 mg PO HS [facility] Last Admin: 09/01/18 21:24 Dose: 20 mg Budesonide/Formoterol Fumarate (Symbicort 160/4.5mcg -) 2 puff IH BID [facility] Last Admin: 09/02/18 09:13 Dose: Not Given Carvedilol (Coreg -) 25 mg PO BID [facility] Guaifenesin (Robitussin Dm -) 10 ml PO Q6H PRN PRN Reason: COUGH Last Admin: 08/31/18 17:29 Dose: 10 ml Heparin Sodium (Porcine) (Heparin -) 5,000 unit SQ BID [facility] Last Admin: 09/02/18 09:07 Dose: 5,000 unit Ceftriaxone Sodium 1 gm/ (Dextrose) 50 mls @ 100 mls/hr IVPB DAILY [facility]; Protocol Last Admin: 09/02/18 09:06 Dose: 100 mls/hr Insulin Aspart (Novolog Vial Sliding Scale -) 1 vial SQ ACHS [facility]; Protocol Last Admin: 09/02/18 13:12 Dose: 2 units Insulin Detemir (Levemir Vial) 20 units SQ DAILY@0700 [facility] Last Admin: 09/02/18 06:04 Dose: 20 units Lidocaine (Lidoderm Patch -) 1 patch TP DAILY@0000 [facility] Last Admin: 09/02/18 01:14 Dose: 1 patch Melatonin (Melatonin) 5 mg PO HS PRN PRN Reason: INSOMNIA Last Admin: 08/31/18 22:04 Dose: 5 mg Miscellaneous (Lidoderm Patch Removal) 1 each MC DAILY@1200 [facility] Last Admin: 09/02/18 13:12 Dose: 1 each Pantoprazole Sodium (Protonix -) 40 mg PO DAILY [facility] Last Admin: 09/02/18 09:07 Dose: 40 mg - Objective Vital Signs: Vital Signs Temperature 99.3 F 09/02/18 06:00 Pulse Rate 87 09/02/18 06:00 Respiratory Rate 20 09/02/18 06:00 Blood Pressure 178/84 H 09/02/18 06:00 O2 Sat by Pulse Oximetry (%) 93 L 09/01/18 22:15 Constitutional: Yes: Well Nourished, Calm Eyes: Yes: WNL HENT: Yes: WNL Neck: Yes: WNL Cardiovascular: Yes: Regular Rate and Rhythm, S1, S2 Respiratory: Yes: Diminished Gastrointestinal: Yes: Normal Bowel Sounds, Soft Extremities: Yes: WNL Edema: No Labs: CBC, BMP 09/02/18 06:08 09/02/18 06:08 Problem List - Problems (1) Anemia Code(s): D64.9 - ANEMIA, UNSPECIFIED (2) CKD (chronic kidney disease) Code(s): N18.9 - CHRONIC KIDNEY DISEASE, UNSPECIFIED (3) Community acquired pneumonia Code(s): J18.9 - PNEUMONIA, UNSPECIFIED ORGANISM Qualifiers: Laterality: right Lung location: middle lobe of lung Qualified Code(s): J18.1 - Lobar pneumonia, unspecified organism (4) HLD (hyperlipidemia) Code(s): E78.5 - HYPERLIPIDEMIA, UNSPECIFIED (5) HTN (hypertension) Code(s): I10 - ESSENTIAL (PRIMARY) HYPERTENSION (6) Bronchitis Code(s): J40 - BRONCHITIS, NOT SPECIFIED ACUTE OR CHRONIC Assessment/Plan A/P r/o Pneumonia Acute on Chronic Renal Failure HTN DM Hyperlipidmemia Anemia - antibiotics - CT chest findings suggestive of fluid in the fissue, will need outpt f/u of chest imaging to ensure resolution - DVT prophylaxis - normal transfusion threshold DR MARTINS
[2018-09-02] MEDS: guaiFENesin/D-METHORPHAN HB 10 ML UNIT-DOSE CUPS PO PRN (18:06)
[2018-09-02 18:09] LABS: ATYPICAL pANCA <1:20 titer (Neg:<1:20); C-ANCA <1:20 titer (Neg:<1:20); P-ANCA <1:20 titer (Neg:<1:20)
[2018-09-02] MEDS: ATORVASTATIN CA 20 MG TABLET (FP) PO SCH (21:26)
[2018-09-02] MEDS: CARVEDILOL 25 MG TABLET (FP) PO SCH (21:26)
[2018-09-03] MEDS: INSULIN SLIDING SCALE (NOVOLOG) 1 VIAL SQ SCH ×4 (06:03→21:08)
[2018-09-03] MEDS: INSULIN (LEVEMIR) 100 UNITS/ML UNITS SQ SCH (06:03)
[2018-09-03] MEDS: ALBUTEROL SO4 2.5/IPRATROPIUM 0.5 INH SOL 3 ML VIAL.NEB. NEB SCH ×3 (07:30→20:30)
[2018-09-03 07:34] LABS: BASO % 0.4 % (0-2.0); EOS % 6.1 % (0-4.5); LYMPH % 23.8 % (8-40); MCH 28.4 pg (25.7-33.7); MCHC 33.2 g/dl (32.0-35.9); MEAN CELL VOLUME 85.6 fl (80-96); MEAN PLT VOLUME 8.5 fl (7.5-11.1); MONO % 11.7 % (3.8-10.2); PLATELET COUNT 216 K/MM3 (134-434); RDW 13.8 % (11.9-15.9); WHITE BLOOD COUNT 4.6 K/mm3 (4.0-10.0)
[2018-09-03 07:59] LABS: ALBUMIN 2.6 g/dl (3.4-5.0); BILIRUBIN,TOTAL 0.3 mg/dL (0.2-1); BLOOD UREA NITROGEN 39.6 mg/dL (7-18); CALCIUM 8.2 mg/dL (8.5-10.1); CREATININE 3.2 mg/dL (0.55-1.3); MAGNESIUM 2.3 mg/dL (1.8-2.4); POTASSIUM 5.2 mmol/L (3.5-5.1); TOT PROT 6.3 g/dl (6.4-8.2)
[2018-09-03] MEDS ORDERED: cefTRIAXone SODIUM 1 GM VIAL ONE (08:59)
[2018-09-03] MEDS ORDERED: DEXTROSE 5%-WATER - 50 ML IVPB ONE (08:59)
[2018-09-03] MEDS: CEFTRIAXONE 1 GM in DEXTROSE 5%-WATER - 50 ML IVPB SCH (09:05)
[2018-09-03] MEDS: CARVEDILOL 25 MG TABLET (FP) PO SCH ×2 (09:05→21:09)
[2018-09-03] MEDS: BUDESONIDE/FORMETEROL FUMARATE 160/4.5 mcg INHALER IH SCH ×2 (09:05→21:08)
[2018-09-03] MEDS: HEPARIN NA (PORCINE) 5,000 UNITS/ML 1ML VIAL SQ SCH (09:05)
[2018-09-03] MEDS: PANTOPRAZOLE 40 MG TABLET (FP) PO SCH (09:05)
[2018-09-03] MEDS: amLODIPine BESYLATE 10 MG TABLET (FP) PO SCH (09:05)
[2018-09-03] MEDS: ASPIRIN COATED 81 MG TABLET.EC PO SCH (09:05)
--- NOTE | 2018-09-03 10:26 | PN ---
Physical Exam: SUBJECTIVE: Patient seen and examined he is better , no c/o fever or chills has mild cough but no fever , his bp is on the higher side no nausea or vomiting OBJECTIVE: Vital Signs Period Temp Pulse Resp BP Sys/Newman Pulse Ox Last 24 Hr 98 F-98.4 F 72-87 20-20 148-164/76-88 93-93 GENERAL: The patient is awake, alert, and fully oriented, in no acute distress. HEAD: Normal with no signs of trauma. EYES: PERRL, extraocular movements intact, sclera anicteric, conjunctiva clear. No ptosis. ENT: Ears normal, nares patent, oropharynx clear without exudates, moist mucous membranes. NECK: Trachea midline, full range of motion, supple. LUNGS: bilateral coarse bs . HEART: Regular rate and rhythm, S1, S2 without murmur, rub or gallop. ABDOMEN: Soft, nontender, nondistended, normoactive bowel sounds, no guarding, no rebound, no hepatosplenomegaly, no masses. EXTREMITIES: 2+ pulses, warm, well-perfused, no edema. NEUROLOGICAL: Cranial nerves II through XII grossly intact. Normal speech, gait not observed. PSYCH: Normal mood, normal affect. SKIN: Warm, dry, normal turgor, no rashes or lesions noted Laboratory Results - last 24 hr 08/31/18 08/31/18 09/02/18 07:20 07:20 12:44 WBC RBC Hgb Hct MCV MCH MCHC RDW Plt Count MPV Absolute Neuts (auto) Neutrophils % Lymphocytes % Monocytes % Eosinophils % Basophils % Nucleated RBC % Sodium Potassium Chloride Carbon Dioxide Anion Gap BUN Creatinine Est GFR (CKD-EPI)AfAm Est GFR (CKD-EPI)NonAf POC Glucometer 159 Random Glucose Calcium Magnesium Total Bilirubin AST ALT Alkaline Phosphatase Total Protein Albumin c-ANCA <1:20 Proteinase 3 (PR3) <3.5 p-ANCA <1:20 Atypical p-ANCA <1:20 Myeloperoxidase Ab <9.0 HCV Quantitation Hcv not detected HCV RNA log copies/mL [facility] 09/02/18 09/02/18 09/03/18 16:52 21:29 05:50 WBC RBC Hgb Hct MCV MCH MCHC RDW Plt Count MPV Absolute Neuts (auto) Neutrophils % Lymphocytes % Monocytes % Eosinophils % Basophils % Nucleated RBC % Sodium Potassium Chloride Carbon Dioxide Anion Gap BUN Creatinine Est GFR (CKD-EPI)AfAm Est GFR (CKD-EPI)NonAf POC Glucometer 136 229 115 Random Glucose Calcium Magnesium Total Bilirubin AST ALT Alkaline Phosphatase Total Protein Albumin c-ANCA Proteinase 3 (PR3) p-ANCA Atypical p-ANCA Myeloperoxidase Ab HCV Quantitation HCV RNA log copies/mL 09/03/18 09/03/18 06:10 06:10 WBC 4.6 RBC 2.80 L Hgb 8.0 L Hct 24.0 L MCV 85.6 MCH 28.4 MCHC 33.2 RDW 13.8 Plt Count 216 MPV 8.5 Absolute Neuts (auto) 2.7 Neutrophils % 58.0 Lymphocytes % 23.8 Monocytes % 11.7 H Eosinophils % 6.1 H Basophils % 0.4 Nucleated RBC % 0 Sodium 143 Potassium 5.2 H Chloride 112 H Carbon Dioxide 23 Anion Gap 8 BUN 39.6 H Creatinine 3.2 H Est GFR (CKD-EPI)AfAm 23.29 Est GFR (CKD-EPI)NonAf 20.10 POC Glucometer Random Glucose 115 H Calcium 8.2 L Magnesium 2.3 Total Bilirubin 0.3 AST 20 ALT 22 Alkaline Phosphatase 64 Total Protein 6.3 L Albumin 2.6 L c-ANCA Proteinase 3 (PR3) p-ANCA Atypical p-ANCA Myeloperoxidase Ab HCV Quantitation HCV RNA log copies/mL Active Medications Generic Name Dose Route Start Last Admin Trade Name Freq PRN Reason Stop Dose Admin Acetaminophen 650 mg 08/28/18 20:29 08/30/18 20:35 Tylenol - PO 650 mg Q6H PRN Administration PAIN OR FEVER Albuterol Sulfate 1 amp 08/30/18 10:37 09/02/18 03:15 Ventolin 0.083% Nebulizer Soln - NEB 1 amp Q4H PRN Administration SHORT OF BREATH/WHEEZING Albuterol/Ipratropium 1 amp 09/01/18 08:00 09/03/18 07:30 Duoneb - NEB 1 amp RTID [facility] Administration Amlodipine Besylate 10 mg 08/31/18 13:48 09/03/18 09:05 Norvasc - PO 10 mg DAILY [facility] Administration Aspirin 81 mg 08/28/18 10:00 09/03/18 09:05 Ecotrin - PO 81 mg DAILY [facility] Administration Atorvastatin Calcium 20 mg 08/28/18 22:00 09/02/18 21:26 Lipitor - PO 20 mg HS [facility] Administration Budesonide/Formoterol Fumarate 2 puff 09/01/18 13:45 09/03/18 09:05 Symbicort 160/4.5mcg - IH 2 puff BID [facility] Administration Carvedilol 25 mg 09/02/18 14:57 09/03/18 09:05 Coreg - PO 25 mg BID [facility] Administration Guaifenesin 10 ml 08/27/18 19:28 09/02/18 18:06 Robitussin Dm - PO 10 ml Q6H PRN Administration COUGH Heparin Sodium (Porcine) 5,000 unit 08/27/18 22:00 09/03/18 09:05 Heparin - SQ 5,000 unit BID [facility] Administration Ceftriaxone Sodium 1 gm/ 50 mls @ 100 mls/hr 08/30/18 13:30 09/03/18 09:05 Dextrose IVPB 100 mls/hr DAILY [facility] Administration Protocol Insulin Aspart 1 vial 08/27/18 22:00 09/03/18 06:03 Novolog Vial Sliding Scale - SQ Not Given ACHS [facility] Protocol Insulin Detemir 20 units 08/28/18 10:00 09/03/18 06:03 Levemir Vial SQ 20 units DAILY@0700 [facility] Administration Lidocaine 1 patch 09/01/18 00:00 09/02/18 23:40 Lidoderm Patch - TP 1 patch DAILY@0000 [facility] Administration Melatonin 5 mg 08/28/18 20:29 08/31/18 22:04 Melatonin PO 5 mg HS PRN Administration INSOMNIA Miscellaneous 1 each 09/01/18 12:00 09/02/18 13:12 Lidoderm Patch Removal MC 1 each DAILY@1200 [facility] Administration Pantoprazole Sodium 40 mg 08/28/18 10:00 09/03/18 09:05 Protonix - PO 40 mg DAILY [facility] Administration ASSESSMENT/PLAN: Problem List (1) Community acquired pneumonia not on ct chest Assessment/Plan: continue azithromycin and ceftriaxone -will consult with pulm to change abx to augmentin 875MG PO BID 7D -supplemental O2 to mainatin sat >92 % -needs F/U chest CT post discharge as discussed with (2) HLD (hyperlipidemia) Assessment/Plan: continue home nagel of atrovastatin low cholesterol/low fat diet (3) HTN (hypertension) Assessment/Plan: remains hypertensive on amlodipine and carvedilol to 25mg bid, will continue to monitor (4) [id number] kidney injury Assessment/Plan: Cr 3.2 now,unclear to baseline -cont to monitor renal function - renal ultrasound reviewed by Dr Martin and no acute pathology seen -urine lytes: Una95, Ucr77.5, FeNa 2.95%, suggestive or pre-renal state given any absence of pathology on renal US -IVF stopped, continue to monitor volume status -renal biopsy when more stable (5) Pleuritic chest pain Assessment/Plan: MSO4/tylenol PRN for pain encourage patient to use a pillow to splint when coughing (6) Diabetes Assessment/Plan: BGM AC/qhs novolog sliding scale continue am levemir (8) Lung mass Assessment/Plan: BL pleural effusion, RML opacity will need further imaging as outpt SPutum for AFB neagtive x QUANTIFERON pending & HIV negative Visit type - Emergency Visit Emergency Visit: Yes ED Registration Date: 08/27/18 Care time: The patient presented to the Emergency Department on the above date and was hospitalized for further evaluation of their emergent condition. - New Patient This patient is new to me today: Yes Date on this admission: 09/03/18 - Critical Care Critical Care patient: No - Discharge Referral Referred to [facility] No
[2018-09-03] MEDS ORDERED: INSULIN (NOVOLOG) ASPART 100 UNITS/ML 10ML VIAL ONE (11:03)
--- NOTE | 2018-09-03 11:56 | PN ---
Progress Note, Physician History of Present Illness: pulmonary alert,feeling better,less dyspneic,+ cough - Current Medication List Current Medications: Active Medications Acetaminophen (Tylenol -) 650 mg PO Q6H PRN PRN Reason: PAIN OR FEVER Last Admin: 08/30/18 20:35 Dose: 650 mg Albuterol Sulfate (Ventolin 0.083% Nebulizer Soln -) 1 amp NEB Q4H PRN PRN Reason: SHORT OF BREATH/WHEEZING Last Admin: 09/02/18 03:15 Dose: 1 amp Albuterol/Ipratropium (Duoneb -) 1 amp NEB RTID [facility] Last Admin: 09/03/18 07:30 Dose: 1 amp Amlodipine Besylate (Norvasc -) 10 mg PO DAILY [facility] Last Admin: 09/03/18 09:05 Dose: 10 mg Aspirin (Ecotrin -) 81 mg PO DAILY [facility] Last Admin: 09/03/18 09:05 Dose: 81 mg Atorvastatin Calcium (Lipitor -) 20 mg PO HS [facility] Last Admin: 09/02/18 21:26 Dose: 20 mg Budesonide/Formoterol Fumarate (Symbicort 160/4.5mcg -) 2 puff IH BID [facility] Last Admin: 09/03/18 09:05 Dose: 2 puff Carvedilol (Coreg -) 25 mg PO BID [facility] Last Admin: 09/03/18 09:05 Dose: 25 mg Guaifenesin (Robitussin Dm -) 10 ml PO Q6H PRN PRN Reason: COUGH Last Admin: 09/02/18 18:06 Dose: 10 ml Heparin Sodium (Porcine) (Heparin -) 5,000 unit SQ BID [facility] Last Admin: 09/03/18 09:05 Dose: 5,000 unit Ceftriaxone Sodium 1 gm/ (Dextrose) 50 mls @ 100 mls/hr IVPB DAILY [facility]; Protocol Last Admin: 09/03/18 09:05 Dose: 100 mls/hr Insulin Aspart (Novolog Vial Sliding Scale -) 1 vial SQ ACHS [facility]; Protocol Last Admin: 09/03/18 11:05 Dose: 2 units Insulin Detemir (Levemir Vial) 20 units SQ DAILY@0700 [facility] Last Admin: 09/03/18 06:03 Dose: 20 units Lidocaine (Lidoderm Patch -) 1 patch TP DAILY@0000 [facility] Last Admin: 09/02/18 23:40 Dose: 1 patch Melatonin (Melatonin) 5 mg PO HS PRN PRN Reason: INSOMNIA Last Admin: 08/31/18 22:04 Dose: 5 mg Miscellaneous (Lidoderm Patch Removal) 1 each MC DAILY@1200 [facility] Last Admin: 09/02/18 13:12 Dose: 1 each Pantoprazole Sodium (Protonix -) 40 mg PO DAILY [facility] Last Admin: 09/03/18 09:05 Dose: 40 mg - Objective Vital Signs: Vital Signs Temperature 98 F 09/03/18 06:28 Pulse Rate 72 09/03/18 06:28 Respiratory Rate 20 09/03/18 06:28 Blood Pressure 158/88 09/03/18 06:28 O2 Sat by Pulse Oximetry (%) 94 L 09/03/18 09:00 Constitutional: Yes: Well Nourished, Calm Eyes: Yes: WNL HENT: Yes: WNL Neck: Yes: WNL Cardiovascular: Yes: Regular Rate and Rhythm, S1, S2 Respiratory: Yes: Diminished Gastrointestinal: Yes: Normal Bowel Sounds, Soft Extremities: Yes: WNL Edema: No Labs: CBC, BMP 09/03/18 06:10 09/03/18 06:10 Problem List - Problems (1) Anemia Code(s): D64.9 - ANEMIA, UNSPECIFIED (2) CKD (chronic kidney disease) Code(s): N18.9 - CHRONIC KIDNEY DISEASE, UNSPECIFIED (3) Community acquired pneumonia Code(s): J18.9 - PNEUMONIA, UNSPECIFIED ORGANISM Qualifiers: Laterality: right Lung location: middle lobe of lung Qualified Code(s): J18.1 - Lobar pneumonia, unspecified organism (4) HLD (hyperlipidemia) Code(s): E78.5 - HYPERLIPIDEMIA, UNSPECIFIED (5) HTN (hypertension) Code(s): I10 - ESSENTIAL (PRIMARY) HYPERTENSION (6) Bronchitis Code(s): J40 - BRONCHITIS, NOT SPECIFIED ACUTE OR CHRONIC Assessment/Plan A/P r/o Pneumonia Acute on Chronic Renal Failure HTN DM Hyperlipidmemia Anemia - antibiotics - CT chest findings suggestive of fluid in the fissue, will need outpt f/u of chest imaging to ensure resolution - DVT prophylaxis - normal transfusion threshold DR MARTINS
[2018-09-03] MEDS: LIDOCAINE PATCH REMOVAL MC SCH (12:05)
[2018-09-03] MEDS ORDERED: FUROSEMIDE 40 MG TABLET (FP) PO ONE (15:01)
--- NOTE | 2018-09-03 15:01 | PN ---
Progress Note, Physician History of Present Illness: Pt seen and examined at bedside. He is awake and alert. He does have shortness of breath with ambulation. - Current Medication List Current Medications: Active Medications Acetaminophen (Tylenol -) 650 mg PO Q6H PRN PRN Reason: PAIN OR FEVER Last Admin: 08/30/18 20:35 Dose: 650 mg Albuterol Sulfate (Ventolin 0.083% Nebulizer Soln -) 1 amp NEB Q4H PRN PRN Reason: SHORT OF BREATH/WHEEZING Last Admin: 09/02/18 03:15 Dose: 1 amp Albuterol/Ipratropium (Duoneb -) 1 amp NEB RTID [facility] Last Admin: 09/03/18 07:30 Dose: 1 amp Amlodipine Besylate (Norvasc -) 10 mg PO DAILY [facility] Last Admin: 09/03/18 09:05 Dose: 10 mg Aspirin (Ecotrin -) 81 mg PO DAILY [facility] Last Admin: 09/03/18 09:05 Dose: 81 mg Atorvastatin Calcium (Lipitor -) 20 mg PO HS [facility] Last Admin: 09/02/18 21:26 Dose: 20 mg Budesonide/Formoterol Fumarate (Symbicort 160/4.5mcg -) 2 puff IH BID [facility] Last Admin: 09/03/18 09:05 Dose: 2 puff Carvedilol (Coreg -) 25 mg PO BID [facility] Last Admin: 09/03/18 09:05 Dose: 25 mg Guaifenesin (Robitussin Dm -) 10 ml PO Q6H PRN PRN Reason: COUGH Last Admin: 09/02/18 18:06 Dose: 10 ml Heparin Sodium (Porcine) (Heparin -) 5,000 unit SQ BID [facility] Last Admin: 09/03/18 09:05 Dose: 5,000 unit Ceftriaxone Sodium 1 gm/ (Dextrose) 50 mls @ 100 mls/hr IVPB DAILY [facility]; Protocol Last Admin: 09/03/18 09:05 Dose: 100 mls/hr Insulin Aspart (Novolog Vial Sliding Scale -) 1 vial SQ ACHS [facility]; Protocol Last Admin: 09/03/18 11:05 Dose: 2 units Insulin Detemir (Levemir Vial) 20 units SQ DAILY@0700 [facility] Last Admin: 09/03/18 06:03 Dose: 20 units Lidocaine (Lidoderm Patch -) 1 patch TP DAILY@0000 [facility] Last Admin: 09/02/18 23:40 Dose: 1 patch Melatonin (Melatonin) 5 mg PO HS PRN PRN Reason: INSOMNIA Last Admin: 08/31/18 22:04 Dose: 5 mg Miscellaneous (Lidoderm Patch Removal) 1 each MC DAILY@1200 [facility] Last Admin: 09/03/18 12:05 Dose: 1 each Pantoprazole Sodium (Protonix -) 40 mg PO DAILY [facility] Last Admin: 09/03/18 09:05 Dose: 40 mg - Objective Vital Signs: Vital Signs Temperature 97.9 F 09/03/18 14:00 Pulse Rate 71 09/03/18 14:00 Respiratory Rate 20 09/03/18 14:00 Blood Pressure 158/88 09/03/18 14:00 O2 Sat by Pulse Oximetry (%) 94 L 09/03/18 09:00 Constitutional: Yes: Calm Eyes: Yes: Conjunctiva Clear HENT: Yes: Atraumatic Cardiovascular: Yes: S1, S2 Respiratory: Yes: On Nasal O2, Rhonchi Gastrointestinal: Yes: Soft Genitourinary: Yes: WNL Edema: Yes Edema: LLE: Trace, RLE: Trace Neurological: Yes: Oriented Psychiatric: Yes: Oriented Labs: CBC, BMP 09/03/18 06:10 09/03/18 06:10 Problem List - Problems (1) CKD (chronic kidney disease) Code(s): N18.9 - CHRONIC KIDNEY DISEASE, UNSPECIFIED (2) Anemia Code(s): D64.9 - ANEMIA, UNSPECIFIED (3) Community acquired pneumonia Code(s): J18.9 - PNEUMONIA, UNSPECIFIED ORGANISM Qualifiers: Laterality: right Lung location: middle lobe of lung Qualified Code(s): J18.1 - Lobar pneumonia, unspecified organism (4) HTN (hypertension) Code(s): I10 - ESSENTIAL (PRIMARY) HYPERTENSION Assessment/Plan Current Medications Generic Name Dose Route Start Last Admin Trade Name Freq PRN Reason Stop Dose Admin Acetaminophen 650 mg 08/28/18 20:29 08/30/18 20:35 Tylenol - PO 650 mg Q6H PRN Administration PAIN OR FEVER Albuterol Sulfate 1 amp 08/30/18 10:37 09/02/18 03:15 Ventolin 0.083% Nebulizer Soln - NEB 1 amp Q4H PRN Administration SHORT OF BREATH/WHEEZING Albuterol/Ipratropium 1 amp 09/01/18 08:00 09/03/18 07:30 Duoneb - NEB 1 amp RTID [facility] Administration Amlodipine Besylate 10 mg 08/31/18 13:48 09/03/18 09:05 Norvasc - PO 10 mg DAILY [facility] Administration Aspirin 81 mg 08/28/18 10:00 09/03/18 09:05 Ecotrin - PO 81 mg DAILY [facility] Administration Atorvastatin Calcium 20 mg 08/28/18 22:00 09/02/18 21:26 Lipitor - PO 20 mg HS [facility] Administration Budesonide/Formoterol Fumarate 2 puff 09/01/18 13:45 09/03/18 09:05 Symbicort 160/4.5mcg - IH 2 puff BID [facility] Administration Carvedilol 25 mg 09/02/18 14:57 09/03/18 09:05 Coreg - PO 25 mg BID [facility] Administration Guaifenesin 10 ml 08/27/18 19:28 09/02/18 18:06 Robitussin Dm - PO 10 ml Q6H PRN Administration COUGH Heparin Sodium (Porcine) 5,000 unit 08/27/18 22:00 09/03/18 09:05 Heparin - SQ 5,000 unit BID [facility] Administration Ceftriaxone Sodium 1 gm/ 50 mls @ 100 mls/hr 08/30/18 13:30 09/03/18 09:05 Dextrose IVPB 100 mls/hr DAILY [facility] Administration Protocol Insulin Aspart 1 vial 08/27/18 22:00 09/03/18 11:05 Novolog Vial Sliding Scale - SQ 2 units ACHS [facility] Administration Protocol Insulin Detemir 20 units 08/28/18 10:00 09/03/18 06:03 Levemir Vial SQ 20 units DAILY@0700 [facility] Administration Lidocaine 1 patch 09/01/18 00:00 09/02/18 23:40 Lidoderm Patch - TP 1 patch DAILY@0000 [facility] Administration Melatonin 5 mg 08/28/18 20:29 08/31/18 22:04 Melatonin PO 5 mg HS PRN Administration INSOMNIA Miscellaneous 1 each 09/01/18 12:00 09/03/18 12:05 Lidoderm Patch Removal MC 1 each DAILY@1200 [facility] Administration Pantoprazole Sodium 40 mg 08/28/18 10:00 09/03/18 09:05 Protonix - PO 40 mg DAILY [facility] Administration Laboratory Tests 08/31/18 08/31/18 07:20 07:20 JUAN A M-Yakov Not observed JULIANA Screen Negative c-ANCA <1:20 Proteinase 3 (PR3) <3.5 p-ANCA <1:20 Atypical p-ANCA <1:20 Myeloperoxidase Ab <9.0 Double Strand DNA Ab <1 Glomerular Base Memb Ab 4 Impression 1. CKD with unclear baseline 2. HTN 3. DM 4. HLD 5. possible lung mass 6. nephrotic range proteinuria 7. hyperkalemia Plan - will give 40 mg of lasix, should help with potassium as well - repeat labs in am - serologies neg so far - kidney biopsy once stable - monitor bp on 25 mg of coreg bid
[2018-09-03] MEDS: ATORVASTATIN CA 20 MG TABLET (FP) PO SCH (21:09)
[2018-09-03] MEDS: LIDOCAINE 5% TOPICAL PATCH TP SCH (23:24)
[2018-09-04] MEDS: INSULIN SLIDING SCALE (NOVOLOG) 1 VIAL SQ SCH ×4 (06:36→21:46)
[2018-09-04] MEDS: INSULIN (LEVEMIR) 100 UNITS/ML UNITS SQ SCH (06:37)
[2018-09-04] MEDS: ALBUTEROL SO4 2.5/IPRATROPIUM 0.5 INH SOL 3 ML VIAL.NEB. NEB SCH ×2 (07:38→13:53)
[2018-09-04 08:26] LABS: BASO % 1.1 % (0-2.0); EOS % 5.9 % (0-4.5); HEMATOCRIT 23.8 % (35.4-49); LYMPH % 20.9 % (8-40); MCH 28.9 pg (25.7-33.7); MCHC 33.7 g/dl (32.0-35.9); MEAN CELL VOLUME 85.8 fl (80-96); MEAN PLT VOLUME 8.6 fl (7.5-11.1); NEUT % 62.1 % (42.8-82.8); RBC 2.78 M/mm3 (4.00-5.60); RDW 14.5 % (11.9-15.9)
[2018-09-04 08:39] LABS: ALBUMIN 2.6 g/dl (3.4-5.0); BILIRUBIN,TOTAL 0.2 mg/dL (0.2-1); BLOOD UREA NITROGEN 39.8 mg/dL (7-18); CALCIUM 8.2 mg/dL (8.5-10.1); CREATININE 3.4 mg/dL (0.55-1.3); TOT PROT 6.2 g/dl (6.4-8.2)
[2018-09-04 09:18] LABS: PLATELET COUNT 243 K/MM3 (134-434)
[2018-09-04] MEDS ORDERED: DEXTROSE 5%-WATER - 50 ML IVPB ONE (10:46)
[2018-09-04] MEDS ORDERED: cefTRIAXone SODIUM 1 GM VIAL ONE (10:46)
[2018-09-04] MEDS: ASPIRIN COATED 81 MG TABLET.EC PO SCH (10:52)
[2018-09-04] MEDS: PANTOPRAZOLE 40 MG TABLET (FP) PO SCH (10:52)
[2018-09-04] MEDS: amLODIPine BESYLATE 10 MG TABLET (FP) PO SCH (10:52)
[2018-09-04] MEDS: CARVEDILOL 25 MG TABLET (FP) PO SCH ×2 (10:52→21:45)
[2018-09-04] MEDS: CEFTRIAXONE 1 GM in DEXTROSE 5%-WATER - 50 ML IVPB SCH (10:53)
--- NOTE | 2018-09-04 11:36 | PN ---
Progress Note, Physician History of Present Illness: pulmonary alert,comfortable,-resp distress,less cough - Current Medication List Current Medications: Active Medications Acetaminophen (Tylenol -) 650 mg PO Q6H PRN PRN Reason: PAIN OR FEVER Last Admin: 08/30/18 20:35 Dose: 650 mg Albuterol/Ipratropium (Duoneb -) 1 amp NEB RTID [facility] Last Admin: 09/04/18 07:38 Dose: 1 amp Amlodipine Besylate (Norvasc -) 10 mg PO DAILY [facility] Last Admin: 09/04/18 10:52 Dose: 10 mg Aspirin (Ecotrin -) 81 mg PO DAILY [facility] Last Admin: 09/04/18 10:52 Dose: 81 mg Atorvastatin Calcium (Lipitor -) 20 mg PO HS [facility] Last Admin: 09/03/18 21:09 Dose: 20 mg Budesonide/Formoterol Fumarate (Symbicort 160/4.5mcg -) 2 puff IH BID [facility] Last Admin: 09/03/18 21:08 Dose: 2 puff Carvedilol (Coreg -) 25 mg PO BID [facility] Last Admin: 09/04/18 10:52 Dose: 25 mg Guaifenesin (Robitussin Dm -) 10 ml PO Q6H PRN PRN Reason: COUGH Last Admin: 09/02/18 18:06 Dose: 10 ml Ceftriaxone Sodium 1 gm/ (Dextrose) 50 mls @ 100 mls/hr IVPB DAILY [facility]; Protocol Last Admin: 09/04/18 10:53 Dose: 100 mls/hr Insulin Aspart (Novolog Vial Sliding Scale -) 1 vial SQ ACHS [facility]; Protocol Last Admin: 09/04/18 06:36 Dose: Not Given Insulin Detemir (Levemir Vial) 20 units SQ DAILY@0700 [facility] Last Admin: 09/04/18 06:37 Dose: 20 units Lidocaine (Lidoderm Patch -) 1 patch TP DAILY@0000 [facility] Last Admin: 09/03/18 23:24 Dose: 1 patch Melatonin (Melatonin) 5 mg PO HS PRN PRN Reason: INSOMNIA Last Admin: 08/31/18 22:04 Dose: 5 mg Miscellaneous (Lidoderm Patch Removal) 1 each MC DAILY@1200 [facility] Last Admin: 09/03/18 12:05 Dose: 1 each Pantoprazole Sodium (Protonix -) 40 mg PO DAILY [facility] Last Admin: 09/04/18 10:52 Dose: 40 mg - Objective Vital Signs: Vital Signs Temperature 98.4 F 09/03/18 20:27 Pulse Rate 80 09/03/18 20:27 Respiratory Rate 20 09/03/18 20:27 Blood Pressure 165/87 09/03/18 20:27 O2 Sat by Pulse Oximetry (%) 90 L 09/03/18 21:00 Constitutional: Yes: Well Nourished, Calm Eyes: Yes: WNL HENT: Yes: WNL Neck: Yes: WNL Cardiovascular: Yes: Regular Rate and Rhythm, S1, S2 Respiratory: Yes: Rales (few bibasilar crackles) Gastrointestinal: Yes: Normal Bowel Sounds, Soft Extremities: Yes: WNL Edema: No Labs: CBC, BMP 09/04/18 06:51 09/04/18 06:55 Problem List - Problems (1) Anemia Code(s): D64.9 - ANEMIA, UNSPECIFIED (2) CKD (chronic kidney disease) Code(s): N18.9 - CHRONIC KIDNEY DISEASE, UNSPECIFIED (3) Community acquired pneumonia Code(s): J18.9 - PNEUMONIA, UNSPECIFIED ORGANISM Qualifiers: Laterality: right Lung location: middle lobe of lung Qualified Code(s): J18.1 - Lobar pneumonia, unspecified organism (4) HLD (hyperlipidemia) Code(s): E78.5 - HYPERLIPIDEMIA, UNSPECIFIED (5) HTN (hypertension) Code(s): I10 - ESSENTIAL (PRIMARY) HYPERTENSION (6) Bronchitis Code(s): J40 - BRONCHITIS, NOT SPECIFIED ACUTE OR CHRONIC Assessment/Plan A/P r/o Pneumonia Acute on Chronic Renal Failure HTN DM Hyperlipidmemia Anemia - abx - CT chest findings suggestive of fluid in the fissue, will need outpt f/u of chest imaging to ensure resolution - DVT prophylaxis - normal transfusion threshold DR MARTINS
[2018-09-04] MEDS: BUDESONIDE/FORMETEROL FUMARATE 160/4.5 mcg INHALER IH SCH ×2 (11:50→21:47)
[2018-09-04] MEDS: LIDOCAINE PATCH REMOVAL MC SCH (11:54)
--- NOTE | 2018-09-04 15:54 | PN ---
Physical Exam: SUBJECTIVE: Patient seen and examined He is comfortable and has no sob at rest he recieved 40 mg of lasix yesterday , his creatinine is gone slightly up to 3.5 from 3.2 OBJECTIVE: Vital Signs Period Temp Pulse Resp BP Sys/Newman Pulse Ox Last 24 Hr 98.1 F-98.4 F 73-80 20-20 151-167/65-87 90 GENERAL: The patient is awake, alert, and fully oriented, in no acute distress. HEAD: Normal with no signs of trauma. EYES: PERRL, extraocular movements intact, sclera anicteric, conjunctiva clear. No ptosis. ENT: Ears normal, nares patent, oropharynx clear without exudates, moist mucous membranes. NECK: Trachea midline, full range of motion, supple. LUNGS: Breath sounds equal, clear to auscultation bilaterally, no wheezes, no crackles, no accessory muscle use. HEART: Regular rate and rhythm, S1, S2 without murmur, rub or gallop. ABDOMEN: Soft, nontender, nondistended, normoactive bowel sounds, no guarding, no rebound, no hepatosplenomegaly, no masses. EXTREMITIES: 2+ pulses, warm, well-perfused, no edema. NEUROLOGICAL: Cranial nerves II through XII grossly intact. Normal speech, gait not observed. PSYCH: Normal mood, normal affect. SKIN: Warm, dry, normal turgor, no rashes or lesions noted Laboratory Results - last 24 hr 09/03/18 09/03/18 09/04/18 16:28 21:04 06:36 WBC RBC Hgb Hct MCV MCH MCHC RDW Plt Count MPV Absolute Neuts (auto) Neutrophils % Lymphocytes % Monocytes % Eosinophils % Basophils % Nucleated RBC % Sodium Potassium Chloride Carbon Dioxide Anion Gap BUN Creatinine Est GFR (CKD-EPI)AfAm Est GFR (CKD-EPI)NonAf POC Glucometer 145 160 140 Random Glucose Calcium Magnesium Total Bilirubin AST ALT Alkaline Phosphatase Total Protein Albumin 09/04/18 09/04/18 09/04/18 06:51 06:55 11:47 WBC 5.0 RBC 2.78 L Hgb 8.0 L Hct 23.8 L MCV 85.8 MCH 28.9 MCHC 33.7 RDW 14.5 Plt Count 243 MPV 8.6 Absolute Neuts (auto) 3.1 Neutrophils % 62.1 Lymphocytes % 20.9 Monocytes % 10.0 Eosinophils % 5.9 H Basophils % 1.1 Nucleated RBC % 0 Sodium 140 Potassium 5.0 Chloride 110 H Carbon Dioxide 24 Anion Gap 6 L BUN 39.8 H Creatinine 3.4 H Est GFR (CKD-EPI)AfAm 21.65 Est GFR (CKD-EPI)NonAf 18.68 POC Glucometer 129 Random Glucose 136 H Calcium 8.2 L Magnesium 2.0 Total Bilirubin 0.2 AST 23 ALT 25 Alkaline Phosphatase 65 Total Protein 6.2 L Albumin 2.6 L Active Medications Generic Name Dose Route Start Last Admin Trade Name Freq PRN Reason Stop Dose Admin Acetaminophen 650 mg 08/28/18 20:29 08/30/18 20:35 Tylenol - PO 650 mg Q6H PRN Administration PAIN OR FEVER Albuterol/Ipratropium 1 amp 09/01/18 08:00 09/04/18 13:53 Duoneb - NEB 1 amp RTID [facility] Administration Amlodipine Besylate 10 mg 08/31/18 13:48 09/04/18 10:52 Norvasc - PO 10 mg DAILY [facility] Administration Aspirin 81 mg 08/28/18 10:00 09/04/18 10:52 Ecotrin - PO 81 mg DAILY [facility] Administration Atorvastatin Calcium 20 mg 08/28/18 22:00 09/03/18 21:09 Lipitor - PO 20 mg HS [facility] Administration Budesonide/Formoterol Fumarate 2 puff 09/01/18 13:45 09/04/18 11:50 Symbicort 160/4.5mcg - IH 2 puff BID [facility] Administration Carvedilol 25 mg 09/02/18 14:57 09/04/18 10:52 Coreg - PO 25 mg BID [facility] Administration Guaifenesin 10 ml 08/27/18 19:28 09/02/18 18:06 Robitussin Dm - PO 10 ml Q6H PRN Administration COUGH Ceftriaxone Sodium 1 gm/ 50 mls @ 100 mls/hr 08/30/18 13:30 09/04/18 10:53 Dextrose IVPB 100 mls/hr DAILY [facility] Administration Protocol Insulin Aspart 1 vial 08/27/18 22:00 09/04/18 11:52 Novolog Vial Sliding Scale - SQ Not Given [facility]S [facility] Protocol Insulin Detemir 20 units 08/28/18 10:00 09/04/18 06:37 Levemir Vial SQ 20 units DAILY@0700 [facility] Administration Lidocaine 1 patch 09/01/18 00:00 09/03/18 23:24 Lidoderm Patch - TP 1 patch DAILY@0000 [facility] Administration Melatonin 5 mg 08/28/18 20:29 08/31/18 22:04 Melatonin PO 5 mg HS PRN Administration INSOMNIA Miscellaneous 1 each 09/01/18 12:00 09/04/18 11:54 Lidoderm Patch Removal MC Not Given DAILY@1200 [facility] Pantoprazole Sodium 40 mg 08/28/18 10:00 09/04/18 10:52 Protonix - PO 40 mg DAILY [facility] Administration ASSESSMENT/PLAN: H(1) Community acquired pneumonia not on ct chest Assessment/Plan: continue azithromycin and ceftriaxone -supplemental O2 to mainatin sat >92 % -needs F/U chest CT post discharge as discussed with patient (2) HLD (hyperlipidemia) Assessment/Plan: continue home nagel of atrovastatin low cholesterol/low fat diet (3) HTN (hypertension) Assessment/Plan: it is better today. on amlodipine and carvedilol to 25mg bid, will continue to monitor (4) [id number] kidney injury Assessment/Plan: Cr 3.2 now,unclear to baseline -cont to monitor renal function - renal ultrasound reviewed by Dr Martin and no acute pathology seen -urine lytes: Una95, Ucr77.5, FeNa 2.95%, suggestive or pre-renal state given any absence of pathology on renal US -IVF stopped, continue to monitor volume status -renal biopsy when more stable -repeat sma am (5) Pleuritic chest pain Assessment/Plan: MSO4/tylenol PRN for pain encourage patient to use a pillow to splint when coughing (6) Diabetes Assessment/Plan: BGM AC/qhs novolog sliding scale continue am levemir (8) Lung mass Assessment/Plan: BL pleural effusion, RML opacity will need further imaging as outpt SPutum for AFB neagtive x QUANTIFERON pending & HIV negative Visit type - Emergency Visit Emergency Visit: Yes ED Registration Date: 08/27/18 Care time: The patient presented to the Emergency Department on the above date and was hospitalized for further evaluation of their emergent condition. - New Patient This patient is new to me today: No - Critical Care Critical Care patient: No - Discharge Referral Referred to [facility] No
--- NOTE | 2018-09-04 16:54 | PN ---
Progress Note, Physician History of Present Illness: Pt seen and examined at bedside. He is awake and alert. He denies dysuria. - Current Medication List Current Medications: Active Medications Acetaminophen (Tylenol -) 650 mg PO Q6H PRN PRN Reason: PAIN OR FEVER Last Admin: 08/30/18 20:35 Dose: 650 mg Albuterol/Ipratropium (Duoneb -) 1 amp NEB RTID [facility] Last Admin: 09/04/18 13:53 Dose: 1 amp Amlodipine Besylate (Norvasc -) 10 mg PO DAILY [facility] Last Admin: 09/04/18 10:52 Dose: 10 mg Aspirin (Ecotrin -) 81 mg PO DAILY [facility] Last Admin: 09/04/18 10:52 Dose: 81 mg Atorvastatin Calcium (Lipitor -) 20 mg PO HS [facility] Last Admin: 09/03/18 21:09 Dose: 20 mg Budesonide/Formoterol Fumarate (Symbicort 160/4.5mcg -) 2 puff IH BID [facility] Last Admin: 09/04/18 11:50 Dose: 2 puff Carvedilol (Coreg -) 25 mg PO BID [facility] Last Admin: 09/04/18 10:52 Dose: 25 mg Guaifenesin (Robitussin Dm -) 10 ml PO Q6H PRN PRN Reason: COUGH Last Admin: 09/02/18 18:06 Dose: 10 ml Ceftriaxone Sodium 1 gm/ (Dextrose) 50 mls @ 100 mls/hr IVPB DAILY [facility]; Protocol Last Admin: 09/04/18 10:53 Dose: 100 mls/hr Insulin Aspart (Novolog Vial Sliding Scale -) 1 vial SQ ACHS [facility]; Protocol Last Admin: 09/04/18 11:52 Dose: Not Given Insulin Detemir (Levemir Vial) 20 units SQ DAILY@0700 [facility] Last Admin: 09/04/18 06:37 Dose: 20 units Lidocaine (Lidoderm Patch -) 1 patch TP DAILY@0000 [facility] Last Admin: 09/03/18 23:24 Dose: 1 patch Melatonin (Melatonin) 5 mg PO HS PRN PRN Reason: INSOMNIA Last Admin: 08/31/18 22:04 Dose: 5 mg Miscellaneous (Lidoderm Patch Removal) 1 each MC DAILY@1200 [facility] Last Admin: 09/04/18 11:54 Dose: Not Given Pantoprazole Sodium (Protonix -) 40 mg PO DAILY [facility] Last Admin: 09/04/18 10:52 Dose: 40 mg - Objective Vital Signs: Vital Signs Temperature 98.1 F 09/04/18 14:00 Pulse Rate 73 09/04/18 14:00 Respiratory Rate 20 09/04/18 14:00 Blood Pressure 167/65 09/04/18 14:00 O2 Sat by Pulse Oximetry (%) 90 L 09/03/18 21:00 Constitutional: Yes: Calm Eyes: Yes: Conjunctiva Clear HENT: Yes: Atraumatic Neck: Yes: Supple Cardiovascular: Yes: S1, S2 Respiratory: Yes: On Nasal O2 Gastrointestinal: Yes: WNL Genitourinary: Yes: WNL Extremities: Yes: WNL Edema: No Neurological: Yes: Oriented Psychiatric: Yes: Oriented Labs: CBC, BMP 09/04/18 06:51 09/04/18 06:55 Problem List - Problems (1) CKD (chronic kidney disease) Code(s): N18.9 - CHRONIC KIDNEY DISEASE, UNSPECIFIED (2) Anemia Code(s): D64.9 - ANEMIA, UNSPECIFIED (3) Community acquired pneumonia Code(s): J18.9 - PNEUMONIA, UNSPECIFIED ORGANISM Qualifiers: Laterality: right Lung location: middle lobe of lung Qualified Code(s): J18.1 - Lobar pneumonia, unspecified organism (4) HTN (hypertension) Code(s): I10 - ESSENTIAL (PRIMARY) HYPERTENSION Assessment/Plan Current Medications Generic Name Dose Route Start Last Admin Trade Name Freq PRN Reason Stop Dose Admin Acetaminophen 650 mg 08/28/18 20:29 08/30/18 20:35 Tylenol - PO 650 mg Q6H PRN Administration PAIN OR FEVER Albuterol/Ipratropium 1 amp 09/01/18 08:00 09/04/18 13:53 Duoneb - NEB 1 amp RTID [facility] Administration Amlodipine Besylate 10 mg 08/31/18 13:48 09/04/18 10:52 Norvasc - PO 10 mg DAILY [facility] Administration Aspirin 81 mg 08/28/18 10:00 09/04/18 10:52 Ecotrin - PO 81 mg DAILY [facility] Administration Atorvastatin Calcium 20 mg 08/28/18 22:00 09/03/18 21:09 Lipitor - PO 20 mg HS [facility] Administration Budesonide/Formoterol Fumarate 2 puff 09/01/18 13:45 09/04/18 11:50 Symbicort 160/4.5mcg - IH 2 puff BID [facility] Administration Carvedilol 25 mg 09/02/18 14:57 09/04/18 10:52 Coreg - PO 25 mg BID [facility] Administration Guaifenesin 10 ml 08/27/18 19:28 09/02/18 18:06 Robitussin Dm - PO 10 ml Q6H PRN Administration COUGH Ceftriaxone Sodium 1 gm/ 50 mls @ 100 mls/hr 08/30/18 13:30 09/04/18 10:53 Dextrose IVPB 100 mls/hr DAILY [facility] Administration Protocol Insulin Aspart 1 vial 08/27/18 22:00 09/04/18 11:52 Novolog Vial Sliding Scale - SQ Not Given ACHS [facility] Protocol Insulin Detemir 20 units 08/28/18 10:00 09/04/18 06:37 Levemir Vial SQ 20 units DAILY@0700 [facility] Administration Lidocaine 1 patch 09/01/18 00:00 09/03/18 23:24 Lidoderm Patch - TP 1 patch DAILY@0000 [facility] Administration Melatonin 5 mg 08/28/18 20:29 08/31/18 22:04 Melatonin PO 5 mg HS PRN Administration INSOMNIA Miscellaneous 1 each 09/01/18 12:00 09/04/18 11:54 Lidoderm Patch Removal MC Not Given DAILY@1200 [facility] Pantoprazole Sodium 40 mg 08/28/18 10:00 09/04/18 10:52 Protonix - PO 40 mg DAILY [facility] Administration Impression 1. CKD with unclear baseline 2. HTN 3. DM 4. HLD 5. possible lung mass 6. nephrotic range proteinuria 7. hyperkalemia Plan - repeat labs in am - will monitor renal function - kidney biopsy as outpt once stable, he should be off of aspirin for 7 days prior to biopsy - serologies neg so far - will add hydralazine
[2018-09-04] MEDS: hydrALAZINE HCL 10 MG TABLET PO SCH ×2 (17:56→21:45)
[2018-09-04] MEDS: ATORVASTATIN CA 20 MG TABLET (FP) PO SCH (21:46)
[2018-09-05] MEDS: LIDOCAINE 5% TOPICAL PATCH TP SCH (00:49)
[2018-09-05] MEDS: INSULIN SLIDING SCALE (NOVOLOG) 1 VIAL SQ SCH ×4 (06:07→21:31)
[2018-09-05] MEDS: INSULIN (LEVEMIR) 100 UNITS/ML UNITS SQ SCH (06:07)
[2018-09-05] MEDS: ALBUTEROL SO4 2.5/IPRATROPIUM 0.5 INH SOL 3 ML VIAL.NEB. NEB SCH ×4 (06:08→20:20)
--- NOTE | 2018-09-05 07:43 | PN ---
Progress Note, Physician Chief Complaint: abdominal pain from coughing History of Present Illness: This is a 58 y/o man with a PMHx of HTN, DM, Renal Insufficiency, Anemia. Who presents to the ED with his family for SOB, fever, productive yellow cough, elevated BP and BS. The patient is [place] speaking and the daughter translated. Per the daughter the patient had subjective fevers of 103 at home yesterday and he was having difficulty breathing and generalized bodyaches. Per the daughter patient was suppose to have a procedure for a "artery blockage" but it was cancelled due to his kidney function. Patient missed his home meds today due to feeling ill. Patient denies dizziness, CP, palpitations, AP, N/V/D , constipation, dysuria. Patient had recent travel [place] 2 months ago. - Current Medication List Current Medications: Active Medications Acetaminophen (Tylenol -) 650 mg PO Q6H PRN PRN Reason: PAIN OR FEVER Last Admin: 08/30/18 20:35 Dose: 650 mg Albuterol/Ipratropium (Duoneb -) 1 amp NEB RTID [facility] Last Admin: 09/05/18 06:08 Dose: 1 amp Amlodipine Besylate (Norvasc -) 10 mg PO DAILY [facility] Last Admin: 09/04/18 10:52 Dose: 10 mg Aspirin (Ecotrin -) 81 mg PO DAILY [facility] Last Admin: 09/04/18 10:52 Dose: 81 mg Atorvastatin Calcium (Lipitor -) 20 mg PO HS [facility] Last Admin: 09/04/18 21:46 Dose: 20 mg Budesonide/Formoterol Fumarate (Symbicort 160/4.5mcg -) 2 puff IH BID [facility] Last Admin: 09/04/18 21:47 Dose: 2 puff Carvedilol (Coreg -) 25 mg PO BID [facility] Last Admin: 09/04/18 21:45 Dose: 25 mg Guaifenesin (Robitussin Dm -) 10 ml PO Q6H PRN PRN Reason: COUGH Last Admin: 09/02/18 18:06 Dose: 10 ml Hydralazine HCl (Apresoline -) 10 mg PO BID [facility] Last Admin: 09/04/18 21:45 Dose: 10 mg Ceftriaxone Sodium 1 gm/ (Dextrose) 50 mls @ 100 mls/hr IVPB DAILY [facility]; Protocol Last Admin: 09/04/18 10:53 Dose: 100 mls/hr Insulin Aspart (Novolog Vial Sliding Scale -) 1 vial SQ ACHS [facility]; Protocol Last Admin: 09/05/18 06:07 Dose: Not Given Insulin Detemir (Levemir Vial) 20 units SQ DAILY@0700 [facility] Last Admin: 09/05/18 06:07 Dose: 20 units Lidocaine (Lidoderm Patch -) 1 patch TP DAILY@0000 [facility] Last Admin: 09/05/18 00:49 Dose: 1 patch Melatonin (Melatonin) 5 mg PO HS PRN PRN Reason: INSOMNIA Last Admin: 08/31/18 22:04 Dose: 5 mg Miscellaneous (Lidoderm Patch Removal) 1 each MC DAILY@1200 [facility] Last Admin: 09/04/18 11:54 Dose: Not Given Pantoprazole Sodium (Protonix -) 40 mg PO DAILY [facility] Last Admin: 09/04/18 10:52 Dose: 40 mg - Objective Vital Signs: Vital Signs Temperature 98.3 F 09/05/18 06:48 Pulse Rate 75 09/05/18 06:48 Respiratory Rate 18 09/05/18 06:48 Blood Pressure 150/88 09/05/18 06:48 O2 Sat by Pulse Oximetry (%) 100 09/04/18 21:00 Constitutional: Yes: Well Nourished, No Distress, Calm Eyes: Yes: WNL, Conjunctiva Clear, EOM Intact HENT: Yes: WNL, Atraumatic, Normocephalic Neck: Yes: WNL, Supple, Trachea Midline Cardiovascular: Yes: WNL, Regular Rate and Rhythm Respiratory: Yes: WNL, Regular, Diminished (at bases) Gastrointestinal: Yes: WNL, Normal Bowel Sounds, Soft, Other (abdmonial muscle pain secondary to coughing) Genitourinary: Yes: WNL Musculoskeletal: Yes: WNL Extremities: Yes: WNL Edema: Yes Edema: LLE: Trace, RLE: Trace Peripheral Pulses WNL: Yes Integumentary: Yes: WNL Neurological: Yes: WNL, Alert, Oriented ...Motor Strength: WNL Psychiatric: Yes: WNL, Alert, Oriented Labs: CBC, BMP 09/04/18 06:51 09/04/18 06:55 - ....Imaging Chest X-ray: Report Reviewed, Image Reviewed (fluid remains in right fissure, increased artelectasis on right) Problem List - Problems (1) Community acquired pneumonia Assessment/Plan: continue azithromycin and ceftriaxone, tomorrow is 7 days, will discuss with Pulm to stop -will consult with pulm to change abx to augmentin 875MG PO BID 7D -cultures as follows: Bcx NGTD, Sputum for AFB negatie x 3, legionalla negative , sputum cx 08/31 with GPC, GPB -all serologies negative thus far -continue bronchdilators -supplemental O2 to mainatin sat >92 % -needs F/U chest CT post discharge Code(s): J18.9 - PNEUMONIA, UNSPECIFIED ORGANISM Qualifiers: Laterality: right Lung location: middle lobe of lung Qualified Code(s): J18.1 - Lobar pneumonia, unspecified organism (2) HLD (hyperlipidemia) Assessment/Plan: continue home nagel of atrovastatin low cholesterol/low fat diet Code(s): E78.5 - HYPERLIPIDEMIA, UNSPECIFIED (3) HTN (hypertension) Assessment/Plan: remains hypertensive continue dose of carvedilol to 25mg bid, BP better on higher dose conitue hydralazine and norvasc Code(s): I10 - ESSENTIAL (PRIMARY) HYPERTENSION (4) [id number] kidney injury Assessment/Plan: Cr 3.4 now,unclear to baseline -cont to monitor renal function - renal ultrasound reviewed by Dr Martin and no acute pathology seen -urine lytes: Una95, Ucr77.5, FeNa 2.95%, suggestive or pre-renal state given any absence of pathology on renal US -IVF stopped, continue to monitor volume status -renal biopsy when more stable must be off ASA x 1 week prior Code(s): N17.9 - ACUTE KIDNEY FAILURE, UNSPECIFIED; N18.9 - CHRONIC KIDNEY DISEASE, UNSPECIFIED (5) Pleuritic chest pain Assessment/Plan: tylenol PRN for pain encourage patient to use a pillow to splint when coughing Code(s): R07.81 - PLEURODYNIA (6) Prophylactic measure Assessment/Plan: FEN low fat/cholesterol diabetic diet daily CMP DVT Proph heparin 5000 u bid Dispo mainatin as in patient full code discharge planning Code(s): Z29.9 - ENCOUNTER FOR PROPHYLACTIC MEASURES, UNSPECIFIED (7) Diabetes Assessment/Plan: BGM AC/qhs novolog sliding scale continue am levemir Code(s): E11.9 - TYPE 2 DIABETES MELLITUS WITHOUT COMPLICATIONS (8) Lung mass Assessment/Plan: BL pleural effusion, RML opacity will need further imaging as outpt SPutum for AFB neagtive x QUANTIFERON pending & HIV negative Code(s): R91.8 - OTHER NONSPECIFIC ABNORMAL FINDING OF LUNG FIELD (9) Knee pain, acute Assessment/Plan: continue lidoderm patch to knee Code(s): M25.569 - PAIN IN UNSPECIFIED KNEE Visit type - Emergency Visit Emergency Visit: Yes ED Registration Date: 08/27/18 Care time: The patient presented to the Emergency Department on the above date and was hospitalized for further evaluation of their emergent condition. - New Patient This patient is new to me today: No - Critical Care Critical Care patient: No - Discharge Referral Referred to [facility] No
[2018-09-05] MEDS ORDERED: DEXTROSE 5%-WATER - 50 ML IVPB ONE (08:54)
[2018-09-05] MEDS ORDERED: cefTRIAXone SODIUM 1 GM VIAL ONE (08:54)
--- NOTE | 2018-09-05 10:15 | PN ---
Progress Note (short form) - Note Progress Note: PULMONARY States breathing is improving. No fevers or chills. Vital Signs Period Temp Pulse Resp BP Sys/Newman Pulse Ox Last 24 Hr 98 F-98.3 F 73-75 18-20 150-167/65-88 100 Gen: NAD at rest Heart: RRR Lung: decreased breath sounds at the bases Abd: soft, nontender Ext: no edema CBC, BMP 09/04/18 06:51 09/04/18 06:55 Active Medications Acetaminophen (Tylenol -) 650 mg PO Q6H PRN PRN Reason: PAIN OR FEVER Last Admin: 08/30/18 20:35 Dose: 650 mg Albuterol/Ipratropium (Duoneb -) 1 amp NEB RTID [facility] Last Admin: 09/05/18 07:25 Dose: 1 amp Amlodipine Besylate (Norvasc -) 10 mg PO DAILY [facility] Last Admin: 09/04/18 10:52 Dose: 10 mg Aspirin (Ecotrin -) 81 mg PO DAILY [facility] Last Admin: 09/04/18 10:52 Dose: 81 mg Atorvastatin Calcium (Lipitor -) 20 mg PO HS [facility] Last Admin: 09/04/18 21:46 Dose: 20 mg Budesonide/Formoterol Fumarate (Symbicort 160/4.5mcg -) 2 puff IH BID [facility] Last Admin: 09/04/18 21:47 Dose: 2 puff Carvedilol (Coreg -) 25 mg PO BID [facility] Last Admin: 09/04/18 21:45 Dose: 25 mg Guaifenesin (Robitussin Dm -) 10 ml PO Q6H PRN PRN Reason: COUGH Last Admin: 09/02/18 18:06 Dose: 10 ml Hydralazine HCl (Apresoline -) 10 mg PO BID [facility] Last Admin: 09/04/18 21:45 Dose: 10 mg Ceftriaxone Sodium 1 gm/ (Dextrose) 50 mls @ 100 mls/hr IVPB DAILY [facility]; Protocol Last Admin: 09/04/18 10:53 Dose: 100 mls/hr Insulin Aspart (Novolog Vial Sliding Scale -) 1 vial SQ ACHS [facility]; Protocol Last Admin: 09/05/18 06:07 Dose: Not Given Insulin Detemir (Levemir Vial) 20 units SQ DAILY@0700 [facility] Last Admin: 09/05/18 06:07 Dose: 20 units Lidocaine (Lidoderm Patch -) 1 patch TP DAILY@0000 [facility] Last Admin: 09/05/18 00:49 Dose: 1 patch Melatonin (Melatonin) 5 mg PO HS PRN PRN Reason: INSOMNIA Last Admin: 08/31/18 22:04 Dose: 5 mg Miscellaneous (Lidoderm Patch Removal) 1 each MC DAILY@1200 [facility] Last Admin: 09/04/18 11:54 Dose: Not Given Pantoprazole Sodium (Protonix -) 40 mg PO DAILY [facility] Last Admin: 09/04/18 10:52 Dose: 40 mg A/P r/o Pneumonia Acute on Chronic Renal Failure HTN DM Hyperlipidmemia Anemia - complete antibiotics - CT chest findings suggestive of fluid in the fissue, will need outpt f/u of chest imaging to ensure resolution - renal work up in progress - DVT prophylaxis
[2018-09-05] MEDS: CEFTRIAXONE 1 GM in DEXTROSE 5%-WATER - 50 ML IVPB SCH (10:24)
[2018-09-05] MEDS: PANTOPRAZOLE 40 MG TABLET (FP) PO SCH (10:24)
[2018-09-05] MEDS: ASPIRIN COATED 81 MG TABLET.EC PO SCH (10:24)
[2018-09-05] MEDS: amLODIPine BESYLATE 10 MG TABLET (FP) PO SCH (10:24)
[2018-09-05] MEDS: CARVEDILOL 25 MG TABLET (FP) PO SCH ×2 (10:24→21:27)
[2018-09-05] MEDS: hydrALAZINE HCL 10 MG TABLET PO SCH ×2 (10:25→21:27)
[2018-09-05] MEDS: BUDESONIDE/FORMETEROL FUMARATE 160/4.5 mcg INHALER IH SCH ×2 (10:26→21:27)
[2018-09-05] MEDS: LIDOCAINE PATCH REMOVAL MC SCH (12:48)
[2018-09-05 12:55] VITALS: BMI 33.7
--- NOTE | 2018-09-05 16:52 | PN ---
Progress Note, Physician History of Present Illness: Pt seen and examined at bedside. He is awake and alert. He denies fevers or chills. - Current Medication List Current Medications: Active Medications Acetaminophen (Tylenol -) 650 mg PO Q6H PRN PRN Reason: PAIN OR FEVER Last Admin: 08/30/18 20:35 Dose: 650 mg Albuterol/Ipratropium (Duoneb -) 1 amp NEB RTID [facility] Last Admin: 09/05/18 14:25 Dose: 1 amp Amlodipine Besylate (Norvasc -) 10 mg PO DAILY [facility] Last Admin: 09/05/18 10:24 Dose: 10 mg Aspirin (Ecotrin -) 81 mg PO DAILY [facility] Last Admin: 09/05/18 10:24 Dose: 81 mg Atorvastatin Calcium (Lipitor -) 20 mg PO HS [facility] Last Admin: 09/04/18 21:46 Dose: 20 mg Budesonide/Formoterol Fumarate (Symbicort 160/4.5mcg -) 2 puff IH BID [facility] Last Admin: 09/05/18 10:26 Dose: 2 puff Carvedilol (Coreg -) 25 mg PO BID [facility] Last Admin: 09/05/18 10:24 Dose: 25 mg Guaifenesin (Robitussin Dm -) 10 ml PO Q6H PRN PRN Reason: COUGH Last Admin: 09/02/18 18:06 Dose: 10 ml Hydralazine HCl (Apresoline -) 10 mg PO BID [facility] Last Admin: 09/05/18 10:25 Dose: 10 mg Ceftriaxone Sodium 1 gm/ (Dextrose) 50 mls @ 100 mls/hr IVPB DAILY [facility]; Protocol Last Admin: 09/05/18 10:24 Dose: 100 mls/hr Insulin Aspart (Novolog Vial Sliding Scale -) 1 vial SQ ACHS [facility]; Protocol Last Admin: 09/05/18 12:48 Dose: Not Given Insulin Detemir (Levemir Vial) 20 units SQ DAILY@0700 [facility] Last Admin: 09/05/18 06:07 Dose: 20 units Lidocaine (Lidoderm Patch -) 1 patch TP DAILY@0000 [facility] Last Admin: 09/05/18 00:49 Dose: 1 patch Melatonin (Melatonin) 5 mg PO HS PRN PRN Reason: INSOMNIA Last Admin: 08/31/18 22:04 Dose: 5 mg Miscellaneous (Lidoderm Patch Removal) 1 each MC DAILY@1200 [facility] Last Admin: 09/05/18 12:48 Dose: Not Given Pantoprazole Sodium (Protonix -) 40 mg PO DAILY [facility] Last Admin: 09/05/18 10:24 Dose: 40 mg - Objective Vital Signs: Vital Signs Temperature 98.3 F 09/05/18 14:08 Pulse Rate 76 09/05/18 14:08 Respiratory Rate 18 09/05/18 14:08 Blood Pressure 146/82 09/05/18 14:08 O2 Sat by Pulse Oximetry (%) 100 09/04/18 21:00 Constitutional: Yes: Calm Eyes: Yes: Conjunctiva Clear HENT: Yes: Atraumatic Neck: Yes: Supple Cardiovascular: Yes: S1, S2 Respiratory: Yes: CTA Bilaterally, On Nasal O2 Gastrointestinal: Yes: Soft Genitourinary: Yes: WNL Musculoskeletal: Yes: WNL Edema: No Neurological: Yes: Oriented Psychiatric: Yes: Oriented Labs: CBC, BMP 09/04/18 06:51 09/04/18 06:55 Problem List - Problems (1) CKD (chronic kidney disease) Code(s): N18.9 - CHRONIC KIDNEY DISEASE, UNSPECIFIED (2) Anemia Code(s): D64.9 - ANEMIA, UNSPECIFIED (3) Community acquired pneumonia Code(s): J18.9 - PNEUMONIA, UNSPECIFIED ORGANISM Qualifiers: Laterality: right Lung location: middle lobe of lung Qualified Code(s): J18.1 - Lobar pneumonia, unspecified organism (4) HTN (hypertension) Code(s): I10 - ESSENTIAL (PRIMARY) HYPERTENSION Assessment/Plan Current Medications Generic Name Dose Route Start Last Admin Trade Name Freq PRN Reason Stop Dose Admin Acetaminophen 650 mg 08/28/18 20:29 08/30/18 20:35 Tylenol - PO 650 mg Q6H PRN Administration PAIN OR FEVER Albuterol/Ipratropium 1 amp 09/01/18 08:00 09/05/18 14:25 Duoneb - NEB 1 amp RTID [facility] Administration Amlodipine Besylate 10 mg 08/31/18 13:48 09/05/18 10:24 Norvasc - PO 10 mg DAILY [facility] Administration Aspirin 81 mg 08/28/18 10:00 09/05/18 10:24 Ecotrin - PO 81 mg DAILY [facility] Administration Atorvastatin Calcium 20 mg 08/28/18 22:00 09/04/18 21:46 Lipitor - PO 20 mg HS [facility] Administration Budesonide/Formoterol Fumarate 2 puff 09/01/18 13:45 09/05/18 10:26 Symbicort 160/4.5mcg - IH 2 puff BID [facility] Administration Carvedilol 25 mg 09/02/18 14:57 09/05/18 10:24 Coreg - PO 25 mg BID [facility] Administration Guaifenesin 10 ml 08/27/18 19:28 09/02/18 18:06 Robitussin Dm - PO 10 ml Q6H PRN Administration COUGH Hydralazine HCl 10 mg 09/04/18 16:54 09/05/18 10:25 Apresoline - PO 10 mg BID [facility] Administration Ceftriaxone Sodium 1 gm/ 50 mls @ 100 mls/hr 08/30/18 13:30 09/05/18 10:24 Dextrose IVPB 100 mls/hr DAILY [facility] Administration Protocol Insulin Aspart 1 vial 08/27/18 22:00 09/05/18 12:48 Novolog Vial Sliding Scale - SQ Not Given ACHS [facility] Protocol Insulin Detemir 20 units 08/28/18 10:00 09/05/18 06:07 Levemir Vial SQ 20 units DAILY@0700 [facility] Administration Lidocaine 1 patch 09/01/18 00:00 09/05/18 00:49 Lidoderm Patch - TP 1 patch DAILY@0000 [facility] Administration Melatonin 5 mg 08/28/18 20:29 08/31/18 22:04 Melatonin PO 5 mg HS PRN Administration INSOMNIA Miscellaneous 1 each 09/01/18 12:00 09/05/18 12:48 Lidoderm Patch Removal MC Not Given DAILY@1200 [facility] Pantoprazole Sodium 40 mg 08/28/18 10:00 09/05/18 10:24 Protonix - PO 40 mg DAILY [facility] Administration Impression 1. CKD with unclear baseline 2. HTN 3. DM 4. HLD 5. possible lung mass 6. nephrotic range proteinuria 7. hyperkalemia Plan - check bmp in am - kidney biopsy as outpt once stable, he should be off of aspirin for 7 days prior to biopsy - serologies neg so far - bp is improving - can titrate hydralazine dose as needed - pt follows with Dr Aguiar in the office
[2018-09-05] MEDS: guaiFENesin/D-METHORPHAN HB 10 ML UNIT-DOSE CUPS PO PRN (17:09)
[2018-09-05] MEDS: ATORVASTATIN CA 20 MG TABLET (FP) PO SCH (21:27)
[2018-09-05] MEDS: MELATONIN 5 MG TABLETS PO PRN (21:27)
[2018-09-06] MEDS: LIDOCAINE 5% TOPICAL PATCH TP SCH (00:20)
[2018-09-06] MEDS: INSULIN SLIDING SCALE (NOVOLOG) 1 VIAL SQ SCH ×2 (06:31→11:58)
[2018-09-06] MEDS: INSULIN (LEVEMIR) 100 UNITS/ML UNITS SQ SCH (07:01)
[2018-09-06] MEDS ORDERED: INSULIN (LEVEMIR) 100 UNITS/ML UNITS SQ ONE (07:07)
[2018-09-06 07:37] LABS: BASO % 1.1 % (0-2.0); EOS % 4.9 % (0-4.5); HEMATOCRIT 23.8 % (35.4-49); LYMPH % 17.4 % (8-40); MCH 28.8 pg (25.7-33.7); MCHC 33.8 g/dl (32.0-35.9); MEAN CELL VOLUME 85.3 fl (80-96); MEAN PLT VOLUME 7.7 fl (7.5-11.1); MONO % 10.7 % (3.8-10.2); NEUT % 65.9 % (42.8-82.8); PLATELET COUNT 253 K/MM3 (134-434); RBC 2.79 M/mm3 (4.00-5.60); RDW 14.2 % (11.9-15.9); WHITE BLOOD COUNT 5.6 K/mm3 (4.0-10.0)
[2018-09-06 08:04] LABS: ALBUMIN 2.7 g/dl (3.4-5.0); BILIRUBIN,TOTAL 0.5 mg/dL (0.2-1); BLOOD UREA NITROGEN 44.8 mg/dL (7-18); CALCIUM 8.1 mg/dL (8.5-10.1); CREATININE 3.2 mg/dL (0.55-1.3); MAGNESIUM 2.1 mg/dL (1.8-2.4); TOT PROT 6.4 g/dl (6.4-8.2)
[2018-09-06] MEDS: ALBUTEROL SO4 2.5/IPRATROPIUM 0.5 INH SOL 3 ML VIAL.NEB. NEB SCH ×2 (08:30→14:56)
--- NOTE | 2018-09-06 08:46 | PN ---
Progress Note, Physician Chief Complaint: abdominal pain from coughing History of Present Illness: This is a 58 y/o man with a PMHx of HTN, DM, Renal Insufficiency, Anemia. Who presents to the ED with his family for SOB, fever, productive yellow cough, elevated BP and BS. The patient is Welsh speaking and the daughter translated. Per the daughter the patient had subjective fevers of 103 at home yesterday and he was having difficulty breathing and generalized bodyaches. Per the daughter patient was suppose to have a procedure for a "artery blockage" but it was cancelled due to his kidney function. Patient missed his home meds today due to feeling ill. Patient denies dizziness, CP, palpitations, AP, N/V/D , constipation, dysuria. Patient had recent travel [place] 2 months ago. - Current Medication List Current Medications: Active Medications Acetaminophen (Tylenol -) 650 mg PO Q6H PRN PRN Reason: PAIN OR FEVER Last Admin: 08/30/18 20:35 Dose: 650 mg Albuterol/Ipratropium (Duoneb -) 1 amp NEB RTID [facility] Last Admin: 09/05/18 20:20 Dose: 1 amp Amlodipine Besylate (Norvasc -) 10 mg PO DAILY [facility] Last Admin: 09/05/18 10:24 Dose: 10 mg Aspirin (Ecotrin -) 81 mg PO DAILY [facility] Last Admin: 09/05/18 10:24 Dose: 81 mg Atorvastatin Calcium (Lipitor -) 20 mg PO HS [facility] Last Admin: 09/05/18 21:27 Dose: 20 mg Budesonide/Formoterol Fumarate (Symbicort 160/4.5mcg -) 2 puff IH BID [facility] Last Admin: 09/05/18 21:27 Dose: 2 puff Carvedilol (Coreg -) 25 mg PO BID [facility] Last Admin: 09/05/18 21:27 Dose: 25 mg Guaifenesin (Robitussin Dm -) 10 ml PO Q6H PRN PRN Reason: COUGH Last Admin: 09/05/18 17:09 Dose: 10 ml Hydralazine HCl (Apresoline -) 10 mg PO BID [facility] Last Admin: 09/05/18 21:27 Dose: 10 mg Ceftriaxone Sodium 1 gm/ (Dextrose) 50 mls @ 100 mls/hr IVPB DAILY [facility]; Protocol Last Admin: 09/05/18 10:24 Dose: 100 mls/hr Insulin Aspart (Novolog Vial Sliding Scale -) 1 vial SQ ACHS [facility]; Protocol Last Admin: 09/06/18 06:31 Dose: Not Given Insulin Detemir (Levemir Vial) 20 units SQ DAILY@0700 [facility] Last Admin: 09/06/18 07:01 Dose: 20 units Lidocaine (Lidoderm Patch -) 1 patch TP DAILY@0000 [facility] Last Admin: 09/06/18 00:20 Dose: 1 patch Melatonin (Melatonin) 5 mg PO HS PRN PRN Reason: INSOMNIA Last Admin: 09/05/18 21:27 Dose: 5 mg Miscellaneous (Lidoderm Patch Removal) 1 each MC DAILY@1200 [facility] Last Admin: 09/05/18 12:48 Dose: Not Given Pantoprazole Sodium (Protonix -) 40 mg PO DAILY [facility] Last Admin: 09/05/18 10:24 Dose: 40 mg - Objective Vital Signs: Vital Signs Temperature 98.2 F 09/06/18 06:47 Pulse Rate 70 09/06/18 06:47 Respiratory Rate 20 09/06/18 06:47 Blood Pressure 108/57 L 09/06/18 06:47 O2 Sat by Pulse Oximetry (%) 100 09/04/18 21:00 Labs: CBC, BMP 09/06/18 07:10 09/06/18 07:10 Problem List - Problems (1) Community acquired pneumonia Code(s): J18.9 - PNEUMONIA, UNSPECIFIED ORGANISM Qualifiers: Laterality: right Lung location: middle lobe of lung Qualified Code(s): J18.1 - Lobar pneumonia, unspecified organism (2) HLD (hyperlipidemia) Code(s): E78.5 - HYPERLIPIDEMIA, UNSPECIFIED (3) HTN (hypertension) Code(s): I10 - ESSENTIAL (PRIMARY) HYPERTENSION (4) Fsvxb-de-nxdndwn kidney injury Code(s): N17.9 - ACUTE KIDNEY FAILURE, UNSPECIFIED; N18.9 - CHRONIC KIDNEY DISEASE, UNSPECIFIED (5) Pleuritic chest pain Code(s): R07.81 - PLEURODYNIA (6) Prophylactic measure Code(s): Z29.9 - ENCOUNTER FOR PROPHYLACTIC MEASURES, UNSPECIFIED (7) Diabetes Code(s): E11.9 - TYPE 2 DIABETES MELLITUS WITHOUT COMPLICATIONS (8) Lung mass Code(s): R91.8 - OTHER NONSPECIFIC ABNORMAL FINDING OF LUNG FIELD (9) Knee pain, acute Code(s): M25.569 - PAIN IN UNSPECIFIED KNEE
[2018-09-06] MEDS ORDERED: cefTRIAXone SODIUM 1 GM VIAL ONE (09:36)
[2018-09-06] MEDS ORDERED: DEXTROSE 5%-WATER - 50 ML IVPB ONE (09:36)
--- NOTE | 2018-09-06 09:39 | PN ---
Progress Note (short form) - Note Progress Note: PULMONARY Breathing slowly improving. No fevers or chills. Vital Signs Period Temp Pulse Resp BP Sys/Newman Pulse Ox Last 24 Hr 98.2 F-99.1 F 70-80 18-20 108-172/57-83 Gen: NAD at rest Heart: RRR Lung: decreased breath sounds at the bases Abd: soft, nontender Ext: no edema CBC, BMP 09/06/18 07:10 09/06/18 07:10 Active Medications Acetaminophen (Tylenol -) 650 mg PO Q6H PRN PRN Reason: PAIN OR FEVER Last Admin: 08/30/18 20:35 Dose: 650 mg Albuterol/Ipratropium (Duoneb -) 1 amp NEB RTID [facility] Last Admin: 09/06/18 08:30 Dose: 1 amp Amlodipine Besylate (Norvasc -) 10 mg PO DAILY [facility] Last Admin: 09/05/18 10:24 Dose: 10 mg Aspirin (Ecotrin -) 81 mg PO DAILY [facility] Last Admin: 09/05/18 10:24 Dose: 81 mg Atorvastatin Calcium (Lipitor -) 20 mg PO HS [facility] Last Admin: 09/05/18 21:27 Dose: 20 mg Budesonide/Formoterol Fumarate (Symbicort 160/4.5mcg -) 2 puff IH BID [facility] Last Admin: 09/05/18 21:27 Dose: 2 puff Carvedilol (Coreg -) 25 mg PO BID [facility] Last Admin: 09/05/18 21:27 Dose: 25 mg Guaifenesin (Robitussin Dm -) 10 ml PO Q6H PRN PRN Reason: COUGH Last Admin: 09/05/18 17:09 Dose: 10 ml Hydralazine HCl (Apresoline -) 10 mg PO BID [facility] Last Admin: 09/05/18 21:27 Dose: 10 mg Ceftriaxone Sodium 1 gm/ (Dextrose) 50 mls @ 100 mls/hr IVPB DAILY [facility]; Protocol Last Admin: 09/05/18 10:24 Dose: 100 mls/hr Insulin Aspart (Novolog Vial Sliding Scale -) 1 vial SQ ACHS [facility]; Protocol Last Admin: 09/06/18 06:31 Dose: Not Given Insulin Detemir (Levemir Vial) 20 units SQ DAILY@0700 [facility] Last Admin: 09/06/18 07:01 Dose: 20 units Lidocaine (Lidoderm Patch -) 1 patch TP DAILY@0000 [facility] Last Admin: 09/06/18 00:20 Dose: 1 patch Melatonin (Melatonin) 5 mg PO HS PRN PRN Reason: INSOMNIA Last Admin: 09/05/18 21:27 Dose: 5 mg Miscellaneous (Lidoderm Patch Removal) 1 each MC DAILY@1200 [facility] Last Admin: 09/05/18 12:48 Dose: Not Given Pantoprazole Sodium (Protonix -) 40 mg PO DAILY [facility] Last Admin: 09/05/18 10:24 Dose: 40 mg A/P r/o Pneumonia Acute on Chronic Renal Failure HTN DM Hyperlipidmemia Anemia - complete antibiotics, can likely d/c as this is day 8 - CT chest findings suggestive of fluid in the fissue, will need outpt f/u of chest imaging to ensure resolution - renal work up in progress - DVT prophylaxis - can be discharged home from pulmonary standpoint
[2018-09-06] MEDS: hydrALAZINE HCL 10 MG TABLET PO SCH (10:18)
[2018-09-06] MEDS: PANTOPRAZOLE 40 MG TABLET (FP) PO SCH (10:19)
[2018-09-06] MEDS: CARVEDILOL 25 MG TABLET (FP) PO SCH (10:19)
[2018-09-06] MEDS: amLODIPine BESYLATE 10 MG TABLET (FP) PO SCH (10:19)
[2018-09-06] MEDS: ASPIRIN COATED 81 MG TABLET.EC PO SCH (10:19)
[2018-09-06] MEDS: BUDESONIDE/FORMETEROL FUMARATE 160/4.5 mcg INHALER IH SCH (10:21)
[2018-09-06] MEDS: CEFTRIAXONE 1 GM in DEXTROSE 5%-WATER - 50 ML IVPB SCH (10:22)
[2018-09-06] MEDS: LIDOCAINE PATCH REMOVAL MC SCH (11:58)
--- NOTE | 2018-09-06 14:40 | DS ---
Physical Examination Vital Signs: Vital Signs Temperature 98.1 F 09/06/18 10:00 Pulse Rate 77 09/06/18 13:29 Respiratory Rate 20 09/06/18 10:00 Blood Pressure 162/90 09/06/18 10:00 O2 Sat by Pulse Oximetry (%) 92 L 09/06/18 13:29 Constitutional: Yes: Well Nourished, No Distress, Calm Eyes: Yes: WNL, Conjunctiva Clear, EOM Intact HENT: Yes: WNL, Atraumatic, Normocephalic Neck: Yes: WNL, Supple, Trachea Midline Cardiovascular: Yes: WNL, Regular Rate and Rhythm Respiratory: Yes: WNL, Regular, CTA Bilaterally Gastrointestinal: Yes: WNL, Normal Bowel Sounds, Soft Renal/: Yes: WNL Musculoskeletal: Yes: WNL Extremities: Yes: WNL Edema: No Peripheral Pulses WNL: Yes Integumentary: Yes: WNL Neurological: Yes: WNL, Alert, Oriented ...Motor Strength: WNL Psychiatric: Yes: WNL, Alert, Oriented Labs: CBC, BMP 09/06/18 07:10 09/06/18 07:10 Discharge Summary Reason For Visit: COMMUNITY ACQUIRED PNEUMONIA Current Active Problems Govjp-md-cpxgtra kidney injury (Acute) Anemia (Acute) CKD (chronic kidney disease) (Acute) Community acquired pneumonia (Acute) Diabetes (Acute) HLD (hyperlipidemia) (Acute) HTN (hypertension) (Acute) Knee pain, acute (Acute) Lung mass (Acute) Pleuritic chest pain (Acute) Prophylactic measure (Acute) Hospital Course: Chest X-ray: fluid remains in right fissure, increased atelectasis on right Problem List - Problems (1) Community acquired pneumonia Assessment/Plan: completed course of azithromycin and ceftriaxone -all cultures NGTD: Bcx NGTD, Sputum for AFB negatie x 3, legionalla negative -all serologies negative thus far -continue bronchdilators at home and spiriva -pre/post done and ne need for supplemental O2 -needs F/U chest CT post discharge (2) HLD (hyperlipidemia) Assessment/Plan: continue home nagel of atrovastatin low cholesterol/low fat diet (3) HTN (hypertension) Assessment/Plan: blood pressure better controlled continue dose of carvedilol to 25mg bid, BP better on higher dose continue hydralazine and norvasc Code(s): I10 - ESSENTIAL (PRIMARY) HYPERTENSION (4) Nithu-wi-sagglry kidney injury Assessment/Plan: Cr 3.4 now,unclear to baseline - renal ultrasound reviewed by Dr Martin and no acute pathology seen -urine lytes: Una95, Ucr77.5, FeNa 2.95%, suggestive or pre-renal state given any absence of pathology on renal US -IVF stopped, continue to monitor volume status -renal biopsy as outpatient. Will coordinate with Dr Thomas and Dr Yanes. must be off ASA x 1 week prior (5) Pleuritic chest pain Assessment/Plan: resolving tylenol PRN for pain encourage patient to use a pillow to splint when coughing (6) Prophylactic measure Assessment/Plan: FEN low fat/cholesterol diabetic diet daily CMP DVT Proph heparin 5000 u bid while in patient -no need for additional anticoagulation at home (7) Diabetes Assessment/Plan: BGM AC/qhs novolog sliding scale levemir while patient was admitted. Can resume back home medication of Tresiba at conversion rate of 24 units (8) Lung mass Assessment/Plan: BL pleural effusion, RML opacity will need further imaging as outpt SPutum for AFB neagtive x QUANTIFERON pending & HIV negative - Instructions Diet, Activity, Other Instructions: This is a 58 y/o man with a PMHx of HTN, DM, Renal Insufficiency, Anemia. Who presents to the ED with his family for SOB, fever, productive yellow cough, elevated BP and BS. The patient is [place] speaking and the daughter translated. Per the daughter the patient had subjective fevers of 103 at home yesterday and he was having difficulty breathing and generalized body aches. Per the daughter patient was suppose to have a procedure for a "artery blockage " but it was cancelled due to his kidney function. Patient missed his home meds today due to feeling ill. Patient denies dizziness, CP, palpitations, AP, N/V/D , constipation, dysuria. Patient had recent travel [place] 2 months ago. Patient was ruled out for TB and infectious pulmonary diseases. Continue ceftriaxone x 8 days and treated for COPD exacerbation with bronchodilatirs and inhaled steroids. Patient to have follow up Chest CTA as outpatient. MARIANO resolving and nephrology recommending renal biopsy as an outpatient with Dr Aguiar. Patient to call for appointment-office is closed [phone] Rubi from Interventional radiology is aware of upcomming need for Bx. Patient will be instructed on when to stop aspirin Make resume low protein, low potassium diet. CHF/pulmonary rehab program through [facility] being set up by [facility]. Referrals: Corby De Dios MD [Staff Physician] - Felipe Aguiar MD [Staff Physician] - Disposition: [facility] - Home Medications Comprehensive Discharge Medication List: Ambulatory Orders Acetaminophen [Tylenol .Regular Strength -] 650 mg PO Q6H PRN tablet 09/06/18 Albuterol Sulfate Inhaler - [Ventolin HFA Inhaler -] 2 puff IH Q4H PRN #1 inhaler 09/06/18 Alcohol Antiseptic Pads [Alcohol Prep Pads] 1 each TP ACHS #1 500s 09/06/18 Amlodipine Besylate [Norvasc -] 10 mg PO DAILY #30 tablet 09/06/18 Aspirin Coated [Ecotrin -] 81 mg PO DAILY #30 tablet.ec 09/06/18 Atorvastatin Ca [Lipitor] 20 mg PO HS #30 tablet 09/06/18 Budesonide/Formeterol Fumarate [SYMBICORT 160/4.5mcg -] 2 puff IH BID #1 inhaler 09/06/18 Carvedilol [Coreg -] 25 mg PO BID #60 tablet 09/06/18 Guaifenesin Dm [Robitussin Dm -] 10 ml PO Q6H PRN cup 09/06/18 Insulin Degludec [Tresiba Flextouch U-100] 24 unit SQ DAILY #1 insuln.pen Insulin Sliding Scale [Novolog Vial Sliding Scale -] 1 vial SQ ACHS #100 units 09/06/18 Lidocaine 5% Patch [Lidoderm -] 1 patch TP DAILY@0000 #30 patch 09/06/18 Melatonin 5 mg PO HS PRN tab 09/06/18 Pantoprazole Sodium [Protonix -] 40 mg PO DAILY #30 tablet.ec 09/06/18 Syring-Needl,Disp,Insul,0.3 ml [Insulin Syringe] 1 each ACHS #100 disp.syrin 09/06/18 hydrALAZINE HCL [Apresoline -] 10 mg PO BID #60 tablet 09/06/18 This patient is new to me today: No Emergency Visit: Yes ED Registration Date: 08/27/18 Care time: The patient presented to the Emergency Department on the above date and was hospitalized for further evaluation of their emergent condition. Critical Care patient: No - Discharge Referral Referred to [facility] No
[2018-09-06 14:59] VITALS: BP 152/76; PULSE 71; TEMP 97.9
--- NOTE | 2018-09-06 15:37 | PN ---
Progress Note, Physician History of Present Illness: Pt seen and examined at bedside. He is awake and alert. He denies shortness of breath. - Current Medication List Current Medications: Active Medications Acetaminophen (Tylenol -) 650 mg PO Q6H PRN PRN Reason: PAIN OR FEVER Last Admin: 08/30/18 20:35 Dose: 650 mg Albuterol/Ipratropium (Duoneb -) 1 amp NEB RTID [facility] Last Admin: 09/06/18 14:56 Dose: 1 amp Amlodipine Besylate (Norvasc -) 10 mg PO DAILY [facility] Last Admin: 09/06/18 10:19 Dose: 10 mg Aspirin (Ecotrin -) 81 mg PO DAILY [facility] Last Admin: 09/06/18 10:19 Dose: 81 mg Atorvastatin Calcium (Lipitor -) 20 mg PO HS [facility] Last Admin: 09/05/18 21:27 Dose: 20 mg Budesonide/Formoterol Fumarate (Symbicort 160/4.5mcg -) 2 puff IH BID [facility] Last Admin: 09/06/18 10:21 Dose: 2 puff Carvedilol (Coreg -) 25 mg PO BID [facility] Last Admin: 09/06/18 10:19 Dose: 25 mg Guaifenesin (Robitussin Dm -) 10 ml PO Q6H PRN PRN Reason: COUGH Last Admin: 09/05/18 17:09 Dose: 10 ml Hydralazine HCl (Apresoline -) 10 mg PO BID [facility] Last Admin: 09/06/18 10:18 Dose: 10 mg Insulin Aspart (Novolog Vial Sliding Scale -) 1 vial SQ [facility]; Protocol Last Admin: 09/06/18 11:58 Dose: Not Given Insulin Detemir (Levemir Vial) 20 units SQ DAILY@0700 [facility] Last Admin: 09/06/18 07:01 Dose: 20 units Lidocaine (Lidoderm Patch -) 1 patch TP DAILY@0000 [facility] Last Admin: 09/06/18 00:20 Dose: 1 patch Melatonin (Melatonin) 5 mg PO HS PRN PRN Reason: INSOMNIA Last Admin: 09/05/18 21:27 Dose: 5 mg Miscellaneous (Lidoderm Patch Removal) 1 each MC DAILY@1200 [facility] Last Admin: 09/06/18 11:58 Dose: 1 each Pantoprazole Sodium (Protonix -) 40 mg PO DAILY [facility] Last Admin: 09/06/18 10:19 Dose: 40 mg - Objective Vital Signs: Vital Signs Temperature 97.9 F 09/06/18 14:58 Pulse Rate 71 09/06/18 14:58 Respiratory Rate 18 09/06/18 14:58 Blood Pressure 152/76 09/06/18 14:58 O2 Sat by Pulse Oximetry (%) 92 L 09/06/18 13:29 Constitutional: Yes: Calm Eyes: Yes: Conjunctiva Clear HENT: Yes: Atraumatic Neck: Yes: Supple Cardiovascular: Yes: S1, S2 Respiratory: Yes: CTA Bilaterally Gastrointestinal: Yes: Soft, Abdomen, Obese Genitourinary: Yes: WNL Musculoskeletal: Yes: WNL Edema: No Neurological: Yes: Oriented Psychiatric: Yes: Oriented Labs: CBC, BMP 09/06/18 07:10 09/06/18 07:10 Problem List - Problems (1) CKD (chronic kidney disease) Code(s): N18.9 - CHRONIC KIDNEY DISEASE, UNSPECIFIED (2) Anemia Code(s): D64.9 - ANEMIA, UNSPECIFIED (3) Community acquired pneumonia Code(s): J18.9 - PNEUMONIA, UNSPECIFIED ORGANISM Qualifiers: Laterality: right Lung location: middle lobe of lung Qualified Code(s): J18.1 - Lobar pneumonia, unspecified organism (4) HTN (hypertension) Code(s): I10 - ESSENTIAL (PRIMARY) HYPERTENSION Assessment/Plan Current Medications Generic Name Dose Route Start Last Admin Trade Name Freq PRN Reason Stop Dose Admin Acetaminophen 650 mg 08/28/18 20:29 08/30/18 20:35 Tylenol - PO 650 mg Q6H PRN Administration PAIN OR FEVER Albuterol/Ipratropium 1 amp 09/01/18 08:00 09/06/18 14:56 Duoneb - NEB 1 amp RTID [facility] Administration Amlodipine Besylate 10 mg 08/31/18 13:48 09/06/18 10:19 Norvasc - PO 10 mg DAILY [facility] Administration Aspirin 81 mg 08/28/18 10:00 09/06/18 10:19 Ecotrin - PO 81 mg DAILY [facility] Administration Atorvastatin Calcium 20 mg 08/28/18 22:00 09/05/18 21:27 Lipitor - PO 20 mg HS [facility] Administration Budesonide/Formoterol Fumarate 2 puff 09/01/18 13:45 09/06/18 10:21 Symbicort 160/4.5mcg - IH 2 puff BID [facility] Administration Carvedilol 25 mg 09/02/18 14:57 09/06/18 10:19 Coreg - PO 25 mg BID [facility] Administration Guaifenesin 10 ml 08/27/18 19:28 09/05/18 17:09 Robitussin Dm - PO 10 ml Q6H PRN Administration COUGH Hydralazine HCl 10 mg 09/04/18 16:54 09/06/18 10:18 Apresoline - PO 10 mg BID [facility] Administration Insulin Aspart 1 vial 08/27/18 22:00 09/06/18 11:58 Novolog Vial Sliding Scale - SQ Not Given ACHS [facility] Protocol Insulin Detemir 20 units 08/28/18 10:00 09/06/18 07:01 Levemir Vial SQ 20 units DAILY@0700 [facility] Administration Lidocaine 1 patch 09/01/18 00:00 09/06/18 00:20 Lidoderm Patch - TP 1 patch DAILY@0000 [facility] Administration Melatonin 5 mg 08/28/18 20:29 09/05/18 21:27 Melatonin PO 5 mg HS PRN Administration INSOMNIA Miscellaneous 1 each 09/01/18 12:00 09/06/18 11:58 Lidoderm Patch Removal MC 1 each DAILY@1200 [facility] Administration Pantoprazole Sodium 40 mg 08/28/18 10:00 09/06/18 10:19 Protonix - PO 40 mg DAILY [facility] Administration Impression 1. CKD with unclear baseline 2. HTN 3. DM 4. HLD 5. possible lung mass 6. nephrotic range proteinuria 7. hyperkalemia Plan - pt will need outpt follow up with Dr Aguiar - he agrees to come to the office on Wednesday - he will likely need a kidney biopsy - cont to monitor bp - serologies neg - discussed with medical team
== END 2018-09-06 16:59 | disposition home health service (06) | DRG 139 ==
LOC: FER 16:02 → FM/S 18:40 → J8W 08-29 19:52
PROVIDERS: ADMIT Internal Medicine; ATTEND Nurse Practitioner Acute Care
PROC: 3E0F7GC Introduction of Other Therapeutic Substance into Respiratory Tract, Via Natural or Artificial Opening (ICD-10-PCS; principal; 2018-08-27)
DX: J18.1 Lobar pneumonia, unspecified organism (principal); N17.9 Acute kidney failure, unspecified; E11.22 Type 2 diabetes mellitus with diabetic chronic kidney disease; E87.5 Hyperkalemia; J44.1 Chronic obstructive pulmonary disease with (acute) exacerbation; I12.9 Hypertensive chronic kidney disease with stage 1 through stage 4 chronic kidney disease, or unspecified chronic kidney disease; N18.9 Chronic kidney disease, unspecified; E66.9 Obesity, unspecified; I25.10 Atherosclerotic heart disease of native coronary artery without angina pectoris; Z68.33 Body mass index [BMI] 33.0-33.9, adult; D64.9 Anemia, unspecified; E78.5 Hyperlipidemia, unspecified; Z79.4 Long term (current) use of insulin; Z91.14 Patient's other noncompliance with medication regimen; G47.00 Insomnia, unspecified; R91.8 Other nonspecific abnormal finding of lung field; R07.81 Pleurodynia; R10.13 Epigastric pain; M25.569 Pain in unspecified knee; J98.11 Atelectasis
CPT/HCPCS: 36415; 71046-TC-FY; 71250-TC; 76775-TC; 80048; 80053; 81003; 81015; 82436; 82565; 82570; 82607; 82728; 82746; 82962; 83036; 83516; 83520; 83540; 83550; 83735; 84100; 84133; 84155; 84156; 84165; 84300; 84439; 84443; 85025; 86038; 86225; 86256; 86480; 86704; 86706; 86707; 86708; 86709; 87040; 87070; 87086; 87116; 87205; 87206; 87340; 87389; 87522; 87804; 87899; 93005; 93010; 94640; 94761; 99282-25; J1644; J7030

== ENCOUNTER 2018-12-19 01:36 | Observation (INO) | payer OTHER ==
--- NOTE | 2018-12-19 02:12 | PDOC ---
History of Present Illness - General Stated Complaint: ELEVATED BLOOD PRESSURE,ELEVATED BLOOD SUGAR Time Seen by Provider: 12/19/18 02:01 - History of Present Illness Initial Comments: 58 year old male with PMH of ESRD (M,W,F), HTN, DM, left foot infection (on port administered abx), and + stress (2018) presenting one episode of chest pain at 20:00 (7 hours prior) and generally feeling unwell. States that he is currently pain free but feels generally uneasy. His CP was central and radiates to his left side. He did have some SOB and weakness with the chest pain but currently denies nausea, vomiting, SOB, fevers, chills, or other symptoms. 12/19/18 02:41 Past History - Past Medical History Allergies/Adverse Reactions: Allergies Allergy/AdvReac Type Severity Reaction Status Date / Time No Known Allergies Allergy Verified 08/27/18 16:04 Home Medications: Ambulatory Orders Acetaminophen [Tylenol .Regular Strength -] 650 mg PO Q6H PRN tablet 09/06/18 Albuterol Sulfate Inhaler - [Ventolin HFA Inhaler -] 2 puff IH Q4H PRN #1 inhaler 09/06/18 Alcohol Antiseptic Pads [Alcohol Prep Pads] 1 each TP ACHS #1 500s 09/06/18 Amlodipine Besylate [Norvasc -] 10 mg PO DAILY #30 tablet 09/06/18 Aspirin Coated [Ecotrin -] 81 mg PO DAILY #30 tablet.ec 09/06/18 Atorvastatin Ca [Lipitor] 20 mg PO HS #30 tablet 09/06/18 Budesonide/Formeterol Fumarate [SYMBICORT 160/4.5mcg -] 2 puff IH BID #1 inhaler 09/06/18 Carvedilol [Coreg -] 25 mg PO BID #60 tablet 09/06/18 Guaifenesin Dm [Robitussin Dm -] 10 ml PO Q6H PRN cup 09/06/18 Insulin Degludec [Tresiba Flextouch U-100] 24 unit SQ DAILY #1 insuln.pen Insulin Sliding Scale [Novolog Vial Sliding Scale -] 1 vial SQ ACHS #100 units 09/06/18 Lancets [Lancets Ultra Thin] 1 each MC ACHS #100 each 09/06/18 Lidocaine 5% Patch [Lidoderm -] 1 patch TP DAILY@0000 #30 patch 09/06/18 Melatonin 5 mg PO HS PRN tab 09/06/18 Miscellaneous Medical Supply [Glucometer Device] 1 each .ROUTE ASDIR #1 kit 04/26 Miscellaneous Medical Supply [Glucometer Test Strips #100] 1 each .ROUTE ASDIR # 1 box 09/06/18 Pantoprazole Sodium [Protonix -] 40 mg PO DAILY #30 tablet.ec 09/06/18 Syring-Needl,Disp,Insul,0.3 ml [Insulin Syringe] 1 each [facility] #100 disp.syrin 09/06/18 hydrALAZINE HCL [Apresoline -] 10 mg PO BID #60 tablet 09/06/18 Anemia: No Asthma: No Cancer: No Cardiac Disorders: No CVA: No COPD: No DVT: No Dementia: No Diabetes: Yes GI Disorders: No Disorders: No HTN: Yes Hypercholesterolemia: Yes Kidney Stones: No Liver Disease: No Psychiatric Problems: No Seizures: No Thyroid Disease: No Lung CA: No - Surgical History Appendectomy: Yes - Psycho Social/Smoking Cessation Hx Smoking History: Never smoked Have you smoked in the past 12 months: No Hx Alcohol Use: No Drug/Substance Use Hx: No Substance Use Type: None Hx Substance Use Treatment: No Review of Systems - Review of Systems Constitutional: No: Chills, Diaphoresis, Fever, Loss of Appetite HEENTM: No: Eye Pain, Blurred Vision, Tearing Respiratory: No: Cough, Orthopnea, Shortness of Breath, Wheezing Cardiac (ROS): Yes: Chest Pain, Chest Tightness. No: Irregular Heart Rate ABD/GI: No: Diarrhea, Nausea, Vomiting : No: Dysuria, Discharge, Frequency Musculoskeletal: No: Back Pain, Gout, Joint Pain Integumentary: Yes: Lesions (left 5th toe necrosis). No: Change in Color Neurological: No: Headache, Numbness, Paresthesia Psychiatric: No: Anxiety, Depression Endocrine: No: Excessive Sweating, Flushing, Increased Hunger *Physical Exam - Physical Exam General Appearance: Yes: Nourished, Appropriately Dressed. No: Apparent Distress HEENT: positive: EOMI, GHASSAN, Normal ENT Inspection, Normal Voice Neck: positive: Trachea midline, Normal Thyroid, Supple. negative: Tender, Rigid Respiratory/Chest: positive: Lungs Clear, Normal Breath Sounds, Other (right sided tunneled dialysis catheter). negative: Chest Tender, Respiratory Distress , Accessory Muscle Use Cardiovascular: positive: Regular Rhythm, Regular Rate Gastrointestinal/Abdominal: positive: Normal Bowel Sounds, Flat, Soft. negative : Tender Lymphatic: negative: Adenopathy, Tenderness Musculoskeletal: positive: Normal Inspection. negative: Decreased Range of Motion Extremity: positive: Normal Capillary Refill, Normal Range of Motion. negative : Normal Inspection (left 5th toe dry gangrene), Tender Integumentary: positive: Normal Color, Dry, Warm, Other Neurologic: positive: Fully Oriented, Alert, Normal Mood/Affect, Normal Response , Motor Strength 5/5 Heart Score/ECG Review - History History: Slightly suspicious - Electrocardiogram EKG: Normal - Age Age: 45-65 - Risk Factors Risk Factors Heart Score: Yes Hx Hypercholesterolemia, Yes Hx Hypertension, Yes Hx Diabetes Based on the list above the patient has:: >/=3 risk factors or Hx atherosclerotic disease - Troponin Troponin: </= normal limit (Patient had hisoty rof + stress) - Score Heart Score - Total: 3 ED Treatment Course - LABORATORY CBC & Chemistry Diagram: 12/19/18 02:30 12/19/18 02:30 Medical Decision Making - Medical Decision Making 58 year old male with ESRD (M,W,F) and + stress but comorbidities preventing cath presenting with chest pain. Overall story mildly concerning but given history of + stress and ESRD, patient should be admitted for further cards workup. EKG demonstrating rate 80, MN interval 180, QRS 80, QTc 412, normal axis and no ST or T-wave changes with overall similarity to ekg from 08/24. Will admit to tele obs. 12/19/18 03:09 Discharge - Discharge Information Problems reviewed: Yes Clinical Impression/Diagnosis: Chest pain, rule out acute myocardial infarction Condition: Stable - Admission Yes - Follow up/Referral Referrals: Jace Tatum [Primary Care Provider] - - Patient Discharge Instructions - Post Discharge Activity
[2018-12-19 02:23] VITALS: BMI 27.3
[2018-12-19 03:11] LABS: BASO % 1.3 % (0-2.0); EOS % 6.5 % (0-4.5); HEMOGLOBIN 9.5 GM/dL (11.7-16.9); LYMPH % 25.9 % (8-40); MCH 27.9 pg (25.7-33.7); MCHC 32.9 g/dl (32.0-35.9); MEAN CELL VOLUME 84.8 fl (80-96); MEAN PLT VOLUME 8.5 fl (7.5-11.1); NEUT % 55.3 % (42.8-82.8); PLATELET COUNT 220 K/MM3 (134-434); RBC 3.42 M/mm3 (4.00-5.60); RDW 15.6 % (11.9-15.9); WHITE BLOOD COUNT 5.1 K/mm3 (4.0-10.0)
--- NOTE | 2018-12-19 03:23 | PDOC ---
Attending Attestation - Resident Resident Name: Aaliyah Kelly - ED Attending Attestation I have performed the following: I have examined & evaluated the patient, The case was reviewed & discussed with the resident, I agree w/resident's findings & plan, Exceptions are as noted - HPI HPI: 12/19/18 03:15 58 M with h/o ESRD HD MWF, HTN, DM, L foot infection on IV abx, CAD, presenting to ED with chest pain. Pt reports transient episode of chest pain associated with SOB. The pain radiated to his L arm. Pt reports the pain resolved prior to arrival to ED. Denies any new leg swelling. Denies orthopnea. Denies CLEMENTE. No F/ C. No cough. - Physicial Exam PE: 12/19/18 03:23 "GENERAL: Awake, alert, and fully oriented, in no acute distress. HEAD: No signs of trauma EYES: PERRLA, EOMI, sclera anicteric, conjunctiva clear ENT: Auricles normal inspection, hearing grossly normal, nares patent, oropharynx clear without exudates. Moist mucosa NECK: Nontender, no stepoffs, Normal ROM, supple, no lymphadenopathy, JVD, or masses LUNGS: Breath sounds equal, clear to auscultation bilaterally. No wheezes, and no crackles HEART: Regular rate and rhythm, normal S1 and S2, no murmurs, rubs or gallops ABDOMEN: Soft, nontender, normoactive bowel sounds. No guarding, no rebound. No masses EXTREMITIES: Normal range of motion, no edema. No clubbing or cyanosis. No cords, erythema, or tenderness NEUROLOGICAL: Cranial nerves II through XII intact. 5/5 strength and sensation in all extremities, Normal speech, normal gait, normal cerebellar function SKIN: Warm, Dry, normal turgor, no rashes or lesions noted. - Medical Decision Making 12/19/18 03:23 58 M with h/o CAD presenting with chest pain. WIll r/o ACS with serial trops. EKG with no new ischemic changes. - Labs, trop - CXR - Admit tele
[2018-12-19 03:39] LABS: ALBUMIN 3.2 g/dl (3.4-5.0); ALK PHOS 92 U/L (45-117); ANION GAP 9 MMOL/L (8-16); BILIRUBIN,TOTAL 0.2 mg/dL (0.2-1); BLOOD UREA NITROGEN 51.6 mg/dL (7-18); CALCIUM 8.9 mg/dL (8.5-10.1); CHLORIDE 108 mmol/L (98-107); CO2 22 mmol/L (21-32); CREATININE 4.8 mg/dL (0.55-1.3); GLUCOSE,RANDOM 148 mg/dL (74-106); N-TERMINAL BNP 2487.9 pg/ml (5-125); POTASSIUM 4.4 mmol/L (3.5-5.1); SGOT/AST 22 U/L (15-37); SGPT/ALT 27 U/L (13-61); SODIUM 139 mmol/L (136-145); TOT PROT 7.8 g/dl (6.4-8.2)
[2018-12-19 03:42] LABS: INR 0.95 (0.83-1.09); PROTHROMBIN TIME (PATIENT) 11.2 SEC (9.7-13.0)
[2018-12-19] MEDS ORDERED: ASPIRIN 81 MG CHEWABLE TABLETS PO ONE ×2 (04:25→04:26)
[2018-12-19] MEDS ORDERED: ASPIRIN 81 MG CHEWABLE TABLETS ONE (04:28)
--- NOTE | 2018-12-19 04:48 | HP ---
Admitting History and Physical - Primary Care Physician PCP: Jace Tatum - Admission Chief Complaint: Chest Pain History of Present Illness: This is a 58 y/o man with a PMhx of ESRD (HD- M,W,F), HTN, DM, + Stress Test ( 2018), L- foot infection ([facility]- IV ABX ). Who presents to the ED with chest pain radiating to L- side, with SOB and weakness while at rest started at 2000 last night. Patient reports having similar episodes in the past. Patient reports receiving infusion treatments for a Necrotic L- toe #5 with a [employer] [facility]. Patient reports last dialysis was on Wednesday. Patient denies fever, chills, cough, dizziness, palpitations, AP, N/V/D, constipation. Patient is Malay speaking attempted to use [employer] Line- transmitting not clear, ED RN who speaks Malay assisted with translating. History Source: Patient Limitations to Obtaining History: Language Barrier (Malay) - Past Medical History Cardiovascular: Yes: HTN, Hyperlipdemia Pulmonary: Yes: Pneumonia, Other (prolonged 2 month hospitalization ) Renal/: Yes: Renal Inusuff, Hemodialysis Endocrine: Yes: Diabetes Mellitus - Past Surgical History Past Surgical History: Yes: Appendectomy - Smoking History Smoking history: Never smoked Have you smoked in the past 12 months: No - Alcohol/Substance Use Hx Alcohol Use: Yes (Occasional Beer) History of Substance Use: reports: None - Social History Usual Living Arrangement: Yes: With Spouse Do you think of yourself as: Straight/Heterosexual ADL: Independent History of Recent Travel: No Home Medications - Allergies Allergies/Adverse Reactions: Allergies Allergy/AdvReac Type Severity Reaction Status Date / Time No Known Allergies Allergy Verified 08/27/18 16:04 - Home Medications Home Medications: Ambulatory Orders Acetaminophen [Tylenol .Regular Strength -] 650 mg PO Q6H PRN tablet 09/06/18 Albuterol Sulfate Inhaler - [Ventolin HFA Inhaler -] 2 puff IH Q4H PRN #1 inhaler 09/06/18 Alcohol Antiseptic Pads [Alcohol Prep Pads] 1 each TP ACHS #1 500s 09/06/18 Amlodipine Besylate [Norvasc -] 10 mg PO DAILY #30 tablet 09/06/18 Aspirin Coated [Ecotrin -] 81 mg PO DAILY #30 tablet.ec 09/06/18 Atorvastatin Ca [Lipitor] 20 mg PO HS #30 tablet 09/06/18 Budesonide/Formeterol Fumarate [SYMBICORT 160/4.5mcg -] 2 puff IH BID #1 inhaler 09/06/18 Carvedilol [Coreg -] 25 mg PO BID #60 tablet 09/06/18 Guaifenesin Dm [Robitussin Dm -] 10 ml PO Q6H PRN cup 09/06/18 Insulin Degludec [Tresiba Flextouch U-100] 24 unit SQ DAILY #1 insuln.pen Insulin Sliding Scale [Novolog Vial Sliding Scale -] 1 vial SQ ACHS #100 units 09/06/18 Lancets [Lancets Ultra Thin] 1 each ACHS #100 each 09/06/18 Lidocaine 5% Patch [Lidoderm -] 1 patch TP DAILY@0000 #30 patch 09/06/18 Melatonin 5 mg PO HS PRN tab 09/06/18 Miscellaneous Medical Supply [Glucometer Device] 1 each .ROUTE ASDIR #1 kit 04/26 Miscellaneous Medical Supply [Glucometer Test Strips #100] 1 each .ROUTE ASDIR # 1 box 09/06/18 Pantoprazole Sodium [Protonix -] 40 mg PO DAILY #30 tablet.ec 09/06/18 Syring-Needl,Disp,Insul,0.3 ml [Insulin Syringe] 1 each ACHS #100 disp.syrin 09/06/18 hydrALAZINE HCL [Apresoline -] 10 mg PO BID #60 tablet 09/06/18 Family Medical History Family Hx Cardiac Disorders: Mother (HTN), Father ([place] age 52) Family Hx Diabetes: Mother Review of Systems - Review of Systems Constitutional: reports: Weakness Eyes: reports: No Symptoms HENT: reports: No Symptoms Neck: reports: No Symptoms Cardiovascular: reports: Chest Pain, Shortness of Breath Respiratory: reports: SOB Gastrointestinal: reports: No Symptoms Genitourinary: reports: No Symptoms Breasts: reports: No Symptoms Reported Musculoskeletal: reports: No Symptoms Integumentary: reports: No Symptoms Neurological: reports: No Symptoms Endocrine: reports: No Symptoms Hematology/Lymphatic: reports: No Symptoms Psychiatric: reports: No Symptoms Pain Intensity: 6 Physical Examination Vital Signs: Vital Signs Temperature 98.0 F 12/19/18 03:03 Pulse Rate 78 12/19/18 03:03 Respiratory Rate 20 12/19/18 03:03 Blood Pressure 130/70 12/19/18 03:03 O2 Sat by Pulse Oximetry (%) 98 12/19/18 03:03 Constitutional: Yes: Well Nourished, No Distress, Calm Eyes: Yes: WNL, Conjunctiva Clear, EOM Intact, PERRL HENT: Yes: WNL, Atraumatic, Normocephalic Neck: Yes: WNL, Supple, Trachea Midline Cardiovascular: Yes: WNL, Regular Rate and Rhythm, S1, S2, Other (CP reproducible to LCW on palpation Permacath to RCW) Respiratory: Yes: WNL, Regular, CTA Bilaterally Gastrointestinal: Yes: WNL, Normal Bowel Sounds, Soft. No: Tenderness, Tenderness, Epigastrium Breast(s): Yes: WNL Musculoskeletal: Yes: WNL Edema: No Peripheral Pulses WNL: Yes Wound/Incision: Yes: Other (necrotic left toe #5) Neurological: Yes: WNL, Alert, Oriented, Cran Nerves II-XII Intact ...Motor Strength: WNL Psychiatric: Yes: WNL, Alert, Oriented Labs: CBC, BMP 12/19/18 02:30 12/19/18 02:30 Imaging - Results Chest X-ray: Image Reviewed EKG: Image Reviewed Problem List - Problems (1) Chest pain, rule out acute myocardial infarction Code(s): R07.9 - CHEST PAIN, UNSPECIFIED (2) ESRD (end stage renal disease) on dialysis Code(s): N18.6 - END STAGE RENAL DISEASE; Z99.2 - DEPENDENCE ON RENAL DIALYSIS (3) CKD (chronic kidney disease) Code(s): N18.9 - CHRONIC KIDNEY DISEASE, UNSPECIFIED (4) Diabetes Code(s): E11.9 - TYPE 2 DIABETES MELLITUS WITHOUT COMPLICATIONS (5) Wound of left foot Code(s): S91.302A - UNSPECIFIED OPEN WOUND, LEFT FOOT, INITIAL ENCOUNTER (6) HLD (hyperlipidemia) Code(s): E78.5 - HYPERLIPIDEMIA, UNSPECIFIED (7) HTN (hypertension) Code(s): I10 - ESSENTIAL (PRIMARY) HYPERTENSION Assessment/Plan This is a 58 y/o man placed in Telemetry Observation for Chest Pain r/o ACS for further evaluation of their emergent condition. Plan: Cardiovascular: Chest Pain r/o ACS HTN HLD Tele observation HEART Score 4 Cardiac monitoring Serial Enzymes Appreciate Cardiology consult Echo in am Asa Continue home meds Renal: ESRD HD- M,W,F Appreciate Nephrology consult Continue home meds Avoid nephrotoxic drugs Endocrine: Diabetes Mellitus stable BGMs ISS ID: Left Foot/Toe Infection Patient reports receiving treatments at [facility], will need to obtain records Appreciate ID consult Appreciate Vascular consult Appreciate Podiatry consult Neurovascular checks Monitor vitals Monitor CBC, BMP FEN Fluid Restriction Replete lytes prn Renal, Low Na, Diabetic Diet DVT ppx OOB SCDs Consider AC if LOS > 48hrs Dispo: Observation Visit type - Emergency Visit Emergency Visit: Yes ED Registration Date: 12/19/18 Care time: The patient presented to the Emergency Department on the above date and was hospitalized for further evaluation of their emergent condition. - New Patient This patient is new to me today: Yes Date on this admission: 12/19/18 - Critical Care Critical Care patient: No
[2018-12-19] MEDS ORDERED: ALBUTEROL SO4 8 GM HFA INHALER IH PRN (05:05)
[2018-12-19] MEDS ORDERED: ACETAMINOPHEN 325 MG TABLET (FP) PO PRN (05:05)
[2018-12-19] MEDS ORDERED: MELATONIN 5 MG TABLETS PO PRN (05:05)
[2018-12-19] MEDS: INSULIN SLIDING SCALE (NOVOLOG) 1 VIAL SQ SCH ×4 (05:59→23:14)
[2018-12-19 09:11] LABS: MAGNESIUM 2.3 mg/dL (1.8-2.4)
[2018-12-19] MEDS ORDERED: LIDOCAINE 5% TOPICAL PATCH ONE (09:22)
[2018-12-19] MEDS: hydrALAZINE HCL 10 MG TABLET PO SCH ×2 (09:35→23:04)
[2018-12-19] MEDS: CARVEDILOL 25 MG TABLET (FP) PO SCH ×2 (09:35→23:04)
[2018-12-19 09:41] LABS: EPI CELLS 1.7 /HPF (0-5/HPF); HYALINE CASTS 3 /lpf (0-8); URINE APPEARANCE CLEAR; URINE BACTERIA 1.5 /hpf (NEGATIVE); URINE BILIRUBIN NEGATIVE (NEGATIVE); URINE COLOR YELLOW; URINE GLUCOSE (UA) NEGATIVE (NEGATIVE); URINE KETONE NEGATIVE (NEGATIVE); URINE LEUK ESTERASE NEGATIVE (NEGATIVE); URINE NITRITE NEGATIVE (NEGATIVE); URINE PROTEIN 2+ (NEGATIVE); URINE RBC 1 /hpf (0-4); URINE UROBILINOGEN 0.2 mg/dL (0.2-1.0); URINE WBC 1 /hpf (0-5)
[2018-12-19] MEDS ORDERED: LIDOCAINE 5% TOPICAL PATCH TP SCH (10:00)
[2018-12-19] MEDS ORDERED: PANTOPRAZOLE 40 MG TABLET (FP) PO SCH (10:00)
[2018-12-19] MEDS ORDERED: amLODIPine BESYLATE 10 MG TABLET (FP) PO SCH (10:00)
--- NOTE | 2018-12-19 10:17 | PN ---
Progress Note, Physician Chief Complaint: Chest Pain Elevated Troponin History of Present Illness: Previous notes and events reviewed awake and alert NAD notified that troponin 0.69( initial troponin neg), R sided EKG shows possible anterolateral infarct patient current denies any chest pain or SOB - Current Medication List Current Medications: Active Medications Acetaminophen (Tylenol -) 650 mg PO Q6H PRN PRN Reason: PAIN OR FEVER Albuterol Sulfate (Ventolin Hfa Inhaler -) 2 puff IH Q4H PRN PRN Reason: ASTHMA Amlodipine Besylate (Norvasc -) 10 mg PO DAILY [facility] Last Admin: 12/19/18 09:36 Dose: 10 mg Aspirin (Ecotrin -) 81 mg PO DAILY [facility] Atorvastatin Calcium (Lipitor -) 20 mg PO HS [facility] Budesonide/Formoterol Fumarate (Symbicort 160/4.5mcg -) 2 puff IH BID [facility] Carvedilol (Coreg -) 25 mg PO BID [facility] Last Admin: 12/19/18 09:35 Dose: 25 mg Hydralazine HCl (Apresoline -) 10 mg PO BID [facility] Last Admin: 12/19/18 09:35 Dose: 10 mg Insulin Aspart (Novolog Vial Sliding Scale -) 1 vial SQ ACHS [facility]; Protocol Last Admin: 12/19/18 05:59 Dose: Not Given Lidocaine (Lidoderm Patch -) 1 patch TP DAILY [facility] Last Admin: 12/19/18 09:35 Dose: 1 patch Melatonin (Melatonin) 5 mg PO HS PRN PRN Reason: INSOMNIA Pantoprazole Sodium (Protonix -) 40 mg PO DAILY [facility] Last Admin: 12/19/18 09:36 Dose: 40 mg - Objective Vital Signs: Vital Signs Temperature 98.2 F 12/19/18 05:08 Pulse Rate 77 12/19/18 08:51 Respiratory Rate 18 12/19/18 08:51 Blood Pressure 153/77 12/19/18 08:51 O2 Sat by Pulse Oximetry (%) 98 12/19/18 08:51 Constitutional: Yes: No Distress, Calm Eyes: Yes: Conjunctiva Clear HENT: Yes: Atraumatic Cardiovascular: Yes: Regular Rate and Rhythm Respiratory: Yes: Regular, CTA Bilaterally Gastrointestinal: Yes: Normal Bowel Sounds, Soft Musculoskeletal: Yes: Muscle Weakness Extremities: Yes: WNL Edema: No Neurological: Yes: Alert, Oriented Psychiatric: Yes: Alert, Oriented Labs: CBC, BMP 12/19/18 02:30 12/19/18 02:30 INR, PTT INR 0.95 (0.83-1.09) 12/19/18 02:30 Problem List - Problems (1) Chest pain, rule out acute myocardial infarction Assessment/Plan: -Cardiology consult -Troponin 0.02~0.69 -R sided EKG and Posterior EKG STAT -Serial Cardiac Enzymes -Serial EKGs -tele monitoring Code(s): R07.9 - CHEST PAIN, UNSPECIFIED (2) ESRD (end stage renal disease) on dialysis Assessment/Plan: -Renal Consult -continue dialysis as scheduled -BUN/Cr 51.6/4.8 -monitor renal function daily -renal diet Code(s): N18.6 - END STAGE RENAL DISEASE; Z99.2 - DEPENDENCE ON RENAL DIALYSIS (3) Diabetes Assessment/Plan: -BGM ACHS -ISS -HgA1c -Endocrinology consult Code(s): E11.9 - TYPE 2 DIABETES MELLITUS WITHOUT COMPLICATIONS (4) HLD (hyperlipidemia) Assessment/Plan: -Atorvastatin Code(s): E78.5 - HYPERLIPIDEMIA, UNSPECIFIED (5) HTN (hypertension) Assessment/Plan: -Carvedilol, Hydralazine, Amlodipine -low Na diet Code(s): I10 - ESSENTIAL (PRIMARY) HYPERTENSION Assessment/Plan problem list dvt ppx
--- NOTE | 2018-12-19 10:25 | PN ---
Progress Note (short form) - Note Progress Note: ID consult dictated imp/reccd 58 yo man with DM and esrd/on hd - started one month ago via PC (renal MD dr le), recent admission to [facility] for gangrene fifth toe left foot- diagnosed with osteo and started on iv antibiotics-daily- 11/15 to 11/25 no fevers or chills reports toe is drying up and improving here with chest pain/sob - which have resolved +troponins chest pain- +troponins-elmer per cardiology daibetic foot ulcer-will contact [facility] and get records regaridng antiibotic management apparently on treatment for osteo- toe looks like dry gangrene now esrd/hd-per renal Problem List - Problems (1) Chest pain Code(s): R07.9 - CHEST PAIN, UNSPECIFIED (2) Elevated troponin Code(s): R79.89 - OTHER SPECIFIED ABNORMAL FINDINGS OF BLOOD CHEMISTRY (3) Diabetic infection of left foot Code(s): E11.628 - TYPE 2 DIABETES MELLITUS WITH OTHER SKIN COMPLICATIONS; L08.9 - LOCAL INFECTION OF THE SKIN AND SUBCUTANEOUS TISSUE, UNSP (4) ESRD (end stage renal disease) on dialysis Code(s): N18.6 - END STAGE RENAL DISEASE; Z99.2 - DEPENDENCE ON RENAL DIALYSIS
--- NOTE | 2018-12-19 11:08 | CONS ---
INFECTIOUS DISEASE CONSULTATION DATE OF CONSULTATION: DATE OF DICTATION: 12/19/2018 HISTORY: This is a 58-year-old man with a history of end-stage renal disease. He is on dialysis. He was last at [facility] August 27 through September 06 when he was hospitalized for community-acquired pneumonia. He was noted to have CKD at that time with plans for outpatient kidney biopsy. He was discharged to the community. He has now been on dialysis he reports for the last 1 month. He apparently has a history of a prior positive stress test, and he came to the emergency room with complaints of chest pain, shortness of breath radiating to his left side. He was recently hospitalized at [facility] from November 15 through November 25. At that time, he had an infected left foot ulcer, and he is on IV antibiotics via a line in his chest, which he states he is getting daily. He is unable to tell me what he is getting. He has no fevers or chills. He reports his foot has improved. There is no longer any drainage. He is [place]ib[place]ian speaking, and the history was obtained by his nurse, who is [place]ib[place]ian speaking. He has no nausea, vomiting, diarrhea, or dysuria. His chest pain is resolved. PAST MEDICAL HISTORY: Notable for hypertension, hyperlipidemia, a history of community-acquired pneumonia. He was here at [facility] and treated for this. CKD. He has been on hemodialysis now for a month. He has a history of diabetes. SURGICAL HISTORY: Notable for appendectomy. He has a PermCath in place as well as a central line in his chest wall for IV antibiotics. SOCIAL HISTORY: He lives with his spouse. No history of any travel and there is no history of any substance use. He is originally from the [place]. He has been residing in the [place] He has no known ill contacts. He is a nonsmoker. During his admission here in September, he was HIV tested and was HIV negative. During that admission as well, he was screened for TB, and his AFBs were all negative. ALLERGIES: He has no known drug allergies. MEDICATIONS: His medications at home include hydralazine, insulin, Protonix, melatonin, Coreg, Symbicort, Lipitor, Ecotrin, Norvasc, and albuterol inhaler. He is on an IV antibiotic daily at home. PHYSICAL EXAMINATION: General: He is awake and alert. He has no complaints. Vital Signs: He has no fever. Temperature is 98.2, pulse is 77, blood pressure 153/77, respiratory rate is 18. He is saturating 98% on room air. HEENT: He is normocephalic. His eyes are anicteric. Neck: Supple. Lungs: Clear to auscultation. Heart: Regular rate and rhythm. Abdomen: Soft, nontender. Extremities: Without edema. He has poor palpable pulses on both his feet. His feet are warm, and he has got a dry gangrene of the 5th of his left foot. There is no odor, and there is no drainage. Labs are notable for a white count of 5.1, hemoglobin 9.5, platelets are 220. His BUN 51, creatinine 4.8. His troponin this morning is 0.69. His LFTs are normal. His urinalysis is negative. No cultures were sent. He had a chest x-ray done that shows no signs of infiltrate or failure, and he has got a PermCath in place. In summary, this is a 58-year-old man admitted with: 1. Chest pain with positive troponins. Plan per cardiology. 2. Diabetic foot. Apparently, he is on long-term IV antibiotics. We will contact [facility] and get records regarding his antibiotic management. He was apparently on treatment for osteomyelitis. He does not know the name of any of the doctors involved. 3. Lastly, end-stage renal disease. Management for dialysis per renal. I spoke with Dr. Aguiar who recommended I reach the hospitalist at [facility] to get further details regarding his antibiotic management, which I will do. TIANNA TRAORE M.D. [id number]
--- NOTE | 2018-12-19 11:58 | CONSULT ---
Consult Consult Specialty:: Podiatry Reason for Consultation:: Gangarene 5th toe left - History of Present Illness Chief Complaint: gangarene 5th toe left History of Present Illness: pt of Dr. Delia turpin for gangarene / om left foot 5th toe and mpj. - Past Medical History Cardio/Vascular: Yes: HTN, Hyperlipdemia Pulmonary: Yes: Pneumonia, Other (prolonged 2 month hospitalization ) Renal/: Yes: Renal Inusuff, Hemodialysis Endocrine: Yes: Diabetes Mellitus - Past Surgical History Past Surgical History: Yes: Appendectomy - Alcohol/Substance Use Hx Alcohol Use: Yes (Occasional Beer) History of Substance Use: reports: None - Smoking History Smoking history: Never smoked Have you smoked in the past 12 months: No - Social History ADL: Independent History of Recent Travel: No Home Medications - Allergies Allergies/Adverse Reactions: Allergies Allergy/AdvReac Type Severity Reaction Status Date / Time No Known Allergies Allergy Verified 08/27/18 16:04 - Home Medications Home Medications: Ambulatory Orders Acetaminophen [Tylenol .Regular Strength -] 650 mg PO Q6H PRN tablet 09/06/18 Albuterol Sulfate Inhaler - [Ventolin HFA Inhaler -] 2 puff IH Q4H PRN #1 inhaler 09/06/18 Alcohol Antiseptic Pads [Alcohol Prep Pads] 1 each TP ACHS #1 500s 09/06/18 Amlodipine Besylate [Norvasc -] 10 mg PO DAILY #30 tablet 09/06/18 Aspirin Coated [Ecotrin -] 81 mg PO DAILY #30 tablet.ec 09/06/18 Atorvastatin Ca [Lipitor] 20 mg PO HS #30 tablet 09/06/18 Budesonide/Formeterol Fumarate [SYMBICORT 160/4.5mcg -] 2 puff IH BID #1 inhaler 09/06/18 Carvedilol [Coreg -] 25 mg PO BID #60 tablet 09/06/18 Guaifenesin Dm [Robitussin Dm -] 10 ml PO Q6H PRN cup 09/06/18 Insulin Degludec [Tresiba Flextouch U-100] 24 unit SQ DAILY #1 insuln.pen Insulin Sliding Scale [Novolog Vial Sliding Scale -] 1 vial SQ ACHS #100 units 09/06/18 Lancets [Lancets Ultra Thin] 1 each MC ACHS #100 each 09/06/18 Lidocaine 5% Patch [Lidoderm -] 1 patch TP DAILY@0000 #30 patch 09/06/18 Melatonin 5 mg PO HS PRN tab 09/06/18 Miscellaneous Medical Supply [Glucometer Device] 1 each .ROUTE ASDIR #1 kit 04/26 Miscellaneous Medical Supply [Glucometer Test Strips #100] 1 each .ROUTE ASDIR # 1 box 09/06/18 Pantoprazole Sodium [Protonix -] 40 mg PO DAILY #30 tablet.ec 09/06/18 Syring-Needl,Disp,Insul,0.3 ml [Insulin Syringe] 1 each ACHS #100 disp.syrin 09/06/18 hydrALAZINE HCL [Apresoline -] 10 mg PO BID #60 tablet 09/06/18 Physical Exam Vital Signs: Vital Signs Temperature 98.2 F 12/19/18 05:08 Pulse Rate 77 12/19/18 08:51 Respiratory Rate 18 12/19/18 08:51 Blood Pressure 153/77 12/19/18 08:51 O2 Sat by Pulse Oximetry (%) 98 12/19/18 08:51 Extremities: Yes: Other (gangarene 5th toe left, +mal odor, +localized) Labs: CBC, BMP 12/19/18 02:30 12/19/18 02:30 Assessment/Plan gangarene om? Vascular and ID on case. Discussed with carolinaar. Will evaluate for PVD. Will decide tx plan once circulation evaluated. Most likely wi ll need toe and possibly 5th met head resected. Will follow. Betadine dressing left foot.
--- NOTE | 2018-12-19 12:41 | EKG ---
Test Reason : Blood Pressure : / mmHG Vent. Rate : 066 BPM Atrial Rate : 066 BPM P-R Int : 172 ms QRS Dur : 084 ms QT Int : 398 ms P-R-T Axes : 012 -02 049 degrees QTc Int : 417 ms NORMAL SINUS RHYTHM ANTEROLATERAL INFARCT (CITED ON OR BEFORE 19-DEC-2018) ABNORMAL ECG WHEN COMPARED WITH ECG OF 19-DEC-2018 09:53, NO SIGNIFICANT CHANGE WAS FOUND Confirmed by VALENTIN AGUILAR MD ([id number]) on 12/19/2018 12:41:13 PM Referred By: Confirmed By:VALENTIN AGUILAR MD
--- NOTE | 2018-12-19 12:44 | EKG ---
Test Reason : Blood Pressure : / mmHG Vent. Rate : 067 BPM Atrial Rate : 067 BPM P-R Int : 162 ms QRS Dur : 086 ms QT Int : 390 ms P-R-T Axes : 013 003 073 degrees QTc Int : 412 ms NORMAL SINUS RHYTHM POSSIBLE ANTEROLATERAL INFARCT , AGE UNDETERMINED ABNORMAL ECG WHEN COMPARED WITH ECG OF 19-DEC-2018 02:30, FUSION COMPLEXES ARE NO LONGER PRESENT BORDERLINE CRITERIA FOR ANTEROLATERAL INFARCT ARE NOW PRESENT Confirmed by VALENTIN AGUILAR MD ([id number]) on 12/19/2018 12:44:04 PM Referred By: Confirmed By:VALENTIN AGUILAR MD
--- NOTE | 2018-12-19 12:51 | EKG ---
Test Reason : Blood Pressure : / mmHG Vent. Rate : 080 BPM Atrial Rate : 080 BPM P-R Int : 180 ms QRS Dur : 080 ms QT Int : 358 ms P-R-T Axes : 041 004 067 degrees QTc Int : 412 ms POOR DATA QUALITY, INTERPRETATION MAY BE ADVERSELY AFFECTED SINUS RHYTHM WITH FUSION COMPLEXES OTHERWISE NORMAL ECG WHEN COMPARED WITH ECG OF 02-SEP-2018 09:29, NONSPECIFIC T WAVE ABNORMALITY, IMPROVED IN LATERAL LEADS Confirmed by VALENTIN AGUILAR MD ([id number]) on 12/19/2018 12:51:05 PM Referred By: Confirmed By:VALENTIN AGUILAR MD
--- NOTE | 2018-12-19 13:10 | CON.CARD ---
Consult Consult Specialty:: Cardiology - History of Present Illness Chief Complaint: Chest pain History of Present Illness: 58 M HTN, DM and ESRD started HD about 3 weeks ago with ho PVD and gangrenous Lt 5th toe scheduled for amputation and recieving IV Abx. A stress test in 2018 showed inferolateral ischemia and was managed medically. Last night had 1.5 hours of SSCP without radiation. Pain relieved on its own and has not recurred. second TP set is elevated. He is chest pain free. Baseline has limited mobility to less than 1 block limited by weakness and pain in the extremities. - History Source History Provided By: Patient, Medical Record - Past Medical History Cardio/Vascular: Yes: HTN, Hyperlipdemia Pulmonary: Yes: Pneumonia, Other (prolonged 2 month hospitalization ) Renal/: Yes: Renal Inusuff, Hemodialysis Endocrine: Yes: Diabetes Mellitus - Past Surgical History Past Surgical History: Yes: Appendectomy - Alcohol/Substance Use Hx Alcohol Use: Yes (Occasional Beer) History of Substance Use: reports: None - Smoking History Smoking history: Never smoked Have you smoked in the past 12 months: No - Social History ADL: Independent History of Recent Travel: No Home Medications - Allergies Allergies/Adverse Reactions: Allergies Allergy/AdvReac Type Severity Reaction Status Date / Time No Known Allergies Allergy Verified 08/27/18 16:04 - Home Medications Home Medications: Ambulatory Orders Acetaminophen [Tylenol .Regular Strength -] 650 mg PO Q6H PRN tablet 09/06/18 Albuterol Sulfate Inhaler - [Ventolin HFA Inhaler -] 2 puff IH Q4H PRN #1 inhaler 09/06/18 Alcohol Antiseptic Pads [Alcohol Prep Pads] 1 each TP ACHS #1 500s 09/06/18 Amlodipine Besylate [Norvasc -] 10 mg PO DAILY #30 tablet 09/06/18 Aspirin Coated [Ecotrin -] 81 mg PO DAILY #30 tablet.ec 09/06/18 Atorvastatin Ca [Lipitor] 20 mg PO HS #30 tablet 09/06/18 Budesonide/Formeterol Fumarate [SYMBICORT 160/4.5mcg -] 2 puff IH BID #1 inhaler 09/06/18 Carvedilol [Coreg -] 25 mg PO BID #60 tablet 09/06/18 Guaifenesin Dm [Robitussin Dm -] 10 ml PO Q6H PRN cup 09/06/18 Insulin Degludec [Tresiba Flextouch U-100] 24 unit SQ DAILY #1 insuln.pen Insulin Sliding Scale [Novolog Vial Sliding Scale -] 1 vial SQ ACHS #100 units 09/06/18 Lancets [Lancets Ultra Thin] 1 each ACHS #100 each 09/06/18 Lidocaine 5% Patch [Lidoderm -] 1 patch TP DAILY@0000 #30 patch 09/06/18 Melatonin 5 mg PO HS PRN tab 09/06/18 Miscellaneous Medical Supply [Glucometer Device] 1 each .ROUTE ASDIR #1 kit 04/26 Miscellaneous Medical Supply [Glucometer Test Strips #100] 1 each .ROUTE ASDIR # 1 box 09/06/18 Pantoprazole Sodium [Protonix -] 40 mg PO DAILY #30 tablet.ec 09/06/18 Syring-Needl,Disp,Insul,0.3 ml [Insulin Syringe] 1 each ACHS #100 disp.syrin 09/06/18 hydrALAZINE HCL [Apresoline -] 10 mg PO BID #60 tablet 09/06/18 Review of Systems - Review of Systems Constitutional: reports: No Symptoms Eyes: reports: No Symptoms HENT: reports: No Symptoms Neck: reports: No Symptoms Cardiovascular: reports: Chest Pain. denies: Edema, Palpitations, Shortness of Breath Respiratory: reports: No Symptoms Gastrointestinal: reports: No Symptoms Vital Signs: Vital Signs Temperature 98.2 F 12/19/18 05:08 Pulse Rate 77 12/19/18 08:51 Respiratory Rate 18 12/19/18 08:51 Blood Pressure 153/77 12/19/18 08:51 O2 Sat by Pulse Oximetry (%) 98 12/19/18 08:51 Constitutional: Yes: Well Nourished, No Distress, Calm Eyes: Yes: Conjunctiva Clear, EOM Intact HENT: Yes: Atraumatic, Normocephalic Neck: Yes: Supple, Trachea Midline Respiratory: Yes: Regular, CTA Bilaterally Gastrointestinal: Yes: Normal Bowel Sounds, Soft Cardiovascular: Yes: Regular Rate and Rhythm JVD: No Carotid Bruit: No PMI: Non-Displaced Heart Sounds: Yes: S1, S2 Murmur: No: Systolic Murmur, Diastolic Murmur Musculoskeletal: Yes: WNL Extremities: Yes: WNL Edema: No Peripheral Pulses WNL: No (gangrenous ) - Other Data Labs, Other Data: CBC, BMP 12/19/18 02:30 12/19/18 02:30 INR, PTT INR 0.95 (0.83-1.09) 12/19/18 02:30 Troponin, BNP 12/19/18 12/19/18 02:30 08:25 Troponin I < 0.02 0.69 H* B-Natriuretic Peptide 2487.9 H Troponin, BNP 12/19/18 12/19/18 02:30 08:25 Troponin I < 0.02 0.69 H* B-Natriuretic Peptide 2487.9 H NSR nl Cantil and interval. No ST T changes. Problem List - Problems (1) Chest pain Code(s): R07.9 - CHEST PAIN, UNSPECIFIED (2) Elevated troponin Code(s): R79.89 - OTHER SPECIFIED ABNORMAL FINDINGS OF BLOOD CHEMISTRY Assessment/Plan 58 M CAD< ESRD, DM, HTN with PVD and gangrenous toe. In ER with CP and NSTEMI. Currently CP free. Transfer to [facility] for further management and consideration fro cardiac cath. Pt last received HD on wednesday. ASA 325mg po x1 Plavix 300mg x 1 Continue to monitor cardiac enzyme.
--- NOTE | 2018-12-19 13:12 | CONSULT ---
Consult Consult Specialty:: Nephrology Reason for Consultation:: ESRD - History of Present Illness Chief Complaint: chest pain History of Present Illness: Pt is a 58 year old male with pmhx of ESRD on HD MWF, HTN, DM, and left foot infection who presents to the ER with chest pain. He experienced it at 8 pm last night. He also had a few episodes over the last few weeks. The chest pain radiates to his left arm. He denies shortness of breath. He is awake and alert. He denies fevers or chills. He follows with Dr Aguiar. - History Source History Provided By: Patient, Medical Record - Past Medical History Cardio/Vascular: Yes: HTN, Hyperlipdemia Pulmonary: Yes: Pneumonia, Other (prolonged 2 month hospitalization ) Renal/: Yes: Renal Inusuff, Hemodialysis Endocrine: Yes: Diabetes Mellitus - Past Surgical History Past Surgical History: Yes: Appendectomy - Alcohol/Substance Use Hx Alcohol Use: Yes (Occasional Beer) History of Substance Use: reports: None - Smoking History Smoking history: Never smoked Have you smoked in the past 12 months: No - Social History ADL: Independent History of Recent Travel: No Home Medications - Allergies Allergies/Adverse Reactions: Allergies Allergy/AdvReac Type Severity Reaction Status Date / Time No Known Allergies Allergy Verified 08/27/18 16:04 - Home Medications Home Medications: Ambulatory Orders Acetaminophen [Tylenol .Regular Strength -] 650 mg PO Q6H PRN tablet 09/06/18 Albuterol Sulfate Inhaler - [Ventolin HFA Inhaler -] 2 puff IH Q4H PRN #1 inhaler 09/06/18 Alcohol Antiseptic Pads [Alcohol Prep Pads] 1 each TP ACHS #1 500s 09/06/18 Amlodipine Besylate [Norvasc -] 10 mg PO DAILY #30 tablet 09/06/18 Aspirin Coated [Ecotrin -] 81 mg PO DAILY #30 tablet.ec 09/06/18 Atorvastatin Ca [Lipitor] 20 mg PO HS #30 tablet 09/06/18 Budesonide/Formeterol Fumarate [SYMBICORT 160/4.5mcg -] 2 puff IH BID #1 inhaler 09/06/18 Carvedilol [Coreg -] 25 mg PO BID #60 tablet 09/06/18 Guaifenesin Dm [Robitussin Dm -] 10 ml PO Q6H PRN cup 09/06/18 Insulin Degludec [Tresiba Flextouch U-100] 24 unit SQ DAILY #1 insuln.pen Insulin Sliding Scale [Novolog Vial Sliding Scale -] 1 vial SQ ACHS #100 units 09/06/18 Lancets [Lancets Ultra Thin] 1 each ACHS #100 each 09/06/18 Lidocaine 5% Patch [Lidoderm -] 1 patch TP DAILY@0000 #30 patch 09/06/18 Melatonin 5 mg PO HS PRN tab 09/06/18 Miscellaneous Medical Supply [Glucometer Device] 1 each .ROUTE ASDIR #1 kit 04/26 Miscellaneous Medical Supply [Glucometer Test Strips #100] 1 each .ROUTE ASDIR # 1 box 09/06/18 Pantoprazole Sodium [Protonix -] 40 mg PO DAILY #30 tablet.ec 09/06/18 Syring-Needl,Disp,Insul,0.3 ml [Insulin Syringe] 1 each ACHS #100 disp.syrin 09/06/18 hydrALAZINE HCL [Apresoline -] 10 mg PO BID #60 tablet 09/06/18 Family Medical History Family History: Denies Review of Systems - Review of Systems Constitutional: reports: Malaise Eyes: reports: No Symptoms HENT: reports: No Symptoms Neck: reports: No Symptoms Cardiovascular: reports: Chest Pain. denies: Edema, Palpitations, Shortness of Breath Respiratory: reports: No Symptoms Gastrointestinal: reports: No Symptoms Genitourinary: reports: No Symptoms Musculoskeletal: reports: No Symptoms Integumentary: reports: No Symptoms Neurological: reports: No Symptoms Endocrine: reports: No Symptoms Hematology/Lymphatic: reports: No Symptoms Psychiatric: reports: No Symptoms Physical Exam Vital Signs: Vital Signs Temperature 98.2 F 12/19/18 05:08 Pulse Rate 77 12/19/18 08:51 Respiratory Rate 18 12/19/18 08:51 Blood Pressure 153/77 12/19/18 08:51 O2 Sat by Pulse Oximetry (%) 98 12/19/18 08:51 Constitutional: Yes: Calm Eyes: Yes: Conjunctiva Clear HENT: Yes: Atraumatic Neck: Yes: Supple Cardiovascular: Yes: S1, S2 Respiratory: Yes: CTA Bilaterally Gastrointestinal: Yes: Soft Renal/: Yes: WNL Musculoskeletal: Yes: WNL Edema: No Wound/Incision: Yes: Dressing Dry and Intact Neurological: Yes: Oriented Psychiatric: Yes: Oriented Labs: CBC, BMP 12/19/18 02:30 12/19/18 02:30 Laboratory Tests 12/19/18 12/19/18 12/19/18 02:30 02:30 08:25 Hgb 9.5 L Chloride 108 H BUN 51.6 H Creatinine 4.8 H Troponin I < 0.02 0.69 H* Imaging - Results Chest X-ray: Report Reviewed Assessment/Plan Current Medications Generic Name Dose Route Start Last Admin Trade Name Freq PRN Reason Stop Dose Admin Acetaminophen 650 mg 12/19/18 05:05 Tylenol - PO Q6H PRN PAIN OR FEVER Albuterol Sulfate 2 puff 12/19/18 05:05 Ventolin Hfa Inhaler - IH Q4H PRN ASTHMA Amlodipine Besylate 10 mg 12/19/18 10:00 12/19/18 09:36 Norvasc - PO 10 mg DAILY IRWIN Administration Aspirin 81 mg 12/20/18 10:00 Ecotrin - PO DAILY IRWIN Atorvastatin Calcium 20 mg 12/19/18 22:00 Lipitor - PO HS IRWIN Budesonide/Formoterol Fumarate 2 puff 12/19/18 10:00 Symbicort 160/4.5mcg - IH BID IRWIN Carvedilol 25 mg 12/19/18 10:00 12/19/18 09:35 Coreg - PO 25 mg BID IRWIN Administration Hydralazine HCl 10 mg 12/19/18 10:00 12/19/18 09:35 Apresoline - PO 10 mg BID IRWIN Administration Insulin Aspart 1 vial 12/19/18 07:00 12/19/18 05:59 Novolog Vial Sliding Scale - SQ Not Given ACHS [facility] Protocol Lidocaine 1 patch 12/19/18 10:00 12/19/18 09:35 Lidoderm Patch - TP 1 patch DAILY IRWIN Administration Melatonin 5 mg 12/19/18 05:05 Melatonin PO HS PRN INSOMNIA Pantoprazole Sodium 40 mg 12/19/18 10:00 12/19/18 09:36 Protonix - PO 40 mg DAILY IRWIN Administration Impression 1. ESRD 2. HTN 3. DM 4. HLD 5. chest pain 6. nephrotic range proteinuria Plan - follow cardiac enzymes - monitor on tele - cardio evaluation - will hold off HD today until cardiology sees pt - monitor for angina as it has been intermittent - monitor bp
--- NOTE | 2018-12-19 13:55 | ECHO ---
Name: CHRIS PERRY Exam:Adult Echocardiogram Study Date: 12/19/2018 11:09 AM Age: 58 yrs Reason For Study: Chest pain Height: 68 in Weight: 180 lb BSA: 2.0 m2 MMode/2D Measurements & Calculations IVSd: 1.0 cm Ao root diam: 2.8 cm LVIDd: 5.1 cm LA dimension: 3.7 cm LVIDs: 3.7 cm LVPWd: 0.99 cm EDV(Teich): 122.4 ml LVOT diam: 2.2 cm ESV(Teich): 57.1 ml LAV (MOD-bp): 83.0 ml Doppler Measurements & Calculations MV E max eleazar: 80.0 cm/sec Ao V2 max: 128.6 cm/sec MV A max eleazar: 76.5 cm/sec Ao max P.6 mmHg MV E/A: 1.0 MV dec time: 0.18 sec JOAQUIN(V,D): 2.4 cm2 LV V1 max P.7 mmHg MR max eleazar: 435.6 cm/sec LV V1 max: 81.8 cm/sec MR max P.9 mmHg TR max eleazar: 223.2 cm/sec Med Peak E' Eleazar: 6.4 cm/sec TR max P.0 mmHg Med E/e': 12.4 Lat Peak E' Eleazar: 8.8 cm/sec Lat E/e': 9.1 Procedure A complete two-dimensional transthoracic echocardiogram was performed (2D, M-mode, Doppler and color flow Doppler). Left Ventricle The left ventricle is normal in size. Left ventricular systolic function is normal. Ejection Fraction = 55- 60%. No regional wall motion abnormalities noted. Right Ventricle The right ventricle is normal size. The right ventricular systolic function is normal. RV systolic TD I is 12 cm/s. Atria The left atrial size is normal. Right atrial size is normal. Mitral Valve There is mild mitral annular calcification. There is mild mitral regurgitation. Tricuspid Valve The tricuspid valve is normal in structure and function. There is mild tricuspid regurgitation. Pulmo nary artery systolic pressure is at least 26 mmHg if RA pressure is assumed 3 mmHg. Aortic Valve There is mild aortic sclerosis.;. No aortic regurgitation is present. Pulmonic Valve The pulmonic valve is not well visualized. Mild pulmonic valvular regurgitation. Great Vessels The aortic root is normal size. Pericardium/Pleura There is no pericardial effusion. Interpretation Summary The left ventricle is normal in size. Left ventricular systolic function is normal. No regional wall motion abnormalities noted. Ejection Fraction = 55-60%. The right ventricular systolic function is normal. The left atrial size is normal. Right atrial size is normal. There is mild mitral annular calcification. There is mild mitral regurgitation. There is mild tricuspid regurgitation. Pulmonary artery systolic pressure is at least 26 mmHg if RA pressure is assumed 3 mmHg There is mild aortic sclerosis. Mild pulmonic valvular regurgitation. There is no pericardial effusion. Previous study is not available for comparison Hipolito Mc MD 12/19/2018 01:55 PM
[2018-12-19] MEDS: BUDESONIDE/FORMETEROL FUMARATE 160/4.5 mcg INHALER IH SCH ×2 (14:12→23:04)
--- NOTE | 2018-12-19 15:15 | PN ---
Progress Note (short form) - Note Progress Note: cardiology consult appreciated plan to transfer to [facility] for cardiac cath aspirin and plavix given troponin trending upwards
[2018-12-19] MEDS ORDERED: CEFAZOLIN 1 GM in DEXTROSE 5%-WATER - 50 ML IVPB SCH (16:30)
--- NOTE | 2018-12-19 16:49 | EKG ---
Test Reason : Blood Pressure : / mmHG Vent. Rate : 070 BPM Atrial Rate : 070 BPM P-R Int : 170 ms QRS Dur : 088 ms QT Int : 394 ms P-R-T Axes : 027 006 067 degrees QTc Int : 425 ms SINUS RHYTHM WITH PREMATURE ATRIAL COMPLEXES SEPTAL INFARCT (CITED ON OR BEFORE 19-DEC-2018) POSSIBLE LATERAL INFARCT (CITED ON OR BEFORE 19-DEC-2018) ABNORMAL ECG WHEN COMPARED WITH ECG OF 19-DEC-2018 10:48, PREMATURE ATRIAL COMPLEXES ARE NOW PRESENT Confirmed by SHALINI JAFFE MD ([id number]) on 12/19/2018 4:48:59 PM Referred By: Confirmed By:SHALINI JAFFE MD
[2018-12-19] MEDS ORDERED: CEFAZOLIN 1 GM/D5W 1 GM/50 ML BAG ONE (18:17)
[2018-12-19] MEDS ORDERED: ATORVASTATIN CA 80 MG TABLET (FP) PO SCH (22:00)
[2018-12-19] MEDS ORDERED: ATORVASTATIN CA 20 MG TABLET (FP) ONE (22:50)
[2018-12-19] MEDS ORDERED: INSULIN (NOVOLOG) ASPART 100 UNITS/ML 10ML VIAL ONE (22:51)
[2018-12-19] MEDS ORDERED: CARVEDILOL 12.5 MG TABLET (FP) ONE (22:51)
[2018-12-19 23:32] VITALS: BP 170/88; PULSE 83; TEMP 98.3
[2018-12-20] MEDS ORDERED: ASPIRIN COATED 81 MG TABLET.EC PO SCH (10:00)
[2018-12-20] MEDS ORDERED: ASPIRIN 81 MG CHEWABLE TABLETS PO SCH (10:00)
--- NOTE | 2018-12-20 12:52 | EKG ---
Test Reason : Blood Pressure : / mmHG Vent. Rate : 073 BPM Atrial Rate : 073 BPM P-R Int : 184 ms QRS Dur : 076 ms QT Int : 386 ms P-R-T Axes : 046 018 071 degrees QTc Int : 425 ms NORMAL SINUS RHYTHM NORMAL ECG WHEN COMPARED WITH ECG OF 19-DEC-2018 17:02, NO SIGNIFICANT CHANGE WAS FOUND Confirmed by Tony Roberson MD ([id number]) on 12/20/2018 12:51:50 PM Referred By: Confirmed By:Tony Roberson MD
--- NOTE | 2018-12-20 12:52 | EKG ---
Test Reason : Blood Pressure : / mmHG Vent. Rate : 067 BPM Atrial Rate : 067 BPM P-R Int : 182 ms QRS Dur : 076 ms QT Int : 392 ms P-R-T Axes : 033 013 062 degrees QTc Int : 414 ms NORMAL SINUS RHYTHM NORMAL ECG Confirmed by Tony Roberson MD ([id number]) on 12/20/2018 12:51:59 PM Referred By: Confirmed By:Tony Roberson MD
== END 2018-12-19 23:49 | disposition short-term general hospital (02) ==
LOC: JER 01:36 → JERBED 02:31
PROVIDERS: ADMIT Family Medicine; ATTEND Family Medicine
PROC: 3E03329 Introduction of Other Anti-infective into Peripheral Vein, Percutaneous Approach (ICD-10-PCS; principal; 2018-12-19)
PROC: 3E013VG Introduction of Insulin into Subcutaneous Tissue, Percutaneous Approach (ICD-10-PCS; 2018-12-19)
DX: I21.4 Non-ST elevation (NSTEMI) myocardial infarction (principal); R07.89 Other chest pain; E11.22 Type 2 diabetes mellitus with diabetic chronic kidney disease; I12.0 Hypertensive chronic kidney disease with stage 5 chronic kidney disease or end stage renal disease; N18.6 End stage renal disease; Z99.2 Dependence on renal dialysis; Z79.4 Long term (current) use of insulin; L08.89 Other specified local infections of the skin and subcutaneous tissue; E78.5 Hyperlipidemia, unspecified; Z79.82 Long term (current) use of aspirin; E11.52 Type 2 diabetes mellitus with diabetic peripheral angiopathy with gangrene; I96 Gangrene, not elsewhere classified; R77.8 Other specified abnormalities of plasma proteins; R80.8 Other proteinuria
CPT/HCPCS: 36415; 71045-TC-FY; 80053; 80061; 81003; 82550; 82962; 83721; 83735; 83880; 84443; 84484; 85025; 85610; 93005; 93010; 93306-TC; 96372; 96374; 99285-25; G0378

== ENCOUNTER 2020-10-28 18:00 | Observation (INO) | payer OTHER ==
[2020-10-28 18:38] VITALS: BMI 32.8
[2020-10-28] MEDS ORDERED: ONDANSETRON 4 MG/2 ML VIAL IVPUSH ONE (21:29)
[2020-10-28 21:49] LABS: BASO % 0.8 % (0-2.0); EOS % 0.6 % (0-4.5); HEMATOCRIT 32.3 % (35.4-49); LYMPH % 15.9 % (8-40); MCH 30.4 pg (25.7-33.7); MCHC 34.2 g/dl (32.0-35.9); MONO % 5.1 % (3.8-10.2); NEUT % 77.6 % (42.8-82.8); PLATELET COUNT 192 10^3/uL (134-434); RBC 3.63 M/mm3 (4.00-5.60); WHITE BLOOD COUNT 5.2 K/mm3 (4.0-10.0)
[2020-10-28] MEDS ORDERED: ONDANSETRON 4 MG/2 ML VIAL ONE (21:55)
[2020-10-28 22:16] LABS: CALCIUM 8.6 mg/dL (8.5-10.1)
[2020-10-28 22:17] LABS: ALBUMIN 3.4 g/dl (3.4-5.0); BLOOD UREA NITROGEN 38.2 mg/dL (7-18)
[2020-10-28 22:20] LABS: CREATININE 7.2 mg/dL (0.55-1.3)
[2020-10-28 22:21] LABS: BILIRUBIN,TOTAL 0.5 mg/dL (0.2-1); TOT PROT 7.9 g/dl (6.4-8.2)
[2020-10-28] MEDS ORDERED: INSULIN REGULAR HUMAN 100 UNITS/ML *VIAL IVPUSH ONE (23:13)
[2020-10-28] MEDS ORDERED: CALCIUM GLUCONATE 10% - 1,000 MG/10 ML VIAL IVPB ONE (23:13)
[2020-10-28] MEDS ORDERED: DEXTROSE 50%-WATER - 25 GM/50 ML VIAL IVPUSH ONE (23:13)
[2020-10-28] MEDS ORDERED: SODIUM POLYSTYRENE SULFONATE 15 GM/60 ML BOTTLE PO ONE (23:22)
[2020-10-28] MEDS ORDERED: SODIUM POLYSTYRENE SULFONATE 15 GM/60 ML BOTTLE ONE (23:23)
[2020-10-29] MEDS ORDERED: CEFEPIME 1 GM in DEXTROSE 5%-WATER - 1 GM/50 ML IVPB IVPB SCH ×2 (00:30→00:45)
[2020-10-29] MEDS ORDERED: MELATONIN 5 MG TABLETS PO PRN (00:36)
[2020-10-29 08:23] LABS: HEMATOCRIT 30.7 % (35.4-49); HEMOGLOBIN 10.6 GM/dL (11.7-16.9); MCHC 34.5 g/dl (32.0-35.9); MEAN CELL VOLUME 89.9 fl (80-96); MEAN PLT VOLUME 8.3 fl (7.5-11.1); PLATELET COUNT 181 10^3/uL (134-434); RBC 3.41 M/mm3 (4.00-5.60); RDW 15.7 % (11.9-15.9); WHITE BLOOD COUNT 4.8 K/mm3 (4.0-10.0)
[2020-10-29 08:42] LABS: CHLORIDE 99 mmol/L (98-107); SODIUM 137 mmol/L (136-145)
[2020-10-29 08:45] LABS: CALCIUM 8.5 mg/dL (8.5-10.1)
[2020-10-29 08:46] LABS: ANION GAP 11 MMOL/L (8-16); BLOOD UREA NITROGEN 44.1 mg/dL (7-18); CO2 27 mmol/L (21-32); GLUCOSE,RANDOM 114 mg/dL (74-106)
[2020-10-29 08:55] LABS: CREATININE 7.9 mg/dL (0.55-1.3)
[2020-10-29] MEDS ORDERED: DAPTOMYCIN 550 MG in SODIUM CHLORIDE 50 ML IVPB SCH (10:00)
[2020-10-29] MEDS ORDERED: ASPIRIN COATED 81 MG TABLET.EC ONE (10:22)
[2020-10-29] MEDS ORDERED: PANTOPRAZOLE 40 MG TABLET ONE (10:23)
[2020-10-29] MEDS ORDERED: amLODIPine BESYLATE 2.5 MG TABLET (FP) ONE (10:23)
[2020-10-29] MEDS ORDERED: CEFEPIME HCL/D5W 1 GM/50 ML BAG IVPB ONE (10:23)
[2020-10-29] MEDS: PANTOPRAZOLE 40 MG TABLET PO SCH (10:35)
[2020-10-29] MEDS: hydrALAZINE HCL 10 MG TABLET PO SCH ×2 (10:35→21:01)
[2020-10-29] MEDS: ASPIRIN COATED 81 MG TABLET.EC PO SCH (10:35)
[2020-10-29] MEDS: CARVEDILOL 25 MG TABLET (FP) PO SCH ×2 (10:35→21:00)
[2020-10-29] MEDS: amLODIPine BESYLATE 2.5 MG TABLET (FP) PO SCH (10:35)
[2020-10-29] MEDS: CEFEPIME HCL/D5W 1 GM/50 ML BAG IVPB SCH (13:59)
[2020-10-29] MEDS ORDERED: SODIUM CHLORIDE 250 ML IV PRN (16:00)
[2020-10-29] MEDS ORDERED: ATORVASTATIN CA 80 MG TABLET (FP) PO SCH (22:00)
[2020-10-30 07:39] LABS: CHLORIDE 103 mmol/L (98-107); SODIUM 139 mmol/L (136-145)
[2020-10-30 07:41] LABS: CALCIUM 8.6 mg/dL (8.5-10.1)
[2020-10-30 07:42] LABS: ANION GAP 10 MMOL/L (8-16); BLOOD UREA NITROGEN 64.5 mg/dL (7-18); CO2 26 mmol/L (21-32); GLUCOSE,RANDOM 106 mg/dL (74-106); MAGNESIUM 2.2 mg/dL (1.8-2.4)
[2020-10-30 07:45] LABS: PHOSPHOROUS 6.7 mg/dL (2.5-4.9)
[2020-10-30 07:47] LABS: CREATININE 9.9 mg/dL (0.55-1.3)
[2020-10-30] MEDS ORDERED: PT OWN MED DRAWER 7, Y5N ONE (09:56)
[2020-10-30] MEDS ORDERED: CEFEPIME 1 GM in DEXTROSE 5%-WATER 1 GM/100 ML BAG IVPB SCH ×2 (10:07→10:15)
[2020-10-30] MEDS ORDERED: CEFEPIME HCL 1 GM VIAL (RESTRICTED TO ID) ONE (10:09)
[2020-10-30] MEDS ORDERED: DEXTROSE 5%-WATER 100 ML IVPB ONE (10:09)
[2020-10-30] MEDS: CEFEPIME HCL/D5W 1 GM/50 ML BAG IVPB SCH (10:20)
[2020-10-30] MEDS: hydrALAZINE HCL 10 MG TABLET PO SCH (11:30)
[2020-10-30] MEDS: CARVEDILOL 25 MG TABLET (FP) PO SCH (11:30)
[2020-10-30] MEDS: ASPIRIN COATED 81 MG TABLET.EC PO SCH (11:30)
[2020-10-30] MEDS: amLODIPine BESYLATE 2.5 MG TABLET (FP) PO SCH (11:31)
[2020-10-30] MEDS: PANTOPRAZOLE 40 MG TABLET PO SCH (11:33)
[2020-10-30 12:22] VITALS: BP 152/80; PULSE 72
[2020-10-30 14:39] VITALS: TEMP 97.9
[2020-10-31] MEDS ORDERED: DAPTOMYCIN 550 MG in SODIUM CHLORIDE 50 ML IVPB SCH (10:00)
== END 2020-10-30 14:30 | disposition home health service (06) ==
LOC: JER 18:00 → JERBED 23:26 → J4W 10-29 14:46 → J4S 10-30 07:28 → J4W 10-30 07:30
PROVIDERS: ADMIT Internal Medicine; ATTEND Family Medicine
PROC: 3E03329 Introduction of Other Anti-infective into Peripheral Vein, Percutaneous Approach (ICD-10-PCS; principal; 2020-10-28)
PROC: 3E033GC Introduction of Other Therapeutic Substance into Peripheral Vein, Percutaneous Approach (ICD-10-PCS; 2020-10-28)
DX: I13.11 Hypertensive heart and chronic kidney disease without heart failure, with stage 5 chronic kidney disease, or end stage renal disease (principal); I25.10 Atherosclerotic heart disease of native coronary artery without angina pectoris; E11.22 Type 2 diabetes mellitus with diabetic chronic kidney disease; R53.83 Other fatigue; R11.2 Nausea with vomiting, unspecified; M86.9 Osteomyelitis, unspecified; R79.89 Other specified abnormal findings of blood chemistry; E66.9 Obesity, unspecified; Z68.32 Body mass index [BMI] 32.0-32.9, adult; R06.02 Shortness of breath; E78.5 Hyperlipidemia, unspecified; Z99.2 Dependence on renal dialysis
CPT/HCPCS: 36415; 71045-TC-FY; 80048; 80053; 82550; 82962; 83735; 84100; 84484; 85025; 85027; 86803; 87040; 87340; 93005; 93010; 96365; 96367; 96375; 97116-GP; 97162-GP; 99285-25; C9803; G0378; J0878; U0003; U0005

== ENCOUNTER 2022-02-06 03:35 | Inpatient (IN) | payer OTHER ==
[2022-02-06] MEDS ORDERED: SODIUM CHLORIDE IV ONE (04:07)
[2022-02-06 04:51] LABS: VENOUS BASE EXCESS -0.9 mmol/L (-2-2); VENOUS O2 SATURATION 62.4 % (70-80); VENOUS PCO2 45.8 mmHg (38-52); VENOUS PH 7.354 (7.310-7.410)
[2022-02-06 04:58] LABS: BASO % 0.8 % (0-2.0); EOS % 1.9 % (0-4.5); HEMATOCRIT 28.8 % (35.4-49); HEMOGLOBIN 9.6 GM/dL (11.7-16.9); LYMPH % 14.8 % (8-40); MCH 29.1 pg (25.7-33.7); MCHC 33.2 g/dl (32.0-35.9); MEAN CELL VOLUME 87.4 fl (80-96); MEAN PLT VOLUME 7.9 fl (7.5-11.1); NEUT % 72.5 % (42.8-82.8); PLATELET COUNT 197 10^3/uL (134-434); RBC 3.29 M/mm3 (4.00-5.60); RDW 17.9 % (11.9-15.9); WHITE BLOOD COUNT 6.7 K/mm3 (4.0-10.0)
[2022-02-06 05:11] LABS: INR 1.03 (0.83-1.09); PROTHROMBIN TIME (PATIENT) 11.8 SEC (9.7-13.0)
[2022-02-06 05:14] LABS: ACTIVATED PTT 28.3 SECONDS (25.2-36.5)
[2022-02-06 05:18] LABS: CALCIUM 8.6 mg/dL (8.5-10.1)
[2022-02-06 05:19] LABS: ALBUMIN 3.4 g/dl (3.4-5.0); BLOOD UREA NITROGEN 51.8 mg/dL (7-18)
[2022-02-06 05:22] LABS: CREATININE 7.2 mg/dL (0.55-1.3)
[2022-02-06 05:23] LABS: TOT PROT 7.1 g/dl (6.4-8.2)
[2022-02-06 05:24] LABS: BILIRUBIN,TOTAL 0.4 mg/dL (0.2-1)
[2022-02-06 05:38] LABS: N-TERMINAL BNP 54826.6 pg/ml (5-125)
[2022-02-06] MEDS ORDERED: ALBUTEROL SO4 0.083% IH SOL 2.5 MG/3 ML VIAL.NEB. NEB PRN (09:35)
[2022-02-06] MEDS ORDERED: ACETAMINOPHEN 325 MG TABLET (FP) PO PRN (09:37)
[2022-02-06] MEDS ORDERED: hydrALAZINE HCL 10 MG TABLET PO SCH (10:00)
[2022-02-06] MEDS: amLODIPine BESYLATE 5 MG TABLET (FP) PO SCH (10:12)
[2022-02-06] MEDS: PANTOPRAZOLE 40 MG TABLET PO SCH (10:12)
[2022-02-06] MEDS: CARVEDILOL 25 MG TABLET (FP) PO SCH ×2 (10:12→22:53)
[2022-02-06] MEDS: ASPIRIN COATED 81 MG TABLET.EC PO SCH (10:12)
[2022-02-06] MEDS: HEPARIN NA (PORCINE) 5,000 UNITS/ML 1ML VIAL SQ SCH ×2 (10:12→22:53)
[2022-02-06] MEDS ORDERED: ASPIRIN COATED 81 MG TABLET.EC ONE (10:15)
[2022-02-06] MEDS ORDERED: PANTOPRAZOLE 40 MG TABLET PO ONE (10:15)
[2022-02-06] MEDS ORDERED: amLODIPine BESYLATE 5 MG TABLET (FP) ONE (10:15)
[2022-02-06] MEDS ORDERED: hydrALAZINE HCL 10 MG TABLET ONE ×2 (10:16→10:17)
[2022-02-06] MEDS ORDERED: CARVEDILOL 25 MG TABLET (FP) ONE ×2 (10:16→10:18)
[2022-02-06] MEDS ORDERED: HEPARIN NA (PORCINE) 5,000 UNITS/ML 1ML VIAL ONE (10:16)
[2022-02-06] MEDS: BUDESONIDE/FORMETEROL FUMARATE 160/4.5 mcg INHALER IH SCH ×2 (10:29→22:54)
[2022-02-06] MEDS: INSULIN SLIDING SCALE (NOVOLOG) 1 VIAL SQ SCH ×3 (10:29→21:45)
[2022-02-06 13:00] VITALS: RESP 18
[2022-02-06] MEDS ORDERED: SODIUM CHLORIDE 250 ML IV PRN (14:13)
[2022-02-06] MEDS ORDERED: EPOETIN ALFA-EPBX 3,000 UNIT/ML VIAL IVPUSH ONE (14:45)
[2022-02-06] MEDS: hydrALAZINE HCL 25 MG TABLET (FP) PO SCH (18:50)
[2022-02-06] MEDS ORDERED: guaiFENesin/D-M SUGAR-FREE/ACLHOL-FREE 5 ML UNIT DOSE PO PRN (22:37)
[2022-02-06] MEDS: INSULIN (LEVEMIR) 100 UNITS/ML UNITS SQ SCH (22:54)
[2022-02-07] MEDS: hydrALAZINE HCL 25 MG TABLET (FP) PO SCH ×3 (02:18→18:43)
[2022-02-07] MEDS: INSULIN SLIDING SCALE (NOVOLOG) 1 VIAL SQ SCH ×4 (06:44→22:49)
[2022-02-07] MEDS: amLODIPine BESYLATE 5 MG TABLET (FP) PO SCH (10:28)
[2022-02-07] MEDS: CARVEDILOL 25 MG TABLET (FP) PO SCH ×2 (10:28→21:48)
[2022-02-07] MEDS: BUDESONIDE/FORMETEROL FUMARATE 160/4.5 mcg INHALER IH SCH ×2 (10:28→21:49)
[2022-02-07] MEDS: HEPARIN NA (PORCINE) 5,000 UNITS/ML 1ML VIAL SQ SCH ×2 (10:28→21:48)
[2022-02-07] MEDS: PANTOPRAZOLE 40 MG TABLET PO SCH (10:28)
[2022-02-07] MEDS: ASPIRIN COATED 81 MG TABLET.EC PO SCH (10:28)
[2022-02-07 11:19] LABS: HEMATOCRIT 28.4 % (35.4-49); HEMOGLOBIN 9.2 GM/dL (11.7-16.9); MCH 28.6 pg (25.7-33.7); MCHC 32.5 g/dl (32.0-35.9); MEAN CELL VOLUME 88.1 fl (80-96); MEAN PLT VOLUME 8.2 fl (7.5-11.1); PLATELET COUNT 178 10^3/uL (134-434); RBC 3.22 M/mm3 (4.00-5.60); RDW 17.5 % (11.9-15.9); WHITE BLOOD COUNT 5.6 K/mm3 (4.0-10.0)
[2022-02-07 11:37] LABS: ALBUMIN 3.1 g/dl (3.4-5.0); BLOOD UREA NITROGEN 37.4 mg/dL (7-18); CALCIUM 8.9 mg/dL (8.5-10.1)
[2022-02-07 11:41] LABS: CREATININE 5.4 mg/dL (0.55-1.3)
[2022-02-07 11:42] LABS: BILIRUBIN,TOTAL 0.6 mg/dL (0.2-1); TOT PROT 6.5 g/dl (6.4-8.2)
[2022-02-07] MEDS: COLLAGENASE CLOSTRIDIUM HIST. 30 GRAMS TUBE TP SCH (16:24)
[2022-02-07] MEDS ORDERED: SODIUM CHLORIDE 250 ML IV PRN (17:40)
[2022-02-07] MEDS: INSULIN (LEVEMIR) 100 UNITS/ML UNITS SQ SCH (22:48)
[2022-02-08] MEDS: hydrALAZINE HCL 25 MG TABLET (FP) PO SCH ×2 (03:28→10:14)
[2022-02-08] MEDS: INSULIN SLIDING SCALE (NOVOLOG) 1 VIAL SQ SCH (06:43)
[2022-02-08] MEDS: HEPARIN NA (PORCINE) 5,000 UNITS/ML 1ML VIAL SQ SCH (09:26)
[2022-02-08] MEDS: CARVEDILOL 25 MG TABLET (FP) PO SCH (09:26)
[2022-02-08] MEDS: PANTOPRAZOLE 40 MG TABLET PO SCH (09:26)
[2022-02-08] MEDS: amLODIPine BESYLATE 5 MG TABLET (FP) PO SCH (09:26)
[2022-02-08] MEDS: ASPIRIN COATED 81 MG TABLET.EC PO SCH (09:26)
[2022-02-08] MEDS: BUDESONIDE/FORMETEROL FUMARATE 160/4.5 mcg INHALER IH SCH (10:14)
[2022-02-08] MEDS: COLLAGENASE CLOSTRIDIUM HIST. 30 GRAMS TUBE TP SCH (10:14)
[2022-02-08 10:55] VITALS: BP 151/87; PULSE 81; TEMP 98.4
== END 2022-02-08 12:05 | disposition left against medical advice (07) | DRG 299 ==
LOC: JER 03:35 → JERBED 05:47 → J6W 11:35 → J4W 02-08 06:42
PROVIDERS: ADMIT Family Medicine; ATTEND Family Medicine
PROC: 5A1D70Z Performance of Urinary Filtration, Intermittent, Less than 6 Hours Per Day (ICD-10-PCS; principal; 2022-02-06)
DX: E11.52 Type 2 diabetes mellitus with diabetic peripheral angiopathy with gangrene (principal); N18.6 End stage renal disease; I13.2 Hypertensive heart and chronic kidney disease with heart failure and with stage 5 chronic kidney disease, or end stage renal disease; E11.22 Type 2 diabetes mellitus with diabetic chronic kidney disease; J44.9 Chronic obstructive pulmonary disease, unspecified; E11.69 Type 2 diabetes mellitus with other specified complication; D64.9 Anemia, unspecified; E78.5 Hyperlipidemia, unspecified; I25.10 Atherosclerotic heart disease of native coronary artery without angina pectoris; Z99.2 Dependence on renal dialysis; E87.70 Fluid overload, unspecified
CPT/HCPCS: 0241U-QW; 36415; 71045-TC-FY; 80053; 82550; 82553; 82803; 82962; 83605; 83880; 84484; 85025; 85027; 85610; 85730; 86140; 86803; 86850; 86900; 86901; 87040; 87340; 93005; 93010; 93970-TC; 99285-25; J1644; Q5106